=== PATIENT | female | born 1995 | race Caucasian/White ===

== ENCOUNTER → 2017-12-13 17:42 | Outpatient (CLI) | payer BC, SELFPAY | PROVIDERS: Visit Provider Obstetrics & Gynecology | DX: Z34.90 Encounter for supervision of normal pregnancy, unspecified, unspecified trimester (principal) | CPT/HCPCS: 87086 ==

== ENCOUNTER → 2017-12-27 08:51 | Outpatient (CLI) | payer BC, SELFPAY ==
[2017-12-27 09:51] LABS: Absolute Lymphocyte Count 1.78 X10^3/ul (0.83-4.51); Absolute Neutrophil Count 6.8 X10^3/uL (2.0-7.7); Basophil# 0.02 X10^3/uL; Basophil% 0.2 % (0-1); Eosinophil# 0.15 X10^3/uL; Eosinophils% 1.6 % (0-5); Hematocrit 38.4 % (37-47); Hemoglobin 13.3 g/dl (12.0-15.0); Lymphocyte # 1.78 X10^3/ul (4.0); Lymphocyte % 19.2 % (19-41); Mean Corp Hgb Conc 34.6 g/gl (32-36); Mean Corpuscular Volume 86.7 fL (81-99); Monocyte# 0.53 X10^3/uL; Monocyte% 5.7 % (0-10); Neutrophil # 6.77 X10^3/uL (2.7-7.7); Neutrophil % 73.1 % (47-70); Platelet Count 251 K/mm3 (150-450); RBC Distribution Width CV 12.2 % (11.6-14.6); RBC Distribution Width SD 38.1 fl (35.1-43.9); Red Blood Count 4.43 M/mm3 (4.2-5.4); White Blood Count 9.3 K/mm3 (4.4-11.0)
[2017-12-27 09:53] LABS: POSITIVE COUNT NO; POSITIVE DIFFERENTIAL NO; POSITIVE MORPHOLOGY NO
[2017-12-28 09:22] LABS: HIV - WCH Non-Reactive (Nonreactive); Rubella IgG 26.3 IU/mL
[2017-12-28 10:04] LABS: HEPATITIS B SURFACE AG Negative (Negative)
[2017-12-30 02:34] LABS: Rapid Plasmin Reagin (RPR) NONREACTIVE (NONREACTIVE)
== END ==
PROVIDERS: Visit Provider Obstetrics & Gynecology
DX: Z34.90 Encounter for supervision of normal pregnancy, unspecified, unspecified trimester (principal)
CPT/HCPCS: 36415; 85025; 86592; 86703; 86762; 86850; 86900; 87340

== ENCOUNTER → 2018-01-09 09:30 | Outpatient (CLI) | payer BC, SELFPAY | DX: Z36.82 Encounter for antenatal screening for nuchal translucency (principal) | CPT/HCPCS: 36415 ==

== ENCOUNTER → 2018-03-03 07:54 | Outpatient (CLI) | payer MEDICAID, SELFPAY ==
--- NOTE | 2018-03-03 07:54 | DT_ITS ---
This patient was seen during an EMR downtime February 27, 2018 - March 06, 2018. This patient may have a combination of paper and electronic documentation or all paper documentation. All documentation is viewable within the e-chart portion of [employer] ([place] for each patient visit.
--- NOTE | 2018-03-03 07:57 | US_ITS ---
STUDY: SECOND AND THIRD TRIMESTER OBSTETRICAL ULTRASOUND REASON FOR EXAM: Female, 22 years old. Routine survey. LMP: 10/16/2017 TECHNIQUE: Transabdominal PRIOR ULTRASOUND: None. FINDINGS: There is a single intrauterine fetus. The fetus is in a cephalic presentation. There is demonstrated cardiac activity with a heart rate of 140 bpm. There is a normal amniotic fluid volume. The largest amniotic fluid pocket measures 5.6 x 6.8 cm. The placenta is posterior in location and is not low lying. There are Grade 0 placental changes. The cervix measures 3.6 cm in length. The bilateral adnexal regions are normal. BIOMETRY: BPD: 4.7 cm: 20 weeks, 1 days HC: 17.2 cm: 19 weeks, 6 days AC: 14.6 cm: 20 weeks, 0 days FL: 3.2 cm: 20 weeks, 1 days age by current US: 20 weeks, 1 days. ALVAREZ by current US: 07/20/2018. Estimated weight: 323 grams, +/- 47 grams, 59 %. Age by LMP: 19 weeks, 5 days. ALVAREZ by LMP: . ANATOMY: Gender: Indeterminant Cranium: Normal lateral ventricles. Normal choroid plexus. Normal cerebellum. Normal cisterna magna. Normal face, nose and lips. Chest: Normal 4-chamber heart. Abdomen/Pelvis: Normal diaphragm. Normal stomach. Normal abdominal wall. Normal cord insertion. Normal 3 vessel cord. Normal kidneys. Normal bladder. Spine: Normal cervical spine. Normal thoracic spine. Normal lumbar spine. Normal sacrum. Extremities: Normal bilateral upper extremities. Normal bilateral lower extremities. US/OB Anatomy Scan IMPRESSION: Single live intrauterine at 20 weeks, 1 day by ultrasound with ALVAREZ of 07/20/2018. Heart rate of 140 bpm. No suspicious sonographic findings Electronically Signed: Chaitanya Moreno MD at 8:25 EDT , Service support ,
== END ==
PROVIDERS: Visit Provider Obstetrics & Gynecology
DX: O09.91 Supervision of high risk pregnancy, unspecified, first trimester (principal); Z3A.00 Weeks of gestation of pregnancy not specified
CPT/HCPCS: 76805

== ENCOUNTER → 2018-03-24 17:04 | Outpatient (CLI) | payer MEDICAID, SELFPAY ==
--- OUTSIDE RECORDS SUMMARY | 2018-03-24 17:07 | XMS RPT_ITS ---
:1995 Author Organization OHIP Support Name Relationship Address Phone SCHFLER Unavailable [address] + [place] [address] STANISLAV RUIZ Unavailable [address] + [place] [address] SCHFLER Unavailable [address] + [place] [address] STANISLAV RUIZ Unavailable [address] + [place] [address] SCHFLER Unavailable [address] + [place] [address] STANISLAV RUIZ Unavailable [address] + [place] [address] SCHFLER Unavailable [address] + [place] [address] STANISLAV RUIZ Unavailable [address] + [place] [address] SCHFLER Unavailable [address] + [place] [address] STANISLAV RUIZ Unavailable [address] + [place] [address] SCHFLER Unavailable [address] + [place] [address] STANISLAV RUIZ Unavailable [address] + [place] [address] BALBIR RUIZ Unavailable [address] [facility] + [place] [address] STANISLAV RUIZ Unavailable Unavailable + SCHFLER Unavailable [address] + [place] [address] STANISLAV RUIZ Unavailable [address] + [place] [address] SCHFLER Unavailable [address] + [place] [address] STANISLAV RUIZ Unavailable [address] + [place] [address] SCHFLER Unavailable [address] + [place] [address] STANISLAV RUIZ Unavailable [address] + [place] [address] SCHFLER Unavailable [address] + [place] [address] STANISLAV RUIZ Unavailable [address] + [place] [address] SCHFLER Unavailable [address] + [place] [address] STANISLAV RUIZ Unavailable [address] + [place] [address] NOT GIVEN Unavailable Unavailable Unavailable STANISLAV RUIZ Unavailable [address] + [place], [place] [id number] STANISLAV RUIZ Unavailable [address] + [place] [address] U Unavailable Unavailable Unavailable NOT GIVEN Unavailable Unavailable Unavailable NOT GIVEN Unavailable Unavailable Unavailable STANISLAV RUIZ Unavailable [address] + [place], [place] [phone] NOT GIVEN Unavailable Unavailable Unavailable STANISLAV RUIZ Unavailable [address] + [place], [place] [phone] Care Team Providers Name Role Phone [facility] Admitting Unavailable [facility] Attending Unavailable [facility] Primary Care Unavailable JEFFREY GARVEY Consulting Unavailable PROVIDER, UNKNOWN Consulting Unavailable VALENTINA WINKLER DO Admitting Unavailable VALENTINA WINKLER DO Attending Unavailable VALENTINA WINKLER DO Primary Care Unavailable JEFFREY GARVEY Consulting Unavailable PROVIDER, UNKNOWN Consulting Unavailable VALENTINA WINKLER DO Admitting Unavailable VALENTINA WINKLER DO Attending Unavailable VALENTINA WINKLER DO Primary Care Unavailable JEFFREY GARVEY Consulting Unavailable PROVIDER, UNKNOWN Consulting Unavailable VALENTINA WINKLER DO Admitting Unavailable VALENTINA WINKLER DO Attending Unavailable VALENTINA WINKLER DO Primary Care Unavailable JEFFREY GARVEY Consulting Unavailable PROVIDER, UNKNOWN Consulting Unavailable MATHIEU ANDERSON Attending Unavailable CHAVEZ, PHYLLIS Rolon Referring Unavailable NO PRIMARY CARE, Primary Care Unavailable Marcanthony, Phyllis Attending Unavailable Primay Care Physicia, No Primary Care Unavailable Marcanthony, Phyllis Attending Unavailable Marcanthony, Phyllis Attending Unavailable Marcanthony, Phyllis Referring Unavailable Marcanthony, Phyllis Attending Unavailable Marcanthony, Phyllis Attending Unavailable Marcanthony, Phyllis Referring Unavailable Primay Care Physicia, No Primary Care Unavailable John, Leda Attending Unavailable Primay Care Physicia, No Referring Unavailable Marcanthony, Phyllis Attending Unavailable Primay Care Physicia, No Referring Unavailable Marcanthony, Phyllis Attending Unavailable Primay Care Physicia, No Referring Unavailable Primay Care Physicia, No Primary Care Unavailable Marcanthony, Phyllis Attending Unavailable Primay Care Physicia, No Referring Unavailable Primay Care Physicia, No Primary Care Unavailable Primay Care Physicia, No Primary Care Unavailable Marcanthony, Phyllis Attending Unavailable Primay Care Physicia, No Referring Unavailable Primay Care Physicia, No Primary Care Unavailable [place], Molly Attending Unavailable PROBLEMS PROBLEMS DATE TYPE CONDITION / CODE ATTENDING STATUS SOURCE 03/24/2018 Unknown O09.91 - Leda Lopez Active Rahul Supervision of [facility] high risk Hospital , Repository unspecified, first trimester / O09.91(ICD-10) 03/24/2018 Unknown O09.211 - JohnLeda chavarria Active Opal Supervision of [facility] with Hospital history of Repository pre-term labor, first trimester / O09.211(ICD-10) 03/24/2018 Unknown O09.299 - JohnLeda chavarria Active Rahul Supervision of [facility] with [facility] other poor Repository reproductive or obstetric history, unspecified trimester / O09.299(ICD-10) 03/24/2018 Unknown Z36.9 - Encounter [place]eda chavarria Active Opal for Community screening, Hospital unspecified / Repository Z36.9(ICD-10) 03/24/2018 Unknown R80.9 - [place]eda Active Rahul Proteinuria, Community unspecified / Hospital R80.9(ICD-10) Repository 03/24/2018 Unknown Z3A.22 - 22 weeks [place]stown[place]eda chavarria Active Opal gestation of Community / Hospital Z3A.22(ICD-10) Repository 03/09/2018 Unknown Z3A.18 - 18 weeks Chavez, Active Rahul gestation of [facility] / Hospital Z3A.18(ICD-10) Repository 12/14/2017 Unknown Z34.90 - Encounter Chavez, Active Opal for supervision of [facility] normal , Hospital unspecified, Repository unspecified trimester / Z34.90(ICD-10) 08/06/2017 Unknown SUPERVISION OF Chavez, Active Rahul HIGH RISK [facility] , UNS, Hospital FIRST TRIMESTER / Repository O09.91(ICD-10) 08/06/2017 Unknown WEEKS OF GESTATION Brycerimmaamrit, Active Opal OF NOT [facility] SPECIFIED / Hospital Z3A.00(ICD-10) Repository 07/22/2017 Principle Encounter for VALENTINA WINKLER Active Ata Garnett Diagnosis supervision of [facility] , first Repository trimester / Z3481(ICD-10) PROCEDURES PROCEDURES No Procedure Records FoundRESULTS RESULTS CASE SPECIALIST OFFICE VISIT Observed: 03/24/2018 Status: F Source: [place] REPORT 10:02 AM [facility] REPOSITORY [facility] [address] [place] [address] [phone] VISITDate of Service: 03/24/18MR#: [id number] Acct: [id number]: BALBIR RUIZ Rep #: [id number]: 1995 Provider: JOEL Levy/Sex: 22/F [facility]Status: SignedIntakeVital Signs03/24/18 Height 5 ft 3 in03/24/18 Weight: 177 lb 8 oz03/24/18 Body Mass Index (BMI) 31.406 Blood Pressure 131/72IntakeVisit Reasons: 22 weeksChief Complaint: est obInterpreter Required: NoIs patient in pain?: NoAllergiesNo Known Allergies Allergy ( Verified 03/24/18 09:47)Medicationsprenatal vitamin,calcium,uftlnrdz-rdsp-aencc acid tablet 1 tab PO QDAY 12/13/17 [HistoryConfirmed 03/24/18]hydroxyprogesterone (PF)( preserving) 250 mg/mL (1 mL) IM oil 250 mg IM QWEEK 02/07/18[History Confirmed 03/24/18]Last Menstral Period: 10/16/17Zika: Zika virus screening: NegativeBreastfeeding: NoPFSHPFSHSocial HistorySmoking Status: Former smokersecond hand exposure: Noalcohol intake: neversubstance use type: does not usewhat type of physical activity do you participate in: noneadditional social history: CodyPregancy HistoryGravida 3 Elective abortionsHx Para 1 Spontaneous abortions 1Past PregnanciesDel. DatName GA/WeeksOutcome Route Bth WeigInfant GLabor LgAnesthesDel LocaProviderFOBe ht en th ia tn04/28/16Adeline 34 live birNSVD 5lbs 9 oFemale none millersbth - pre unces iqhquejQWO60 weeks: Details: BALBIR RUIZ is a 22 year old who presents for routine OB visit.OB VisitEDD CalculatorEstimated Delivery Date 07/23/18Based on LMP (certain) Current WG 22w 5dFetal Number 1Expected Delivery Route/PlanSVDPrenatal Specific Issue/Plansflu vaccine declinedminichart given: yestdap vaccine: []rhogam: NALARC form signed: declineslabor support person: Codypain management: no epiduralcut cord/dad catch: cord onlybreastfeeding: yesPP control planned: []special requests: []Initial Weight: Not RecordedDate Weight BP Urine PrFHR FuHt Pres MoCTX DilationFetal StVisit NoProviderCommentsE ot v teGA G Effaclucose edVisit NotesVisit Date: 03/24/18Doing well. No VB, LOF. FEDERICO Allen on 03/24/18Visit Date: 02/24/18needs to have second set of sequential screen drawn. no vb lof cramping. anatomy scanordered Phyllis Glass MD on 02/24/18Visit Date: Doing well. Nausea improved. Denies CTX, LOF, VB FEDERICO Allen on Visit Date: 12/27/17no vb cramping doing well Phyllis Glass MD on ACOGFirst TrimesterFirst Trimester: Desire for , Alcohol, Tobacco Cessation, Illicit/RecreationalDrug/Substance Use, Intimate Partner Violence, Barriers to care, Unstable Housing,Communication Barriers, Environmental/Work Hazards, Anticipated Course of Care,Toxoplasmosis Precations, Use of Any medications, Sexual activity, Exercise, Dental Care,Sauna/Hot tub use, Seat Belt use, Childbirth classes/Hospital facilities, ,Travel, Indications for US and Screening for AneuploidyPrenatal DiagnosticsPrenatal DiagnosticsPrenatal LabsBlood Type A POSITIVE 12/27/17Antibody Screen NEGATIVE 12/27/17Hct 38.4 % (37-47) 12/27/17Hgb 13.3 g/dl (12.0-15.0) 12/27/17Obstetrics Ultrasound 03/03/18Rubella IgG Antibody 26.3 IU/mL 12/27/17RPR NONREACTIVE ( NONREACTIVE) 12/27/17Hep Bs Antigen Negative (Negative) 12/27/17Chlam trachomat DNA PCR Negative (Negative) 08/03/17N.gonorrhoeae DNA (PCR) Negative (Negative) 08/03/17Details: HIV:Urine Culture:Sequential Screen:NIPT Screen: ROSConstReports system reviewed and no additional complaints, except as docuGIDenies nausea, Denies vomiting, Denies abdominal painExamConstGeneral: cooperativeNutritional Appearance: well nourishedGIPalpation: soft, nontender, other (gravid)[id number] Urine Glucose Negative Last Edit by Nora Lamas on 03/24/18 09:50Office Urine Protein 1+ Last Edit by Nora Lamas on 03/24/18 09: 50Assessment AND PlanProblems1. Supervision of high risk in first trimester O09.91PRR EDD1 PC Burke Cody2. High risk due to history of labor in first trimester O09.858Z0K0 ALVAREZ 07/23/18 gender surprise PC Burke Melvin plan progesterone soexxstuyl36-42 weekMakena information/order faxed EM3. History of miscarriage, currently O09.2994. screening encounter Z36.9NT on 01/09/18 WNL5. 22 weeks gestation of Z3A.22PlanOrders placed: noneReviewed anatomy USWeekly progesterone injections at homeReviewed of labor precautions, movement/kick countsACOG trimester education reviewed and updatedSee problem list details for updated plan of careGestational age appropriate handout givenRTO: 4 weeksOrdersOrders:CodingLevel of Care CodeOff vis,est,level 3DiagnosesSupervision of high risk in first trimester O09.91Trimester: first trimesterHigh risk due to history of labor in first trimester O09.211Trimester: first trimesterHistory of miscarriage, currently O09.299Antenatal screening encounter Z36.922 weeks gestation of Z3A. 1002 <Electronically signed by Leda CABALLERO>Date Leda CORTEZCCosigner Signature: Date (if applicable)CC: DOWNTIME REPORT Observed: 03/16/2018 Status: F Source: [place] 12:18 PM [facility] [address] [place] [address]Cmjmnish ReportMR#: [id number] Acct: [id number]: BALBIR RUIZ Rep #: [id number]: 1995 22 From: Leandro LewisPCP: Care Physician, No Primary Status: REG JESUIThis patient was seen during an EMR downtime February 27, 2018 - March 06, 2018. This patient mayhave a combination of paper and electronic documentation or all paper documentation. Alldocumentation is viewable within the e-chart portion of [employer] for each patient visit. OB ANATOMY SCAN Observed: 03/03/2018 Status: F Source: RAHUL 7:57 AM [facility]ITAL[facility] [address] [place] [address]UW Anatomy ScanMR#: [id number] Acct: [id number]: BALBIR RUIZ Rep #: [id number]: 1995 F 22 From: Jim Moreno MDPCP: Care Physician, No Primary Status: REG CLIStudy: OB Anatomy Scan Date of Exam: 03/03/18Exam# [id number] Ordering Dr: Phyllis Glass MDSTUDY: SECOND AND THIRD TRIMESTER OBSTETRICAL ULTRASOUNDREASON FOR EXAM: Female, 22 years old. Routine survey.LMP: 10/16/2017TECHNIQUE: TransabdominalPRIOR ULTRASOUND: None. FINDINGS:There is a single intrauterine fetus. The fetus is in a cephalicpresentation. There is demonstrated cardiac activity with a heart rate of140 bpm. There is a normal amniotic fluid volume. The largest amnioticfluid pocket measures 5.6 x 6.8 cm. The placenta is posterior in locationand is not low lying. There are Grade 0 placental changes. The cervixmeasures 3.6 cm in length. The bilateral adnexal regions are normal.BIOMETRY:BPD: 4.7 cm: 20 weeks, 1 daysHC: 17.2 cm: 19 weeks, 6 daysAC: 14.6 cm: 20 weeks, 0 daysFL: 3.2 cm: 20 weeks, 1 daysFetal age by current US: 20 weeks, 1 days. ALVAREZ by current US: 07/20/2018.Estimated weight: 323 grams, +/- 47 grams, 59 %. Age by LMP: 19 weeks, 5 days. ALVAREZ by LMP: . ANATOMY:Gender: IndeterminantCranium: Normal lateral ventricles. Normal choroid plexus. Normalcerebellum. Normal cisterna magna. Normal face, nose and lips.Chest: Normal 4-chamber heart.Abdomen/Pelvis: Normal diaphragm. Normal stomach. Normal abdominal wall.Normal cord insertion. Normal 3 vessel cord. Normal kidneys. Normalbladder.Spine: Normal cervical spine. Normal thoracic spine. Normal lumbarspine. Normal sacrum.Extremities: Normal bilateral upper extremities. Normal bilateral lowerextremities. ORDER #: [id number] US/OB Anatomy ScanIMPRESSION:Single live intrauterine at 20 weeks, 1 day by ultrasound withEDD of 07/20/2018. Heart rate of 140 bpm. No suspicious sonographicfindingsElectronically Signed:Chaitanya Moreno MD2018/03/08 at 8:25 EDTT [phone], Service support , NP: No Primary Care Physician; Phyllis Glass MD Social Services Aide:Signed CASE SPECIALIST OFFICE VISIT Observed: 02/24/2018 Status: F Source: RAH[place] REPORT 11:14 AM [facility] [address] [place], [place] [phone] VISITDate of Service: 02/24/18MR#: [id number] Acct: [id number]: BALBIR RUIZ Rep #: [id number]: 1995 Provider: Phyllis Glass MDAge/Sex: 22/F [facility]: SignedIntakeVital Signs02/24/18 Height 5 ft 3 in02/24/18 Weight: 167 lb 8 oz02/24/18 Body Mass Index (BMI) 29.706 Blood Pressure 124/82IntakeVisit Reasons: OB - 18 WEEKSIs patient in pain?: NoAllergiesNo Known Allergies Allergy (Verified 02/14/18 12:18) Medicationsprenatal vitamin,calcium,vivtfxzt-ssun-xnhnb acid tablet 1 tab PO QDAY 12/13/17 [HistoryConfirmed 02/14/18]hydroxyprogesterone (PF)( preserving) 250 mg/mL (1 mL) IM oil 250 mg IM QWEEK 02/07/18[History Confirmed 02/14/18]Last Menstral Period: 10/16/17Zika: Zika virus screening: NegativePFSHPFSHSocial HistorySmoking Status: Former smokersecond hand exposure: Noalcohol intake: neversubstance use type: does not usewhat type of physical activity do you participate in: noneadditional social history: CodyPregancy HistoryGravida 3 Elective abortionsHx Para 1 Spontaneous abortions 1Past PregnanciesDel. DatName GA/WeeksOutcome Route [facility] Vaibhavt Taylor LgAnesthesDel LocaProviderFOBe ht en th ia tn04/28/16Adeline 34 live birNSVD 5lbs 9 oFemale none millersbth - pre unces urgtermHPIOB - 18 WEEKS:Details: BALBIR RUIZ is a 22 year old who presents for routine OB visit.OB VisitEDD CalculatorEstimated Delivery Date 07/23/18Based on LMP (certain) 10/16/17Current WG 18w 5dFetal Number 1Expected Delivery Route/PlanSVDPrenatal Specific Issue/ Plansflu vaccine declinedminichart given: yestdap vaccine: []rhogam: []LARC form signed: []labor support person: Codypain management: []cut cord/dad catch: cord onlybreastfeeding: yesPP control planned: []special requests: []Initial Weight: Not RecordedDate Weight BP Urine PrFHR FuHt Pres MoCTX DilationFetal StVisit NoProviderCommentsE ot v teGA G Effaclucose edVisit NotesVisit Date: 02/24/18needs to have second set of sequential screen drawn. no vb lof cramping. anatomy scanordered Phyllis Glass MD on 02/24/18Visit Date: 01/24/18Doing well. Nausea improved. Denies CTX, LOF, VB FEDERICO Allen on 01/24/18Visit Date: 12/27/17no vb cramping doing well Phyllis Glass MD on 01/04/18ACOGFirst TrimesterFirst Trimester: Desire for , Alcohol, Tobacco Cessation, Illicit/RecreationalDrug/Substance Use, Intimate Partner Violence, Barriers to care, Unstable Housing,Communication Barriers, Environmental/Work Hazards, Anticipated Course of Care,Toxoplasmosis Precations, Use of Any medications, Sexual activity, Exercise, Dental Care, Sauna/Hot tub use, Seat Belt use, Childbirth classes/Hospital facilities, , Travel, Indications for US and Screening for AneuploidyPrenatal DiagnosticsPrenatal DiagnosticsPrenatal LabsBlood Type A POSITIVE 12/27/17Antibody Screen NEGATIVE 12/27/17Hct 38.4 % (37-47) 12/27/17Hgb 13.3 g/dl (12.0-15.0) 12/27/17Rubella IgG Antibody 26.3 IU/mL 12/27/17RPR NONREACTIVE ( NONREACTIVE) 12/27/17Hep Bs Antigen Negative (Negative) 12/27/17Chlam trachomat DNA PCR Negative (Negative) 08/03/17N.gonorrhoeae DNA (PCR) Negative (Negative) 08/03/17Details: HIV:Urine Culture:Sequential Screen:NIPT Screen:ROSConstDenies fever(s)GIDenies abdominal pain, Reports as per HPIGUDenies vaginal discharge, Denies abnormal vaginal bleeding, Reports as per HPIExamConstGeneral: healthy appearing, comfortable, no acute distressGIInspection: normal to inspectionPalpation: soft , vgwzpnsfnJuzgdhtXGSOM6Fjyymn Urine Glucose Negative Last Edit by Silvina Harley on 02/24/18 11:10Office Urine Protein Negative Last Edit by Silvina Harley on 02/24/18 11:10Assessment AND PlanProblems1. Supervision of high risk in first trimester O09.91PRR EDD1 PC Burke Cody2. High risk due to history of labor in first trimester O09.539Q2O3 ALVAREZ 07/23/18 gender surprise PC Lashay Melvin plan progesterone efnbbfndzg15 -36 weekMakena information/order faxed 01/24/18 EM3. History of miscarriage, currently O09.2994. screening encounter Z36.9NT on 01/09/18 WNL5. 18 weeks gestation of Z3A.18PlanOrders placed: anatomy scanACOG trimester education reviewed and updated.see problem list details for updated plan management information.GA appropriate handout given.OrdersOrders:CodingLevel of Care CodeOB RoutineDiagnosesSupervision of high risk in first trimester O09.91Trimester: first trimesterHigh risk due to history of labor in first trimester O09.211Trimester: first trimesterHistory of miscarriage, currently O09.299Antenatal screening encounter Z36.918 weeks gestation of Z3A. 1114 <Electronically signed by Phyllis Glass MD>Date Phyllis Glass MDCosigner Signature: Date (if applicable)CC: OFFICE VISIT REPORT Observed: 02/22/2018 Status: F Source: RAHUL 2:41 PM [facility] CarsonR[place], [place] [address]IMUTRU VISITDate of Service: 02/14/18MR#: [id number] Acct: [id number]: BALBIR RUIZ Rep #: [id number]: 1995 Provider: Phyllis Glass MDAge/Sex: Location: [facility].CStatus: SignedIntakeVital Signs02/14/18 Height 5 ft 3 in02/14/18 Weight: 164 lb 2 oz02/14/18 Body Mass Index (BMI) 29.005 Blood Pressure 119/79IntakeVisit Reasons: INJECTIONInterpreter Required: NoAllergiesNo Known Allergies Allergy (Verified 02/14/18 12:18)Medicationsprenatal vitamin,calcium,zvaqnrog-plfb-fwmbq acid tablet 1 tab PO QDAY 12/13/17 [HistoryConfirmed 02/14/18]hydroxyprogesterone (PF)( preserving) 250 mg/mL (1 mL) IM oil 250 mg IM QWEEK 02/07/18[History Confirmed 02/14/18]Post menopausal: NoPatient : YesNursing NoteHeather presented for a [place] injection. Patient here with sister to be educated onadministering Chere[place] injection. Sister has given IM injections in the past. Patient's sistereducated on drawing up, prepping skin, administering injection in gluteal muscle. Patient'ssister was able to verbally recall nurses instructions. She was then able to successfullyadminister injection without any difficulty. She feels comfortable administering this to thepatient in the home setting. No questions at this time. Patient and patient's sister givenoffice contact if any questions should arise. [place] injection administer by sister in leftgluteal muscle. 1 ml was administer. Lot #[id number], expiration date 2019. Patient will nowbe getting these injections in the home setting.02/22/18 1441 <Electronically signed by Phyllis Glass MD>Date Phyllis Glass [facility] – TULSAosigner Signature: Date (if applicable)CC: OFFICE VISIT REPORT Observed: 02/15/2018 Status: F Source: RAHUL 4:50 AM [facility] [address]SYGXQE VISITDate of Service: 02/07/18MR#: [id number] Acct: [id number]: SARABALBIR Boyd Rep #: [id number]: 1995 Provider: Phyllis Glass MDAge/Sex: 22/F Location: [facility] SURPRISEtatus: SignedIntakeVital Signs02/07/18 Height 5 ft 3 in02/07/18 Weight: 165 lb 2 oz02/07/18 Body Mass Index (BMI) 29.205 Blood Pressure 120/64IntakeVisit Reasons: PROGESTERONE INJECTION -16 WEEKSInterpreter Required: NoAllergiesNo Known Allergies Allergy (Verified 02/14/18 12:18)Medicationsprenatal vitamin,calcium,sqvmezqq-uyhb-qauzx acid tablet 1 tab PO QDAY 12/13/17 [HistoryConfirmed 02/14/18]hydroxyprogesterone (PF)( preserving) 250 mg/mL (1 mL) IM oil 250 mg IM QWEEK 02/07/18[History Confirmed 02/14/18]Post menopausal: NoPatient : YesOffice ProceduresInjectionsProcedure performed by: Linda Narayanan number: [id number]: AMRetewi PharmaceuticalsExpire date: 03/25/20Dose of injection: 1 mLSite of injection: right gluteal IMMedication Given: YesAdditional Details: Patient tolerated [place] injection well.02/15/18 0450 <Electronically signed by Phyllis Glass MD> Date [facility] Signature: Date (if applicable)CC: CASE SPECIALIST OFFICE VISIT Observed: 01/24/2018 Status: F Source: [place] REPORT 12:16 PM [facility] RE[facility] [address] [place], [place] [phone] VISITDate of Service: 01/24/18MR#: [id number] Acct: [id number]: BALBIR RUIZ Rep #: [id number]: 1995 Provider: JOEL Levy/Sex: 22/F [facility]: SignedIntakeVital Signs01/24/18 Height 5 ft 3 in01/24/18 Weight: 162 lb 8 oz01/24/18 Body Mass Index (BMI) 28.805 Blood Pressure 128/74IntakeVisit Reasons: 14 weeksInterpreter Required: NoAccompanied by: husbandIs patient in pain?: NoAllergiesNo Known Allergies Allergy (Verified 10/13 08:49)Medicationsprenatal vitamin,calcium,uopshihl-ewje-hklew acid tablet 1 tab PO QDAY 12/13/17 [HistoryConfirmed 01/24/18]Last Menstral Period: 10/16/17Zika: Zika virus screening: NegativeBreastfeeding: NoPFSHPFSHSocial HistorySmoking Status: Former smokersecond hand exposure: Noalcohol intake: neversubstance use type : does not usewhat type of physical activity do you participate in: noneadditional social history: CodyPregancy HistoryGravida 3 Elective abortionsHx Para 1 Spontaneous abortions 1Past PregnanciesDel. DatName GA/WeeksOutcome Route [facility] WeigInfant GLabor LgAnesthesDel LocaProviderFOBe ht en ia tn04/28/16Adeline 34 live birNSVD 5lbs 9 oFemale none millersbth - pre unces kkdwglrPAF02 weeks:Details: BALBIR RUIZ is a 22 year old who presents for routine OB visit.OB VisitEDD CalculatorEstimated Delivery Date 07/23/18Based on LMP (certain) 10/16/17Current WG 14w 2dFetal Number 1Expected Delivery Route/PlanSVDPrenatal Specific Issue/Plansflu vaccine declinedminichart given: yestdap vaccine: []rhogam: []LARC form signed: []labor support person: Codypain management: []cut cord/dad catch: cord onlybreastfeeding: yesPP control planned: []special requests: []Initial Weight: Not RecordedDate Weight BP Urine PrFHR FuHt Pres MoCTX DilationFetal StVisit NoProviderCommentsE ot v teGA G Effaclucose edVisit NotesVisit Date: 01/24/18Doing well. Nausea improved. Denies CTX, LOF, VB FEDERICO Allen on 01/24/18Visit Date: 12/27/17no vb cramping doing well Phyllis Glass MD on 01/04/18ACOGFirst TrimesterFirst Trimester: Desire for , Alcohol, Tobacco Cessation, Illicit/RecreationalDrug/Substance Use, Intimate Partner Violence, Barriers to care, Unstable Housing,Communication Barriers, Environmental/Work Hazards, Anticipated Course of Care,Toxoplasmosis Precations, Use of Any medications, Sexual activity, Exercise, Dental Care, Sauna/Hot tub use, Seat Belt use, Childbirth classes/Hospital facilities, , Travel, Indications for US and Screening for AneuploidyPrenatal DiagnosticsPrenatal DiagnosticsPrenatal LabsBlood Type A POSITIVE 12/27/17Antibody Screen NEGATIVE 12/27/17Hct 38.4 % (37-47) 12/27/17Hgb 13.3 g/dl (12.0-15.0) 12/27/17Rubella IgG Antibody 26.3 IU/mL 12/27/17RPR NONREACTIVE ( NONREACTIVE) 12/27/17Hep Bs Antigen Negative (Negative) 12/27/17Chlam trachomat DNA PCR Negative (Negative) 08/03/17N.gonorrhoeae DNA (PCR) Negative (Negative) 08/03/17Details: HIV:Urine Culture:Sequential Screen:NIPT Screen: CegtnzeVEYAX0Swwhar Urine Glucose Negative Last Edit by Linda Naaryanan on 01/24/18 08: 55Office Urine Protein Negative Last Edit by Linda Narayanan on 01/24/18 08: 55Assessment AND PlanProblems1. High risk due to history of labor in first trimester O09.710X8M9 ALVAREZ 07/23/18 PC Lashay Melvin plan progesterone injections 16-36 weeks2. Supervision of high risk in first trimester O09.91PRR EDD1 PC Lashay Cody3. History of miscarriage, currently O09.2994. screening encounter Z36.9NT on WNL5. 14 weeks gestation of Z3A.14PlanOrders placed: anatomy US 19-20 weeksWill do 2nd SSQ on 02/06Reviewed of labor precautions, movement/kick countsACOG trimester education reviewed and updatedSee problem list details for updated plan of careGestational age appropriate handout givenRTO: 4 weeksOrdersOrders: CodingLevel of Care CodeOB RoutineDiagnosesHigh risk due to history of labor in first trimester O09.211Trimester: first trimesterSupervision of high risk in first trimester O09.Trimester: first trimesterHistory of miscarriage, currently O09.299Antenatal screening encounter Z36.914 weeks gestation of Z3A. 1216 <Electronically signed by Leda John BEARING INSPECTOR-C>Date Leda Lopez BEARING INSPECTOR-CCosigner Signature: Date (if applicable)CC: CASE SPECIALIST OFFICE VISIT Observed: 01/04/2018 Status: F Source: RAHUL REPORT 6:21 AM [facility] RE[facility] [address], [place] [phone] VISITDate of Service: 12/27/17MR#: [id number] Acct: [id number]: BALBIR RUIZ Rep #: [id number]: 1995 Provider: Phyllis Glass MDAge/Sex: 22/F [facility]: SignedIntakeVital Signs12/27/17 Height 5 ft 3 in12/27/17 Weight: 162 lb 8 oz12/27/17 Body Mass Index (BMI) 28.804 Blood Pressure 137/79IntakeVisit Reasons: (OB)Milk Vendor Required: NoAccompanied by: husbandIs patient in pain?: NoAllergiesNo Known Allergies Allergy (Verified 12/27/17 08:35)Medicationsprenatal vitamin,calcium,minerals-iron- folic acid tablet 1 tab PO QDAY 12/13/17 [HistoryConfirmed 12/27/17]Last Menstral Period: 10/16/17Zika: Zika virus screening: NegativePFSHPFSHSocial HistorySmoking Status: Former smokersecond hand exposure: Noalcohol intake: neversubstance use type : does not usewhat type of physical activity do you participate in: noneadditional social history: CodyPregancy HistoryGravida 3 Elective abortionsHx Para 1 Spontaneous abortions 1Past PregnanciesDel. DatName GA/WeeksOutcome Route [facility] LocaProviderFOBe ht en th ia tn04/28/16Adeline 34 live birNSVD 5lbs 9 oFemale none millersbth - pre unces urgtermHPIPrenatal (OB):Details: BALBIR RUIZ is a 22 year old who presents for routine OB visit.OB VisitEDD CalculatorEstimated Delivery Date 07/23/18Based on LMP (certain) 10/16/17Current WG 11w 3dFetal Number 1Expected Delivery Route/PlanSVDPrenatal Specific Issue/Plansflu vaccine declinedInitial Weight: Not RecordedDate Weight BP Urine PrFHR FuHt Pres MoCTX DilationFetal StVisit NoProviderCommentsE ot v teGA G Effaclucose edVisit NotesVisit Date: 12/27/17no vb cramping doing well Phyllis Glass MD on 01/04/18ACOGFirst TrimesterFirst Trimester: Desire for , Alcohol, Tobacco Cessation, Illicit/RecreationalDrug/Substance Use, Intimate Partner Violence, Barriers to care, Unstable Housing,Communication Barriers, Environmental/Work Hazards, Anticipated Course of Care,Toxoplasmosis Precations, Use of Any medications, Sexual activity, Exercise, Dental Care,Sauna/Hot tub use, Seat Belt use, Childbirth classes/Hospital facilities, ,Travel, Indications for US and Screening for AneuploidyPrenatal DiagnosticsPrenatal DiagnosticsPrenatal LabsBlood Type A POSITIVE 12/27/17Antibody Screen NEGATIVE 12/27/17Hct 38.4 % (37-47) 12/27/17Hgb 13.3 g/dl (12.0-15.0) 12/27/17Rubella IgG Antibody 26.3 IU/ mL 12/27/17RPR NONREACTIVE (NONREACTIVE) 12/27/17Hep Bs Antigen Negative (Negative) 12/27/17Chlam trachomat DNA PCR Cancelled N.gonorrhoeae DNA (PCR) Cancelled 12/13/17Details: HIV:Urine Culture:Sequential Screen: NIPT Screen:YhftdsdQXCIQ0Aopszy Urine Glucose Negative Last Edit by Linda Narayanan on 12/27/17 08:39Office Urine Protein Negative Last Edit by Linda Narayanan on 12/27/17 08:39Assessment AND PlanProblems1. High risk due to history of labor in first trimester O09.276V7G3 ALVAREZ 07/23/18 PC Burke Melvin plan progesterone injections 16-36 weeks2. History of miscarriage, currently O09.2993. Supervision of high risk in first trimester O09.91 EDD1 PC Burke CodyPlanOrders placed: noneACOG trimester education reviewed and updated.see problem list details for updated plan management information.GA appropriate handout given.OrdersOrders:CodingLevel of Care CodeOB RoutineDiagnosesHigh risk due to history of labor in first trimester O09.Trimester: first trimesterHistory of miscarriage, currently O09.299Supervision of high risk in first trimester O09.Trimester: first jkujkpdfe11/11/18 0621 <Electronically signed by Phyllis Glass MD>Date Phyllis Glass MDCosigner Signature: Date (if applicable)CC: CBC W/DIFF, AUTOMATED Collected: 12/27/2017 Status: F Source: RAHUL 8:58 AM [facility] RE[facility] TYPE CODE TESTS RESULT OUT OF RANGE REFERENCE UNITS LAB L100.1000 Normal 4.4-11.0 K/mm3 WBC 9.3 LAB L100.1200 Normal 4.2-5.4 M/mm3 RBC 4.43 LAB L100.1300 Normal 12.0-15.0 g/dl HGB 13.3 LAB L100.1400 Normal 37-47 % HCT 38.4 LAB L100.1500 Normal 81-99 fL MCV 86.7 LAB L100.1600 Normal 27.0-32.0 pg MCH 30.0 LAB L100.1700 Normal 32-36 g/gl MCHC 34.6 LAB L100.1810 Normal 11.6-14.6 % RDW 12.2 CV LAB L100.1820 Normal 35.1-43.9 fl RDW 38.1 SD LAB L100.1900 Normal 150-450 K/mm3 PLT 251 LAB L100.2000 Normal 6.2-12.0 fl MPV 11.0 LAB L100.2100 High 47-70 % NEUT% 73.1 LAB L100.2200 Normal 19-41 % LY% 19.2 LAB L100.2300 Normal 0-10 % MONO% 5.7 LAB L100.2400 Normal 0-5 % EO% 1.6 LAB L100.2500 Normal 0-1 % BASO% 0.2 LAB L100.2550 Normal 0.0-0.9 % IM 0.200 GRAN % Result Comment: IG% - Immature Granulocytes (promyelocytes, myelocytes andmetamyelocytes) > 1% indicates that a LEFT SHIFT is Present. LAB L100.2620 Normal 2.0-7.7 X10 3/uL Absolute Neut 6.8 LAB L100.2720 Normal 0.83-4.51 X10 3/ul Absolute Lymph 1.78 Performed By: #### L100.0100, B101.7450 ####[facility] [address] [facility]. [place], [place], [id number] TYPE AND SCREEN Collected: 12/27/2017 Status: F Source: [place] 8:58 AM [facility] REPOSITORY Order Comment: Reason for Type AND Screen/Red Cells: TYPE CODE TESTS RESULT OUT OF RANGE REFERENCE UNITS LAB B10.0800 Normal BLOOD A TYPE GEL POSITIVE LAB B100.4000 Normal Antibody NEGATIVE Screen Performed By: #### L100.0100, B101.7450 ####[facility] [address] [facility]. [place], [place], [id number] RUBELLA IGG Collected: 12/27/2017 Status: F Source: [place] 8:58 AM [facility] TYPE CODE TESTS RESULT OUT OF RANGE REFERENCE UNITS LAB L509.4000 Normal IU/mL Rubella 26.3 IgG Result Comment: Antibody results Interpretation of Immune Status < 5 IU/ml Presumed Non-immune 5 - < 10 IU/ml Equivocal > or = 10 IU/ml Presumed Immune Performed By: #### L509.4000, L3890.6005 ####[facility] [address] [place], [address] #### L3100.0390 ####[facility] (refer to report for specific site)refer to report for address and phone number HIV - [facility] Collected: 12/27/2017 Status: F Source: RAHUL 8:58 AM [facility] TYPE CODE TESTS RESULT OUT OF RANGE REFERENCE UNITS LAB L3890.6005 Normal Nonreactive HIV - WC Non-Reactive Performed By: #### L509.4000, L3890.6005 ####[facility] [address] [place], [address] #### L3100.0390 ####[facility] (refer to report for specific site)refer to report for address and phone number HEPATITIS B SURFACE Collected: 12/27/2017 Status: F Source: RAHUL AG 8:58 AM [facility] TYPE CODE TESTS RESULT OUT OF RANGE REFERENCE UNITS LAB L3100.0400 Normal Negative HB Negative SURF AG Result Comment: Performed at: [facility] [place]Co[place] [id number] Director: Costa Hawkins PhD, Phone: [phone] Performed By: #### L509.4000, L3890.6005 ####[facility] [address] [place], [address] #### L3100.0390 ####[facility] (refer to report for specific site)refer to report for address and phone number RAPID PLASMIN REAGIN Collected: 12/27/2017 Status: F Source: RAHUL (RPR) 8:58 AM [facility] TYPE CODE TESTS RESULT OUT OF REFERENCE UNITS RANGE LAB L700.5000 Normal NONREACTIVE RPR NONREACTIVE Performed By: #### L700.5000 ####[facility] [address] [place], [address] CASE SPECIALIST OFFICE VISIT Observed: 12/13/2017 Status: F Source: RAHUL REPORT 9:10 PM [facility] [address], [place] [phone] VISITDate of Service: 12/13/17MR#: [id number] Acct: [id number]: BALBIR RUIZ Rep #: [id number]: 1995 Provider: Phyllis Glass MDAge/Sex: 22/F [facility].BWCStatus: SignedIntakeVital Signs12/13/17 Height 5 ft 3 in12/13/17 Weight: 160 lb 4 oz12/13/17 Body Mass Index (BMI) 28.303/ Blood Pressure 121/66IntakeVisit Reasons: NEW OB LMP 10/16/17Interpreter Required: NoAccompanied by: Family / OtherIs patient in pain?: NoAllergiesNo Known Allergies Allergy (Verified 01/19/15 06:30)Medicationsprenatal vitamin,calcium,wipqbovr-hacu-oxedj acid tablet 1 tab PO QDAY 12/13/17 [HistoryConfirmed 12/13/17]Last Menstral Period: 10/16/17PFSHPFSHSocial HistorySmoking Status: Former smokersecond hand exposure: Noalcohol intake: neversubstance use type: does not usewhat type of physical activity do you participate in: noneadditional social history: CodyPregancy HistoryGravida 2 Elective abortionsHx Para 1 Spontaneous abortionsPast PregnanciesDel. DatName GA/WeeksOutcome Route [facility] LocaProviderFOBe ht en wv tn04/28/16Adeline 34 live birNSVD 5lbs 9 oFemale none millersbth - pre unces urgtermHPINEW OB LMP 10/16/17:Details: BALBIR RUIZ is a 22 year old who presents for New OB visit.OB VisitEDD CalculatorEstimated Delivery Date 07/23/18Based on LMP (certain) 10/16/17Current WG 8w 2dFetal Number 1Expected Delivery Route/PlanSVDPrenatal Specific Issue/Plansflu vaccine declinedMenstrual HistoryLast Menstral Period: 10/16/17Reported LMP: definiteNormal amount/duration: YesOn hormonal BC at conception: NoAntepartum RecordGenetic Screening: Congenital Heart Defect: Other, Neural Tube Defect: Other, HemoglobinopathyOr Carrier: Other, Cystic Fibrosis: Other, Chromosome Abnormality: Other, [place]: Other,Hemophilia: Other, Intellectual Disability/Autism: Other, Recurrent Loss/Stillbirth:Other, Other Structural Defect: Other , Other Genetic Disease: Other, Maternal MetabolicDisorder: OtherInfection History: Live with someone with TB or Exposed to TB: No, Patient or Partner hashistory of Genital Herpes: No, Rash or Viral illness since last mentrual period: No, PriorGBS-Infected child: No, History of STD: No, HIV Infection: No, History of Hepatitis: No, Recenttravel outside of [place]: No, Concern for Hep exposure: No, Varicella immune: YesMedical HistoryMedical History: Negative: Diabetes, Hypertension, Heart disease, Auto-immune disorder, Kidneydisease/UTI, Neurologic/epilepsy, Psychiatric, Depression/ depression,Hepatitis/ liver disease, Varicosities/phlebitis, Thyroid dysfunction, Trauma/domestic violence,History of blood transfusions, D (Rh) Sensitized, Pulmonary (e.g.,TB,Asthma), Seasonalallergies, Drug/latex allergies/reactions, Breast, Lion Tamer surgery, Operations/hospitalizations,Anesthetic complications, History of abnormal pap, Uterine anomaly/laury, Infertility,Anti-retroviral treatment, Relevant family history, OtherACOGFirst TrimesterFirst Trimester: Desire for , Alcohol , Tobacco Cessation, Illicit/RecreationalDrug/Substance Use, Intimate Partner Violence, Barriers to care, Unstable Housing,Communication Barriers, Environmental/Work Hazards, Anticipated Course of Care,Nurtrition and weight gain, Toxoplasmosis Precations, Use of Any medications, Sexual activity,Exercise, Dental Care, Sauna/Hot tub use, Seat Belt use, Childbirth classes/Hospitalfacilities, , Travel, Indications for US and Screening for AneuploidyROSConstDenies fever(s), Reports system reviewed and no additional complaints, except as docu, ReportsfatigueEyesReports system reviewed and no additional complaints, except as docuENTReports system reviewed and no additional complaints, except as docuCardDenies chest pain, Denies shortness of breathRespReports system reviewed and no additional complaints, except as docu, Denies shortness ofbreath, Denies coughGIReports nausea, Denies abdominal painGUReports system reviewed and no additional complaints, except as docuMuscReports system reviewed and no additional complaints, except as docuSkin/BreastReports system reviewed and no additional complaints, except as docuNeuroYes system reviewed and no additional complaints, except as docuPsychReports system reviewed and no additional complaints, except as docuEndoReports fatigue , Reports system reviewed and no additional complaints, except as docuExamConstGeneral: healthy appearing, comfortable, no acute distressOrientation: alertHENMTHead: normal to inspection, atraumatic, normocephalicEars: external ears normal, hearing grossly normal bilaterallyNose: nares normal, external nose normalMouth: oral mucosae normalTeeth and gingiva: dentition normalEyesGeneral: appearance normal, both eyes and all related structuresNeckNeck: no lymphadenopathy, supple, normal visual inspectionThyroid: thyroid normalChestChest palpation AND inspection: normal inspection of the chestBreast inspection: normal inspection of the breasts, normal inspection of the axillaeBreast palpation: normal palpation of the breasts, normal palpation of the axillaeRespEffort AND Inspection: normal respiratory effortGIInspection: normal to inspectionPalpation: soft, no hepatosplenomegalyGUGeneral: bladder normal to palpationExternal Female Exam: normal external appearance, normal appearance of the urethraUrethra: normal appearance of the urethraSpeculum Exam - Vagina: normal appearance of the vagina, normal vaginal dischargeSpeculum Exam - Cervix: normal appearance of the cervixBimanual Exam- Vagina AND Uterus: bladder normal to palpation, normal bimanual exam, uterusnon- tender, otherBimanual Exam- Adnexa, other: adnexae non-tenderSkinGeneral: no rashes or lesions notedNeuroMotor: muscle tone normal throughout, no movement abnormalities notedExtremGeneral: normal to inspection, full ROMAssessment AND PlanProblems1. High risk due to history of labor in first trimester O09.000C7U0 ALVAREZ 07/23/18 PC Lashay Melvin plan progesterone injections 16-36 weeksPlanPatient oriented to practice and discussed care expectations and screenings. ACOGpregnancy book offered to patient. labs and 19-20 week anatomy ultrasound ordered.Genetic screening offered to patient and patient chose: consideirng nt.fu in 2 weeks.OrdersOrders:MedicationsDiscontinued:hydrocodone-acetaminophen 5-325 mg Discontinue1 tab PO Q4H PRN PRN Pain Edgar Curtis Reason: Pt no longer takingnaproxen Discontinued Reason: Pt no longer ta500 mg PO BID Edgar BurtSupplemental InfoACOG book given and patient encouraged to read about nutrition, exercise, weightgain, and food avoidance in .CodingLevel of Care CodeOB RoutineDiagnosesHigh risk due to history of labor in first trimester O09.211Trimester: first xmbuegwvm22/20/182109 <Electronically signed by Phyllis Glass MD&gt ;Date Phyllis Glass [facility] – TULSAosigner Signature: Date (if applicable)CC: Observed: 12/13/2017 Status: F Source: RAHUL CULTURE, URINE 5:43 PM [facility] RE[facility]ORY Urine CultureCulture exhibits no growth. Performed By: #### M100.0650 ####[facility] [address] [place], [address] CT/NG [facility] BY PCR Collected: 08/03/2017 Status: F Source: RAHUL 10:10 PM [facility] RE[facility] TYPE CODE TESTS RESULT OUT OF RANGE REFERENCE UNITS LAB L8200.2100 Normal Negative Negative Chlam Trac PCR LAB L8200.2200 Normal Negative NG Negative by PCR Performed By: #### L8200.2000 ####[facility] [address] [facility] [facility] [place], [address] Observed: 08/03/2017 Status: F Source: RAHUL CULTURE, URINE 10:10 PM [facility] RE[facility] Urine CultureBelow infection level. ORGANISM 1: Mixed Gram Positive OrganismsColony Count 1000-10,000MIX CULTURE Mixed contaminants. Submit a new specimen if indicated. Performed By: #### M100.0650 ####[facility] [address] [place], [address] ALLERGIES ALLERGIES DATE TYPE / CODE NAME / CODE REACTION SEVERITY SOURCE 03/24/2018 Drug No Known Unknown [place] Allergy/362457546(S Allergies/F[address] [facility] [place] [place]) [address](RXNORM) Hospital Repository 01/19/2015 Drug No Known [place] Allergy/299426861(S Allergies/F[address]) [address](RXNORM) Hospital Repository Miscellaneous No Known Drug Moderate Ata [place] Allergy/854147834(S Allergies ([facility]) Modifier) Hospital (Qualifier Repository Value) ENCOUNTERS ENCOUNTERS ADMIT/DISCHARGE ACCOUNT ADMITTING ENCOUNTER LOCATION SOURCE NUMBER CLASS 03/24/2018/03/24/20 [id number] Ambulatory BMSBuilding:B [place] [facility] Repository 03/03/2018 [id number] Ambulatory [facility] Hospital ing:OPUS Repository 02/24/2018/02/25/20 [id number] Ambulatory BMSBuilding:B [place] [address] [facility] Repository 02/14/2018/02/15/20 [id number] Ambulatory BMSBuilding:B Rahul [address] [facility] Repository 02/07/2018/02/08/20 [id number] Ambulatory BMSBuilding:B Opal [facility] Repository 01/24/2018/01/25/20 [id number] Ambulatory BMSBuilding:B Rahul [address] [facility] Repository 01/09/2018/01/10/20 [id number] Ambulatory Building:[facility] Repository 12/27/2017 [id number] Ambulatory [facility] Hospital ing:LAB Repository 12/27/2017 [id number] Ambulatory BMSBuilding:B [place] [facility] Repository 12/27/2017/12/28/19 [id number] Ambulatory BMSBuilding:B [place] [address] [facility] Repository 12/13/2017 [id number] Ambulatory [facility] ing:LABSPEC Repository 12/13/2017/12/14/19 [id number] Ambulatory BMSBuilding:B [place] [address] [facility] Repository 08/17/2017 [id number] VALENTINA WINKLER Ambulatory [facility] Repository 08/03/2017 [id number] Ambulatory [facility] ing:LABSPEC Repository 07/22/2017 [id number] PETERSON VALENTINA Ambulatory [facility] Repository 07/22/2017 [id number] PETERSON VALENTINA Inpatient [facility] Repository 06/20/2017/06/20/20 [id number] ATA, [address] Repository PAYERS PAYERS ENCOUNTER GUARANTOR PAYER SUBSCRIBER SOURCE 03/24/2018 BALBIR C Primary BALBIR C [place] [id number] Insurance:FUAD DOWNS: [facility] [id number] Number: [place]ository [place] [address]Tmp: [id number] Date:6306-55-14[address] () [address], [place] [address]CC: 03/24/2018 Secondary NOT GIVENUNK [place] Insurance:SELF PAY [facility] Number: Effective Repository Date:2018-03-24 03/03/2018 BALBIR C Primary BALBIR C [place] [id number] Insurance:FUAD DOWNS: [facility] [id number] [facility] Center Number: Repository [place] [address]Pfa: [id number] Date:9163-16-13W[address] ) [address], [place] [address]CT: 03/03/2018 Secondary NOT GIVENUNK [place] Insurance:SELF PAY [facility] Number: Effective Repository Date:2018-02-24 02/24/2018 BALBIR C Primary BALBIR C [place] [id number] Insurance:Chloé TAY: [facility] Number: [id number], [id number] [place]ository [place] [address]Mys: ve Date:9827-09-90YV [address] DON[address] () [address]FM: 02/24/2018 Secondary BALBIR C Rahul Insurance:MEDICAIDPoli SCOTTDOB: Community cy Number: [id number] [id number] Repository Date:2018-01-24 02/24/2018 Tertiary NOT GIVENUNK [place] Insurance:SELF PAY [facility] Number: Effective Repository Date:2018-02-24 02/14/2018 BALBIR C Primary BALBIR C [place] [id number] Insurance:MEDICAIDPoli SCOTTDOB: [facility] cy Number: [id number] Hospital - [place], [id number] [place]ository [place] [address]Fkp: Date:2018-02-07 () 02/14/2018 Secondary NOT GIVENUNK [place] Insurance:SELF PAY [facility] Number: Effective Repository Date:2018-02-14 02/07/2018 BALBIR C Primary BALBIR C [place] [id number] Insurance:ANTHEMPolicy SCOTTDOB: [facility] Number: [id number] Hospital - [place], [id number] [place]ository [place] [address]Sok: ve Date:5717-63-37JS [address] () [address]XF: 02/07/2018 Secondary NOT GIVENUNK Rah[place] Insurance:SELF PAY [facility] Number: Effective Repository Date:2018-02-07 01/24/2018 BALBIR C Primary BALBIR C [place] [id number] Insurance:ANTHEMPolicy SCOTTDOB: [facility] Number: [id number] Hospital - [place], [id number] [place]ository [place] [address]Tps: ve Date:9743-89-95[address] () [address]LE: 01/24/2018 Secondary NOT GIVENUNK [place] Insurance:SELF PAY [facility] Number: Effective Repository Date:2018-01-24 01/09/2018 BALBIR Primary BALBIR [facility] SCOTTDOB: Insurance:ANTHEMPolicy SCOTTDOB: Hospital Number: [id number] [facility] [id number] [facility], ve Date: [place], [place] [address]D[place]: [place] [address] () 12/27/2017 BALBIR C Primary BALBIR C Rahul [id number] Insurance:ANTHEMPolicy SCOTTDOB: [facility] Number: [id number] Hospital - [place], [id number] [place]ository [place] [address]Mlv: ve Date:4148-75-15[address]F [address]FXDHEXT, [place] () [address]IU: 12/27/2017 Secondary NOT GIVENUNK [place] Insurance:SELF PAY [facility] Number: Effective Repository Date:2017-12-27 12/27/2017 BALBIR Primary BALBIR [place] [id number] Insurance:ANTHEMPolicy SCOTTDOB: [facility] Number: [id number] Hospital - [place], [id number] Repository [place] [address]Zxs: ve Date:1512-23-99[address]AISOWJAD[address]NA [address]AZ[address] () [address]XQ: 12/27/2017 Secondary NOT GIVENUNK [place] Insurance:SELF PAY [facility] Number: Effective Repository Date:2017-12-27 12/27/2017 BALBIR Primary BALBIR Opal [id number] Insurance:ANTHEMPolicy SCOTTDOB: [facility] Number: [id number] [id number] [place]ository [place] [address]Xqg: ve Date:9843-22-42TK [address], [place] () [address]SF: 12/27/2017 Secondary NOT GIVENUNK Rahul Insurance:SELF PAY [facility] Number: Effective Repository Date:2017-12-27 12/13/2017 BALBIR Primary BALBIR Opal [id number] CR Insurance:ANTHEMPolicbasia RUIZDOB: [address] Number: [id number] Hospital [address]Gow: (330 [id number] Repository [phone] () ve Date:3477-74-15VF [address] [place] [address]CZ: 12/13/2017 Secondary NOT GIVENUNK Opal Insurance:SELF PAY [facility] Number: Effective Repository Date:2017-12-13 12/13/2017 BALBIR Primary BALBIR Opal [id number] CR Insurance:ANTHEMPolicy SARADOB: [address] Number: [id number] Hospital [address]Wek: (883) [id number] Repository [phone] () ve Date:8740-63-55IQ [address] [place] [address] 244[address]RL: 12/13/2017 Secondary NOT GIVENUNK Opal Insurance:SELF PAY [facility] Number: Effective Repository Date:2017-12-13 08/17/2017 BALBIR Primary BALBIR Ata Garnett SARADOB: Insurance:TIFFANY RUIZDOB: [facility] [id number] Repository [address] [place] [address] Number: 257[facility] [id number]: ([phone] [id number] [place] [phone] () Date:Plan Name: 08/03/2017 BALBIR Primary Insurance:SELF BALBIR SULEIMAN [id number] CR PAY [address] Number: Effective Hospital [address]Svd: ([phone]) Date: Repository [phone] (HP) 07/22/2017 BALBIR Primary BALBIR C Ata Garnett SARADOB: Insurance:ANTHCECY RUIZDOB: [facility] [id number] Repository [address] [place] [address] Number: 257[place], [address]Ccy: (330) [id number] T[place] [id number] [phone] (HP) Date:Plan Name: 07/22/2017 BALBIR Primary BALBIR Ata Garnett MAGGIB: Insurance:TIFFANY RUIZB: [facility] [id number] [employer] [id number] [facility] [address] INPAT[address] Repository [address] [place] [address] [facility]: 257[facility], [address]Ids: (330) [id number] [place] [phone] (HP) Date:Plan Name:B2
[2018-03-24 17:55] LABS: Protein, Urine (Random) 27.4 mg/dL (<11.9); Protein:Creat Ratio 134 mg/g CRE (0-200)
== END ==
PROVIDERS: Visit Provider Nurse Practitioner Women's Health
DX: R80.9 Proteinuria, unspecified (principal)
CPT/HCPCS: 82570; 84156

== ENCOUNTER → 2018-04-27 11:20 | Outpatient (CLI) | payer MEDICAID, SELFPAY ==
[2018-04-27 12:23] LABS: Absolute Neutrophil Count 11.4 X10^3/uL (2.0-7.7); Basophil# 0.03 X10^3/uL; Basophil% 0.2 % (0-1); Eosinophil# 0.65 X10^3/uL; Eosinophils% 4.5 % (0-5); Hematocrit 35.6 % (37-47); Lymphocyte % 11.7 % (19-41); Mean Corp Hgb Conc 33.7 g/gl (32-36); Mean Corpuscular Hgb 30.4 pg (27.0-32.0); Mean Corpuscular Volume 90.1 fL (81-99); Mean Platelet Vol. 10.7 fl (6.2-12.0); Monocyte# 0.74 X10^3/uL; Monocyte% 5.1 % (0-10); Neutrophil # 11.38 X10^3/uL (2.7-7.7); Platelet Count 235 K/mm3 (150-450); RBC Distribution Width CV 12.9 % (11.6-14.6); Red Blood Count 3.95 M/mm3 (4.2-5.4); White Blood Count 14.6 K/mm3 (4.4-11.0)
[2018-04-27 12:24] LABS: Glucose Challenge Gest 1H 50g 110 mg/dL (70-140)
[2018-04-27 12:29] LABS: POSITIVE COUNT NO; POSITIVE DIFFERENTIAL NO; POSITIVE MORPHOLOGY NO
--- OUTSIDE RECORDS SUMMARY | 2018-04-27 14:43 | XMS RPT_ITS | Clinical Summary ---
:1995 Author Organization [facility], [facility] Address [address] [place], [place] [address] Phone Care Team Providers Name Role Phone Phyllis Glass MD Unavailable Conditions or Problems Problem Problem Onset Status Entry Provider Comment Standard Annotate Name Code Date Date Description Supervision O09.91 Active Phyllis Marie Supervision yobany high risk (ICD-10-CM 10/03 10/03 Quan of high risk 03/16/18PC , ) , Adelinehusb first unspecified, and santa trimester first trimester Subchorioni 067904230 Active Phyllis Marie Disorder of c hematoma, (SNOMED 10/03 10/03 Quan placenta antepartum, CT) unspecified trimester 54350423 Active Phyllis Marie with (SNOMED 10/03 10/[address]) MD marie viability History of 732888129 Active Phyllis Marie History of recommend (SNOMED 10/03 10/03 Quan premature [address]) labor hydroxyprog esterone injections and cervical length checks in Supervision 91575363 Inactive Phyllis Marie High risk yobany PC high risk (SNOMED 10/03 10/03 Marcanthamrit Adelinehusb , CT) and santa first trimester Medications Medication Instructions Start Date Stop Generic Name NDC Provider Date 68188523271 Phyllis Marie VITAMIN 27-0.8 VIT-FE Quan KHAN MG TABS FUMARATE-FA Medications Administered No information available. Allergies, Adverse Reactions, Alerts Observed no known allergies at Results Date Name Value Unit Range Flag Description Office Visit: OB Initial REMI No Fall risk assessment PAP SMEAR Normal General categories [Interpretation] of Cervical or vaginal smear or scraping by Cyto stain ORALTOBACUSE Never Tobacco smoking status NHIS SMOK STATUS Never smoker Tobacco use [facility] Lab Report: CT/NG [facility] BY PCR GONO PCR Negative Negative Neisseria gonorrhoeae DNA [ Presence] in Unspecified specimen by Probe and target amplification method CHLAMYD PCR Negative Negative Chlamydia trachomatis DNA [ Presence] in Urine by Probe and target amplification method Microbiology: Culture, Urine AlisonZ-GE-unk . GE use only - for LinkLogic import when terms are not otherwise specified Office Visit: OB Routine MEDS REVIEW Done Documentation of current medications ( procedure) GLUCOSE, URN N glucose, urine, semiquantitative PROTEIN, URN N Albumin [Presence] in Urine Plan of Care Type Date Detail Appointment 11:20 AM Phyllis Glass MD, [address], [address] Floor, [place], [address], Appointment 08:10 AM Phyllis Glass MD, [address], [address] Floor, [place], [address], Pending order *CBC with Differential Pending order *TS Type and Screen Pending order *Rubella Screen Pending order *HIV antibody Pending order *HEBSAG - Hep B Surface Antigen 6510 Pending order *RPR Pending order *GC/Chlamydia Pending order *CUUID - Urine ASIYA Culture - Identificatn Procedures Code Procedure Name Date Entry Date CPT-95226 US uterus,limited CPT-OBROU Routine OB Visit (Global) 0184-1 *CBC with Differential 0037-3 *TS Type and Screen 8013-5 *Rubella Screen 0197-1 *HIV antibody 0433-1 *HEBSAG - Hep B Surface Antigen 6510 44219-8 *RPR 0752-1 *GC/Chlamydia 0032-2 *CUUID - Urine ASIYA Culture - Identificatn Vital Signs Date Name Value Unit Description BMI (Body Mass Index) 27.63 kg/m2 Body Mass Index [Ratio] BP Diastolic 75 mm[Hg] blood pressure, diastolic - 8462-4 BP Systolic 120 mm[Hg] blood pressure, systolic - 8480-6 Weight Measured 156.0 [lb_av] weight E&M - 3141-9 Height 63 [in_us] height E&M - 8302-2 Height 160.02 cm height in centimeters E&M Weight Measured 71.58 kg weight in kilograms E&M
--- OUTSIDE RECORDS SUMMARY | 2018-04-27 14:43 | XMS RPT_ITS | Clinical Summary ---
:1995 Author Organization [facility], [facility] Address [address] [place], [place] [address] Phone Care Team Providers Name Role Phone Phyllis Glass MD Unavailable Conditions or Problems Problem Problem Onset Status Entry Provider Comment Standard Annotate Name Code Date Date Description Supervision 76662291 Active Phyllis Marie High risk yobany high risk (SNOMED 10/03 10/03 Marcanthony 03/16/18PC , CT) MD Man first and santa trimester Subchorioni 797937677 Active Phyllis Marie Disorder of c hematoma, (SNOMED 10/03 10/03 Marcanthamrit placenta antepartum, CT) unspecified trimester 27877383 Active Phyllis Marie with (SNOMED 10/03 10/[address]) MD marie viability History of 893197023 Active Phyllis Marie History of recommend (SNOMED 10/03 10/03 Quan premature [address]) labor hydroxyprog esterone injections and cervical length checks in Supervision 03984772 Inactive Phyllis Marie High risk yobany PC high risk (SNOMED 10/03 10/03 Marcanthony Adelinehusb , CT) and santa first trimester Medications Medication Instructions Start Date Stop Generic Name NDC Provider Date [id number] Phyllis Marie VITAMIN 27-0.8 VIT-FE Quan KHAN MG TABS FUMARATE-FA Medications Administered No information available. Allergies, Adverse Reactions, Alerts Observed no known allergies at Results Date Name Value Unit Range Flag Description Office Visit: OB Initial REMI Meng Fall risk assessment PAP SMEAR Normal General categories [Interpretation] of Cervical or vaginal smear or scraping by Cyto stain ORALTOBACUSE Never Tobacco smoking status NHIS SMOK STATUS Never smoker Tobacco use [facility] Lab Report: CT/NG [facility] BY PCR GONO PCR Negative Negative Neisseria gonorrhoeae DNA [ Presence] in Unspecified specimen by Probe and target amplification method CHLAMYD PCR Negative Negative Chlamydia trachomatis DNA [ Presence] in Urine by Probe and target amplification method Microbiology: Culture, Urine ZZ-GE-unk . GE use only - for LinkLogic import when terms are not otherwise specified Office Visit: OB Routine MEDS REVIEW Done Documentation of current medications ( procedure) GLUCOSE, URN N glucose, urine, semiquantitative PROTEIN, URN N Albumin [Presence] in Urine Plan of Care Type Date Detail Appointment 11:20 AM Phyllis Glass MD, [address] [facility], Third Floor, [place], [address], Appointment 08:10 AM Phyllis Glass MD, [address], [address] Floor, [place], [address], Pending order *CBC with Differential Pending order *TS Type and Screen Pending order *Rubella Screen Pending order *HIV antibody Pending order *HEBSAG - Hep B Surface Antigen 6510 Pending order *RPR Pending order *GC/Chlamydia Pending order *CUUID - Urine ASIYA Culture - Identificatn Procedures Code Procedure Name Date Entry Date CPT-25660 US uterus,limited CPT-OBROU Routine OB Visit (Global) 0184-1 *CBC with Differential 0037-3 *TS Type and Screen 8013-5 *Rubella Screen 0197-1 *HIV antibody 0433-1 *HEBSAG - Hep B Surface Antigen 6510 27210-7 *RPR 0752-1 *GC/Chlamydia 0032-2 *CUUID - Urine [...]
--- OUTSIDE RECORDS SUMMARY | 2018-04-27 14:43 | XMS RPT_ITS | Clinical Summary ---
:1995 Author Organization [facility], [facility] Address [address] [place], [place] [address] Phone Care Team Providers Name Role Phone Phyllis Glass MD Unavailable Conditions or Problems Problem Problem Onset Status Entry Provider Comment Standard Annotate Name Code Date Date Description Incomplete 884998318 Active Phyllis Marie Incomplete (SNOMED 10/19 10/[address]) Supervision 25136077 Active Phyllis Marie High risk yobany high risk (SNOMED 10/03 10/03 Marcanthony 03/16/18PC , CT) MD Man first and santa trimester Subchorioni 558520207 Active Phyllis Marie Disorder of c hematoma, (SNOMED 10/03 10/03 Quan placenta antepartum, CT) unspecified trimester 32991227 Active Phyllis Marie with (SNOMED 10/03 10/[address]) MD marie viability History of 332900586 Active Phyllis Marie History of recommend (SNOMED 10/03 10/03 Quan premature [address]) labor hydroxyprog esterone injections and cervical length checks in Supervision 03928233 Inactive Phyllis Marie High risk yobany PC high risk (SNOMED 10/03 10/03 Marcanthony Adelinehusb , CT) first trimester Medications Medication Instructions Start Stop Generic Name NDC Provider Date Date PERCOCET 5-325 1-2 tablet every / OXYCODONE-ACET 70425461611 Phyllis Marie MG TABS 4 hours as 24 AMINOPHEN Quan KHAN needed CYTOTEC 200 4 tablets orally / MISOPROSTOL 82319162791 Phyllis Marie MCG TABS 24 Quan KHAN [id number] Phyllis Marie VITAMIN 27-0.8 08 VIT-FE Quan KHAN MG TABS FUMARATE-FA Medications Administered No information available. Allergies, Adverse Reactions, Alerts Observed no known allergies at Results Date Name Value Unit Range Flag Description Office Visit: OB Initial FALLNEERAJ No Fall risk assessment PAP SMEAR Normal General categories [Interpretation] of Cervical or vaginal smear or scraping by Cyto stain ORALTOBACUSE Never Tobacco smoking status NHIS SMOK STATUS Never smoker Tobacco use [facility] Lab Report: CT/NG [facility] BY PCR [...] not otherwise specified Office Visit: OB Routine GLUCOSE, URN N glucose, urine, semiquantitative PROTEIN, URN N Albumin [Presence] in Urine MEDS REVIEW Done Documentation of current medications ( procedure) Plan of Care Type Date Detail Appointment 02:00 PM Phyllis Glass MD, [address], [address] Floor, [place], [address], Appointment 09:30 AM Phyllis Glass MD, [address], [address] Floor, [place], [address], Appointment 08:10 AM Phyllis Glass MD, [address], [address] Floor, [place], [address], Pending order *CBC with Differential Pending order *TS Type and Screen Pending order *Rubella Screen Pending order *HIV antibody Pending order *HEBSAG - Hep B Surface Antigen 6510 Pending order *RPR Pending order *GC/Chlamydia Pending order *CUUID - Urine ASIYA Culture - Identificatn Procedures Code Procedure Name Date Entry Date CPT-57650 US uterus,limited CPT-50114 US uterus,limited CPT-OBROU Routine OB Visit (Global) 0184-1 *CBC with Differential 0037-3 *TS Type and Screen 8013-5 *Rubella Screen 0197-1 *HIV antibody 0433-1 *HEBSAG - Hep B Surface Antigen 6510 08929-8 *RPR 0752-1 *GC/Chlamydia 0032-2 *CUUID - Urine ASIYA Culture - Identificatn Vital Signs Date Name Value Unit Description BMI (Body Mass Index) 27.38 kg/m2 Body Mass Index [Ratio] BP Diastolic 82 mm[Hg] blood pressure, diastolic - 8462-4 BP Systolic 125 mm[Hg] blood pressure, systolic - 8480-6 Weight Measured 154.6 [lb_av] weight E&M - 3141-9 Height 63 [in_us] height E&M - 8302-2 Height 160.02 cm height in centimeters E&M Weight Measured 71.58 kg weight in kilograms E&M
--- OUTSIDE RECORDS SUMMARY | 2018-04-27 14:43 | XMS RPT_ITS | Clinical Summary ---
:[address] [facility], [facility] Address [address] [place], [place] [address] Phone Care Team Providers Name Role Phone Phyllis Glass MD Unavailable Conditions or Problems Problem Problem Onset Status Entry Provider Comment Standard Annotate Name Code Date Date Description Incomplete 697310464 Active Phyllis Marie Incomplete (SNOMED 10/19 10/[address]) Supervision 52157309 Active Phyllis Marie High risk yobany high risk (SNOMED 10/03 10/03 Marcanthony 03/16/18PC , CT) MD Man first and santa trimester Subchorioni 020991427 Active Phyllis Marie Disorder of c hematoma, (SNOMED 10/03 10/03 Quan placenta antepartum, CT) unspecified trimester 73403604 Active Phyllis Marie with (SNOMED 10/03 10/[address]) MD marie viability History of 583084927 Active Phyllis Marie History of recommend (SNOMED 10/03 10/03 Quan premature [address]) labor hydroxyprog esterone injections and cervical length checks in Supervision 58748927 Inactive Phyllis Marie High risk yobany PC high risk (SNOMED 10/03 10/03 Marcanthony Adelinehusb , CT) first trimester Medications Medication Instructions Start Stop Generic Name NDC Provider Date Date XULAN 150-35 apply one / NORELGESTROMIN 07648346818 Phyllis Marie MCG/24HR PTWK transdermally 27 -ETH ESTRADIOL Quan KHAN weekly PERCOCET 5-325 1-2 tablet every / OXYCODONE-ACET 68709494894 Phyllis E MG TABS 4 hours as 24 AMINOPHEN Quan KHAN needed CYTOTEC 200 4 tablets orally / MISOPROSTOL 28107650853 Phyllis Ольга MCG TABS 24 Quan KHAN 64315104348 Phyllis Ольга VITAMIN 27-0.8 08 VIT-FE Quan KHAN MG TABS FUMARATE-FA Medications Administered No information available. Allergies, Adverse Reactions, Alerts Observed No Known Drug Allergies at Results Date Name Value Unit Range Flag Description Office Visit: OB Initial FALLRSKASSES No Fall risk assessment PAP SMEAR Normal General categories [Interpretation] of Cervical or vaginal smear or scraping by Cyto stain Lab Report: CT/NG [facility] BY PCR GONO PCR Negative Negative Neisseria gonorrhoeae DNA [ Presence] in Unspecified specimen by Probe and target amplification method CHLAMYD PCR Negative Negative Chlamydia trachomatis DNA [ Presence] in Urine by Probe and target amplification method Microbiology: Culture, Urine ZAlison-GE-unk . GE use only - for LinkLogic import when terms are not otherwise specified Office Visit: OB Routine GLUCOSE, URN N glucose, urine, semiquantitative PROTEIN, URN N Albumin [Presence] in Urine Office Visit: Follow up ORALTOBACUSE Never Tobacco smoking status NHIS SMOK STATUS Never smoker Tobacco use [facility] MEDS REVIEW Done Documentation of current medications (procedure) Plan of Care Type Date Detail Pending order *CBC with Differential Pending order *TS Type and Screen Pending order *Rubella Screen Pending order *HIV antibody Pending order *HEBSAG - Hep B Surface Antigen 6510 Pending order *RPR Pending order *GC/Chlamydia Pending order *CUUID - Urine ASIYA Culture - Identificatn Procedures Code Procedure Name Date Entry Date CPT-08685 US uterus,limited CPT-21879 US uterus,limited CPT-31544 US uterus,limited CPT-OBROU Routine OB Visit (Global) 0184-1 *CBC with Differential 0037-3 *TS Type and Screen 8013-5 *Rubella Screen 0197-1 *HIV antibody 0433-1 *HEBSAG - Hep B Surface Antigen 6510 65634-3 *RPR 0752-1 *GC/Chlamydia 0032-2 *CUUID - Urine ASIYA Culture - Identificatn Vital Signs Date Name Value Unit Description BMI (Body Mass Index) 27.28 kg/m2 Body Mass Index [Ratio] BP Diastolic 81 mm[Hg] blood pressure, diastolic - 8462-4 BP Systolic 119 mm[Hg] blood pressure, systolic - 8480-6 Height 63 [in_us] height E&M - 8302-2 Height 160.02 cm height in centimeters E&M Weight Measured 154 [lb_av] weight E&M - 3141-9 Weight Measured 69.85 kg weight in kilograms E&M
--- OUTSIDE RECORDS SUMMARY | 2018-04-27 14:43 | XMS RPT_ITS | Clinical Summary ---
:1995 Author Organization [facility], [facility] Address [address] [place] [address] Phone Care Team Providers Name Role Phone Phyllis Glass MD Unavailable Conditions or Problems Problem Name Problem Onset Status Entry Provider Comment Standard Annotate Code Date Date Description Subchorionic 566147416 Active Phyllis Rolon Disorder of hematoma, (SNOMED 10/03 10/03 Marcjuan luis placenta antepartum, CT) unspecified trimester 92796006 Active Phyllis Rolon with (SNOMED 10/03 10/[address]) viability History of 449045888 Active Phyllis Rolon History of recommend 17 (SNOMED 10/03 10/03 Quan premature hydroxyproge labor CT) labor sterone injections and cervical length checks in Supervision 37647636 Active Phyllis Rolon High risk yobany PC high risk (SNOMED 10/03 10/03 Marcanthony Adelinehusba , CT) MD bailey santa first trimester Medications Medication Instructions Start Date Stop Generic Name NDC Provider Date 91027707858 Phyllis Rolon VITAMIN 27-0.8 VIT-FE Quan KHAN MG TABS FUMARATE-FA Medications Administered No information available. Allergies, Adverse Reactions, Alerts Observed no known allergies at Results Date Name Value Unit Range Flag Description Office Visit: OB Initial MEDS REVIEW Done Documentation of current medications (procedure) FALLRSADITI No Fall risk assessment PAP SMEAR Normal General categories [Interpretation] of Cervical or vaginal smear or scraping by Cyto stain ORALTOBACUSE Never Tobacco smoking status NHIS SMOK STATUS Never smoker Tobacco use [facility] Lab Report: CT/NG [facility] BY PCR GONO PCR Negative Negative Neisseria gonorrhoeae DNA [ Presence] in Unspecified specimen by Probe and target amplification method CHLAMYD PCR Negative Negative Chlamydia trachomatis DNA [ Presence] in Urine by Probe and target amplification method Microbiology: Culture, Urine ZZ-GE-unk . GE use only - for LinkLogic import when terms are not otherwise specified Plan of Care Type Date Detail Appointment 11:20 AM Phyllis Glass MD, [address], [address] Floor, [place], [address], Pending order *CBC with Differential Pending order *TS Type and Screen Pending order *Rubella Screen Pending order *HIV antibody Pending order *HEBSAG - Hep B Surface Antigen 6510 Pending order *RPR Pending order *GC/Chlamydia Pending order *CUUID - Urine ASIYA Culture - Identificatn Procedures Code Procedure Name Date Entry Date CPT-OBROU Routine OB Visit (Global) 0184-1 *CBC with Differential 0037-3 *TS Type and Screen 8013-5 *Rubella Screen 0197-1 *HIV antibody 0433-1 *HEBSAG - Hep B Surface Antigen 6510 14468-3 *RPR 0752-1 *GC/Chlamydia 0032-2 *CUUID - Urine ASIYA Culture - Identificatn Vital Signs Date Name Value Unit Description BMI (Body Mass Index) 27.95 kg/m2 Body Mass Index [Ratio] BP Diastolic 70 mm[Hg] blood pressure, diastolic - 8462-4 BP Systolic 127 mm[Hg] blood pressure, systolic - 8480-6 Height 63 [in_us] height E&M - 8302-2 Height 160.02 cm height in centimeters E&M Weight Measured 157.8 [lb_av] weight E&M - 3141-9 Weight Measured 71.58 kg weight in kilograms E&M
--- OUTSIDE RECORDS SUMMARY | 2018-04-27 14:43 | XMS RPT_ITS | Clinical Summary ---
:1995 Author Organization [facility], [facility] Address [address] [place] [address] Phone Care Team Providers Name Role Phone Phyllis Glass MD Unavailable Conditions or Problems Problem Name Problem Onset Status Entry Provider Comment Standard Annotate Code Date Date Description Subchorionic 146503983 Active Phyllis Rolon Disorder of hematoma, (SNOMED 10/03 10/03 Marcjuan luis placenta antepartum, CT) unspecified trimester 88234220 Active Phyllis Rolon with (SNOMED 10/03 10/[address]) viability History of 862599993 Active Phyllis Rolon History of recommend 17 (SNOMED 10/03 10/03 Quan premature hydroxyproge labor CT) labor sterone injections and cervical length checks in Supervision 25026087 Active Phyllis Rolon High risk yobany PC high risk (SNOMED 10/03 10/03 Marcanthony Adelinehusba , CT) MD bailey santa first trimester Medications Medication Instructions Start Date Stop Generic Name NDC Provider Date 23091287411 Phyllis Rolon VITAMIN 27-0.8 VIT-FE Quan KHAN [...] Urine by Probe and target amplification method Plan of Care Type Date Detail Appointment 11:20 AM Phyllis Glass MD, [address] [facility], [place], [address], Pending order *CBC with Differential Pending order [...] *HEBSAG - Hep B Surface Antigen 6510 11562-8 *RPR 0752-1 *GC/Chlamydia 0032-2 *CUUID - Urine [...]
--- OUTSIDE RECORDS SUMMARY | 2018-04-27 14:43 | XMS RPT_ITS | Clinical Summary ---
:1995 Author Organization [facility], [facility] Address [address] [place] [address] Phone Care Team Providers Name Role Phone Phyllis Glass MD Unavailable Conditions or Problems Problem Name Problem Onset Status Entry Provider Comment Standard Annotate Code Date Date Description Subchorionic 778453367 Active Phyllis Rolon Disorder of hematoma, (SNOMED 10/03 10/03 Marcjuan luis placenta antepartum, CT) unspecified trimester 63203590 Active Phyllis Rolon with (SNOMED 10/03 10/[address]) viability History of 917194213 Active Phyllis Rolon History of recommend 17 (SNOMED 10/03 10/03 Quan premature hydroxyproge labor CT) labor sterone injections and cervical length checks in Supervision 07850309 Active Phyllis Rolon High risk yobany PC high risk (SNOMED 10/03 10/03 Marcanthony Adelinehusba , CT) MD bailey santa first trimester Medications Medication Instructions Start Date Stop Generic Name NDC Provider Date [id number] Phyllis Rolon VITAMIN 27-0.8 VIT-FE Quan KHAN [...] SMOK STATUS Never smoker Tobacco use [facility] Plan of Care Type Date Detail Appointment 03:10 PM Phyllis Glass MD, [address], [address] Floor, [place], [address], Appointment 11:20 AM Phyllis Glass MD, [address], [address] Floor, [place], [address], Pending order *CBC with Differential Pending order *TS Type and Screen Pending order *Rubella Screen Pending order *HIV antibody Pending order *HEBSAG - Hep B Surface Antigen 6510 Pending order *RPR Pending order *GC/Chlamydia Pending order *CUUID - Urine ASIYA Culture - Identificatn Procedures Code Procedure Name Date Entry Date CPT-OBROU Routine OB Visit (Global) Vital Signs Date Name Value Unit Description [...]
--- OUTSIDE RECORDS SUMMARY | 2018-04-27 14:43 | XMS RPT_ITS | Clinical Summary ---
:1995 Author Organization [facility], [facility] Address [address] [place], [place] [address] Phone Care Team Providers Name Role Phone Phyllis Glass MD Unavailable Conditions or Problems Problem Name Problem Onset Status Entry Provider Comment Standard Annotate Code Date Date Description Subchorionic 757127665 Active Phyllis Rolon Disorder of hematoma, (SNOMED 10/03 10/03 Marcjuan luis placenta antepartum, CT) unspecified trimester 59474482 Active Phyllis Rolon with (SNOMED 10/03 10/[address]) viability History of 217495095 Active Phyllis Rolon History of recommend 17 (SNOMED 10/03 10/03 Quan premature hydroxyproge labor CT) labor sterone injections and cervical length checks in Supervision O09.91 Active Phyllis Rolon Supervision yobany PC high risk (ICD-10-CM 10/03 10/03 Quan of high risk Adelinehusba , ) , nd santa first unspecified, trimester first trimester Medications Medication Instructions Start Date Stop Generic Name NDC Provider Date [id number] Phyllis Rolon VITAMIN 27-0.8 VIT-FE Quan KHAN MG TABS FUMARATE-FA Medications Administered No information available. Allergies, Adverse Reactions, Alerts Observed no known allergies at Results Date Name Value Unit Range Flag Description Office Visit: OB Initial MEDS REVIEW Done Documentation of current medications (procedure) FALLRSKARAJEEV No Fall risk assessment PAP SMEAR Normal General categories [Interpretation] of Cervical or vaginal smear or scraping by Cyto stain ORALTOBACUSE Never Tobacco smoking status NHIS SMOK STATUS Never smoker Tobacco use [facility] Plan of Care Type Date Detail Appointment 03:10 PM Phyllis Glass MD, [address], [address] Floor, [place], [address], Appointment 11:20 AM Phyllis Glass MD, [address], [address], [place], [address], Pending order *CBC with Differential Pending order [...]
--- OUTSIDE RECORDS SUMMARY | 2018-04-27 14:43 | XMS RPT_ITS | Clinical Summary ---
:1995 Author Organization [facility], [facility] Address [address] [place], [place] [address] Phone Care Team Providers Name Role Phone Phyllis Glass MD Unavailable Conditions or Problems Problem Problem Onset Status Entry Provider Comment Standard Annotate Name Code Date Date Description Incomplete 528790367 Active Phyllis Marie Incomplete (SNOMED 10/19 10/[address]) Supervision 98535447 Active Phyllis Marie High risk yobany high risk (SNOMED 10/03 10/03 Marcanthony 03/16/18PC , CT) MD Man first and santa trimester Subchorioni 241403890 Active Phyllis Marie Disorder of c hematoma, (SNOMED 10/03 10/03 Quan placenta antepartum, CT) unspecified trimester 82452864 Active Phyllis Marie with (SNOMED 10/03 10/[address]) MD marie viability History of 630935273 Active Phyllis Marie History of recommend (SNOMED 10/03 10/03 Quan premature [address]) labor hydroxyprog esterone injections and cervical length checks in Supervision 05609057 Inactive Phyllis Marie High risk yobany PC high risk (SNOMED 10/03 10/03 Marcanthony Adelinehusb , CT) first trimester Medications Medication Instructions Start Stop Generic Name NDC Provider Date Date XULAN 150-35 apply one / NORELGESTROMIN [id number] Phyllis Marie MCG/24HR PTWK transdermally 27 -ETH ESTRADIOL Quan KHAN weekly PERCOCET 5-325 1-2 tablet every / OXYCODONE-ACET [id number] Phyllis Ольга MG TABS 4 hours as 24 AMINOPHEN Quan KHAN needed CYTOTEC 200 4 tablets orally / MISOPROSTOL 22553456206 Phyllis Marie MCG TABS 24 Quan KHAN [id number] Phylils Marie VITAMIN 27-0.8 08 VIT-FE Quan KHAN [...] smoker Tobacco use [facility] MEDS REVIEW Done Documentation of current medications (procedure) Plan of Care Type Date Detail Appointment 09:30 AM Phyllis Glass MD, [address], [place], [address], Pending order *CBC with Differential Pending order *TS Type and Screen Pending order *Rubella Screen Pending order *HIV antibody Pending order *HEBSAG - Hep B Surface Antigen 6510 Pending order *RPR Pending order *GC/Chlamydia Pending order *CUUID - Urine ASIYA Culture - Identificatn Procedures Code Procedure Name Date Entry Date CPT-27199 US uterus,limited CPT-14834 US uterus,limited CPT-01691 US uterus,limited CPT-OBROU Routine OB Visit (Global) 0184-1 *CBC with Differential 0037-3 *TS Type and Screen 8013-5 *Rubella Screen 0197-1 *HIV antibody 0433-1 *HEBSAG - Hep B Surface Antigen 6510 35527-0 *RPR 0752-1 *GC/Chlamydia 0032-2 *CUUID - Urine [...]
--- OUTSIDE RECORDS SUMMARY | 2018-04-27 14:43 | XMS RPT_ITS | Clinical Summary ---
:1995 Author Organization [facility], [facility] Address [address] [place], [place] [address] Phone Care Team Providers Name Role Phone Phyllis Glass MD Unavailable Conditions or Problems Problem Problem Onset Status Entry Provider Comment Standard Annotate Name Code Date Date Description Supervision O09.91 Active Phyllis Marie Supervision yobany high risk (ICD-10-CM 10/03 10/03 Quan of high risk 03/16/18PC , ) , Adelinehusb first unspecified, and santa trimester first trimester Subchorioni 846115591 Active Phyllis Marie Disorder of c hematoma, (SNOMED 10/03 10/03 Quan placenta antepartum, CT) unspecified trimester 26493961 Active Phyllis Marie with (SNOMED 10/03 10/[address]) MD marie viability History of 075444797 Active Phyllis Marie History of recommend (SNOMED 10/03 10/03 Quan premature [address]) labor hydroxyprog esterone injections and cervical length checks in Supervision 42136799 Inactive Phyllis Marie High risk yobany PC high risk (SNOMED 10/03 10/03 Marcanthamrit Adelinehusb , CT) and santa first trimester Medications Medication Instructions Start Date Stop Generic Name NDC Provider Date [id number] Phyllis Marie VITAMIN 27-0.8 VIT-FE Quan KHAN [...] NHIS SMOK STATUS Never smoker Tobacco use [facility] Lab Report: CT/NG [facility] BY [...] MD, [address], [place], [address], Appointment 08:10 AM Phyllis Glass MD, [address], [place], [address], Pending order *CBC with Differential Pending order *TS Type and Screen Pending order *Rubella Screen Pending order *HIV antibody Pending order *HEBSAG - Hep B Surface Antigen 6510 Pending order *RPR Pending order *GC/Chlamydia Pending order *CUUID - Urine ASIYA Culture - Identificatn Procedures Code Procedure Name Date Entry Date CPT-74823 US uterus,limited CPT-OBROU Routine OB Visit (Global) 0184-1 *CBC with Differential 0037-3 *TS Type and Screen 8013-5 *Rubella Screen 0197-1 *HIV antibody 0433-1 *HEBSAG - Hep B Surface Antigen 6510 85798-7 *RPR 0752-1 *GC/Chlamydia 0032-2 *CUUID - Urine [...]
--- OUTSIDE RECORDS SUMMARY | 2018-04-27 14:44 | XMS RPT_ITS ---
:1995 Author Organization OHIP Support Name Relationship Address Phone STANISLAV RUIZ Unavailable [address] + [place] [address] UE Unavailable Unavailable Unavailable SCHFLER Unavailable [address] + [place] [address] STANISLAV RUIZ Unavailable [address] + [place] [address] SCHFLER Unavailable [address] + [place] [address] STANISLAV RUIZ Unavailable [address] + [place] [address] SCHFLER Unavailable [address] + [place] [address] STANISLAV RUIZ Unavailable [address] + [place] [address] SCHFLER Unavailable [address] + [place] [address] STANISLAV RUIZ Unavailable [address] + [place] [address] SCHFLER Unavailable [address] + [place] [address] STANISLAV RUIZ Unavailable [address] + [place] [address] SCHFLER Unavailable [address] + [place] [address] STANISLAV RUIZ Unavailable [address] + [place] [address] SCHFLER Unavailable [address] + [place] [address] STANISLAV RUIZ Unavailable [address] + [place] [address] SCHFLER Unavailable [address] + [place] [address] STANISLAV RUIZ Unavailable [address] + [place] [address] SCHFLER Unavailable [address] + [place] [address] STANISLAV RUIZ Unavailable [address] + [place] [address] BALBIR RUIZ Unavailable [address] + [place] [address] STANISLAV RUIZ Unavailable Unavailable + SCHFLER Unavailable [address] + [place] [address] STANISLAV RUIZ Unavailable [address] + [place] [address] SCHFLER Unavailable [address] + [place] [address] STANISLAV RUIZ Unavailable [address] + [place] [address] SCHFLER Unavailable [address] + [place] [address] STANISLAV RUIZ Unavailable [address] + [place] [address] SCHFLER Unavailable [address] + [place] [address] STANISLAV RUIZ Unavailable [address] + [place] [address] SCHFLER Unavailable [address] + [place] [address] STANISLAV RUIZ Unavailable [address] + [place] [address] NOT GIVEN Unavailable Unavailable Unavailable STANISLAV RUIZ Unavailable [address] + [place], [place] [id number] STANISLAV RUIZ Unavailable [address] + [place] [address] U Unavailable Unavailable Unavailable NOT GIVEN Unavailable Unavailable Unavailable NOT GIVEN Unavailable Unavailable Unavailable STANISLAV RUIZ Unavailable [address] + [place], [place] [id number] NOT GIVEN Unavailable Unavailable Unavailable STANISLAV RUIZ Unavailable [address] + [place], [place] [id number] Care Team Providers Name Role Phone JEFFREY GARVEY Consulting Unavailable [facility] Primary Care Unavailable [facility] Attending Unavailable [facility] Admitting Unavailable PROVIDER, UNKNOWN Consulting Unavailable PETERSON, VALENTINA DO Admitting Unavailable PETERSON, VALENTINA DO Attending Unavailable PETERSON, VALENTINA DO Primary Care Unavailable GURU, JEFFREY Nichols Consulting Unavailable PROVIDER, UNKNOWN Consulting Unavailable PETERSON, VALENTINA DO Admitting Unavailable PETERSON, VALENTINA DO Attending Unavailable PETESRON, VALENTINA DO Primary Care Unavailable GARVEY, JEFFREY J Consulting Unavailable PROVIDER, UNKNOWN Consulting Unavailable PETERSON, VALENTINA DO Admitting Unavailable PETERSON, VALENTINA DO Attending Unavailable PETERSON, VALENTINA DO Primary Care Unavailable GURU, JEFFREY J Consulting Unavailable PROVIDER, UNKNOWN Consulting Unavailable MATHIEU ANDERSON Attending Unavailable PHYLLIS BYRNE Referring Unavailable NO PRIMARY CARE, Primary Care Unavailable MarcanthonyPhyllis Attending Unavailable Primay Care Physicia, No Primary Care Unavailable MarcanthonyPhyllis Attending Unavailable Marcanthony, Phyllis Attending Unavailable Marcanthony, Phyllis Referring Unavailable Marcanthony, Phyllis Attending Unavailable Marcanthony, Phyllis Attending Unavailable MarcanthonyPhyllis Referring Unavailable Primay Care Physicia, No Primary Care Unavailable [place]own[place]Kingy Attending Unavailable Primay Care Physicia, No Referring Unavailable MarcanthonyPhyllis Attending Unavailable Primay Care Physicia, No Referring Unavailable MarcanthonyPhyllis Attending Unavailable Primay Care Physicia, No Referring Unavailable Primay Care Physicia, No Primary Care Unavailable MarcanthonyPhyllis Attending Unavailable Primay Care Physicia, No Referring Unavailable Primay Care Physicia, No Primary Care Unavailable MarcanthonyPhyllis Attending Unavailable Primay Care Physicia, No Primary Care Unavailable [place], Leda Attending Unavailable Primay Care Physicia, No Referring Unavailable Primay Care Physicia, No Primary Care Unavailable John, Leda Attending Unavailable Primay Care Physicia, No Primary Care Unavailable [place], Leda Referring Unavailable JohnLeda Attending Unavailable Primay Care Physicia, No Referring Unavailable Primay Care Physicia, No Primary Care Unavailable Marcanthony, Phyllis Attending Unavailable Primay Care Physicia, No Referring Unavailable Primay Care Physicia, No Primary Care Unavailable Marcanthony, Phyllis Attending Unavailable Marcanthony, Phyllis Referring Unavailable Primay Care Physicia, No Primary Care Unavailable PROBLEMS PROBLEMS DATE TYPE CONDITION / CODE ATTENDING STATUS SOURCE 04/18/2018 Unknown O09.299 - Quan, Active Rahul [facility] with [facility] other poor Repository reproductive or obstetric history, unspecified trimester / O09.299(ICD-10) 04/18/2018 Unknown Z36.9 - Encounter Quan, Active [facility] for [facility] screening, Hospital unspecified / Repository Z36.9(ICD-10) 04/18/2018 Unknown O09.92 - Quan, Active Rahul [facility] high risk Hospital , Repository unspecified, second trimester / O09.92(ICD-10) 04/18/2018 Unknown O09.212 - Quan, Active [place] [facility] with Hospital history of Repository pre-term labor, second trimester / O09.212(ICD-10) 04/18/2018 Unknown Z3A.26 - 26 weeks Quan Active Rahul gestation of [facility] / Hospital Z3A.26(ICD-10) Repository 04/13/2018 Unknown O09.91 - JohnLeda chavarria Active Rahul Supervision of [facility] high risk Hospital , Repository unspecified, first trimester / O09.91(ICD-10) 04/13/2018 Unknown O09.211 - [place]alLeda Active Rahul Supervision of [facility] with Hospital history of Repository pre-term labor, first trimester / O09.211(ICD-10) 04/13/2018 Unknown Z3A.25 - 25 weeks [place], Leda Active Rahul gestation of [facility] / Hospital Z3A.25(ICD-10) Repository 04/13/2018 Unknown L03.317 - John, Leda Active [place] Cellulitis of [facility] buttock / Hospital L03.317(ICD-10) Repository 03/27/2018 Unknown R80.9 - John, Leda Active Rahul Proteinuria, Community unspecified / Hospital R80.9(ICD-10) Repository 03/24/2018 Unknown Z3A.22 - 22 weeks John, Leda Active [place] gestation of [facility] / Hospital Z3A.22(ICD-10) Repository 03/09/2018 Unknown Z3A.18 - 18 weeks Quan, Active Rahul [facility] of [facility] / Hospital Z3A.18(ICD-10) Repository 12/14/2017 Unknown Z34.90 - Encounter Quan Active Rahul for [facility] normal , Hospital unspecified, Repository unspecified trimester / Z34.90(ICD-10) 08/06/2017 Unknown SUPERVISION OF Quan Active [place] [facility]ISK [facility] , [facility], Hospital FIRST TRIMESTER / Repository O09.91(ICD-10) 08/06/2017 Unknown WEEKS OF GESTATION Quan, Active Rahul OF NOT [facility] SPECIFIED / Hospital Z3A.00(ICD-10) Repository 07/22/2017 Principle Encounter for VALENTINA WINKLER Active Ata Garnett Diagnosis supervision of [facility] , first Repository trimester / Z3481(ICD-10) PROCEDURES PROCEDURES No Procedure Records FoundRESULTS RESULTS 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 [place] [address] [phone] VISITDate of Service: 04/18/18MR#: [id number] Acct: [id number]: BALBIR RUIZ Rep #: [id number]: 1995 Provider: Phyllis Byrne MDAge/Sex: 23/F [facility] [place]Status: SignedIntakeVital Signs04/18/18 Height 5 ft 3 in04/18/18 Weight: 188 lb 4 oz04/18/18 Body Mass Index (BMI) 33.307 Blood Pressure 120/66IntakeVisit Reasons: 26 weeksInterpreter Required: NoAccompanied by: husbandIs patient in pain?: NoAllergiesNo Known Allergies Allergy (Verified 04/18/18 11:06)Medicationsprenatal vitamin,calcium,minerals-iron- folic acid tablet 1 tab PO QDAY 12/13/17 [HistoryConfirmed 04/18/18]hydroxyprogesterone (PF)( preserving) 250 mg/mL (1 mL) IM oil 250 mg IM QWEEK 02/07/18[ History Confirmed 07/24/18]Last Menstral Period: 10/16/17Zika: Zika virus screening: NegativeBreastfeeding: NoPFSHPFSHSocial HistorySmoking Status: Former smokersecond hand exposure: Noalcohol intake: neversubstance use type: does not usewhat type of physical activity do you participate in: noneadditional social history: CodyPregancy HistoryGravida 3 Elective abortionsHx Para 1 Spontaneous abortions 1Past PregnanciesDel. DatName GA/WeeksOutcome Route Bth WeigInfant GLabor LgAnesthesDel LocaProviderFOBe ht en ia tn04/28/16Adeline 34 live birNSVD 5lbs 9 oFemale none millersbth - pre unces ysxwdarKCA67 weeks: Details: BALBIR RUIZ is a 23 year old who presents for routine OB visit.OB VisitEDD CalculatorEstimated Delivery Date 07/23/18Based on LMP (certain) Current WG 26w 2dFetal Number 1Expected Delivery Route/PlanSVDPrenatal Specific Issue/Plansflu vaccine declinedminichart given: yestdap vaccine: []rhogam: NALARC form signed: declineslabor support person: Codypain management: no epiduralcut cord/dad catch: cord onlybreastfeeding: yesPP control planned: []special requests: []Initial Weight: Not RecordedDate Weight BP Urine PrFHR FuHt Pres MoCTX DilationFetal StVisit NoProviderCommentsE ot v teGA G Effaclucose edVisit NotesVisit Date: 04/18/18no vb lof good fm n oregular ctx tdap today cbc gct Phyllis Byrne MD on 04/18/18Visit Date: 04/13/18Work in for painful swollen lump upper left buttocks after progesterone injection 2 nightsago. States less tender and red today. This was not her first injection.FEDERICO Allen on 04/13/18Visit Date: Doing well. No VB, LOF. FEDERICO Allen on 03/24/18Visit Date: 02/24/18needs to have second set of sequential screen drawn. no vb lof cramping. anatomy scanordered Phyllis Byrne MD on 02/24/18Visit Date: 01/24/18Doing well. Nausea improved. Denies CTX, LOF, VB FEDERICO Allen on 01/24/18Visit Date: 12/27/17no vb cramping doing well Phyllis Byrne MD on 01/04/18ACOGFirst TrimesterFirst Trimester: Desire for [...] acute distressGIInspection: normal to inspectionPalpation: soft , domdcithrKvnkiloNRLCL7Xhzwlt Urine Glucose Negative Last Edit by Linda Narayanan on 04/18/18 11:13Office Urine Protein Negative Last Edit by Linda Narayanan on 04/18/18 11:13Assessment AND PlanProblems1. screening encounter Z36.9NT on 01/09/18 WNL2. History of miscarriage, currently O09.2993. Supervision of high risk in second trimester O09.92PRR EDD1 PC Lashay Cody4. High risk due to history of labor in second trimester O09.616M4J3 ALVAREZ 07/23/18 gender surprise PC Lashay Mevlin plan progesterone axjpyqdpbk04-29 weekMakena information/order faxed 01/24/18 EM5. 26 weeks gestation of Z3A.26Pregancy HistoryGravida 3 Elective abortionsHx Para 1 Spontaneous abortions 1Hx # Term Pregnancies Ectopic pregnanciesHx # Pregnancies Multiple births# of living childrenPast PregnanciesDel. Date Name GA/Weeks Outcome Route Bth Weight Infant Gen Labor Lgth Anesthesia DelLocatn Provider FOB22Qkhiavs21xpdl - wfbkyyjAFQK9gln 9 ouncesFemale nonemillersburgPlanOrders placed: see belowACOG trimester education reviewed and updated.see problem list details for updated plan management information.GA appropriate handout given.OrdersOrders:CodingLevel of Care CodeOff vis,est,level 3DiagnosesAntenatal screening encounter Z36.9History of miscarriage, currently O09.299Supervision of high risk in second trimester O09.92Trimester: second trimesterHigh risk due to history of labor in second trimester O09.212Trimester: second yrfgmsbov42 weeks gestation of Z3A.26Weeks of gestation: 26 weeks04/18/18 1115 <Electronically signed by Phyllis Byrne MD>Date Phyllis Byrne MDCosigner Signature: Date (if applicable)CC: 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 Observed: 04/13/2018 Status: F Source: RAHUL REPORT 2:32 PM [facility] [address] [place] [phone] VISITDate of Service: 04/13/18MR#: [id number] Acct: [id number]: BALBIR RUIZ Rep #: [id number]: 1995 Provider: JOEL Levy/Sex: 23/F [facility] [place].BWCStatus: SignedIntakeVital Signs04/13/18 Height 5 ft 3 in04/13/18 Weight: 186 lb 4 oz04/13/18 Body Mass Index (BMI) 33.007 Blood Pressure 131/79IntakeVisit Reasons: Knot where progesterone injectionInterpreter Required: NoAllergiesNo Known Allergies Allergy (Verified 04/13/18 14:00)Medicationsprenatal vitamin,calcium,iaqmgdkq-wduw-cbbxn acid tablet 1 tab PO QDAY 12/13/17 [HistoryConfirmed 04/13/18]hydroxyprogesterone (PF)( preserving) 250 mg/mL (1 mL) IM oil 250 mg IM QWEEK 02/07/18[History Confirmed 04/13/18]Last Menstral Period: 10/16/17PFSHPFSHSocial HistorySmoking Status: Former smokersecond hand exposure: Noalcohol intake: neversubstance use type: does not usewhat type of physical activity do you participate in: noneadditional social history: CodyPregancy HistoryGravida 3 Elective abortionsHx Para 1 Spontaneous abortions 1Past PregnanciesDel. DatName GA/WeeksOutcome Route [facility] WeigInfant GLaswedish medical center [facility] LgAnesthesD LocaProviderFOBe en ri tn04/28/16Adeline 34 live birNSVD 5lbs 9 oFemale none millersbth - pre unces urgtermHPIKnot where progesterone injection:Details: BALBIR RUIZ is a 23 year old who presents for routine OB visit.OB VisitEDD CalculatorEstimated Delivery Date 07/23/18Based on LMP (certain) 10/16/17Current WG 25w 4dFetal Number 1Expected Delivery Route/PlanSVDPrenatal Specific Issue/ Plansflu vaccine declinedminichart given: yestdap vaccine: []rhogam: NALARC form signed: declineslabor support person: Codypain management: no epiduralcut cord/dad catch: cord onlybreastfeeding: yesPP control planned: []special requests: [] Initial Weight: Not RecordedDate Weight BP Urine PrFHR FuHt Pres MoCTX DilationFetal StVisit NoProviderCommentsE ot v teGA G Effaclucose edVisit NotesVisit Date: 04/13/18Work in for painful swollen lump upper left buttocks after progesterone injection 2 nightsago. States less tender and red today. This was not her first injection.FEDERICO Allen on 04/13/18Visit Date: 03/24/18Doing well. No VB, LOF. FEDERICO Allen on 03/24/18Visit Date: 02/24/18needs to have second set of sequential screen drawn. no vb lof cramping. anatomy scanordered Phyllis Byrne MD on 02/24/18Visit Date: Doing well. Nausea improved. Denies CTX, LOF, VB FEDERICO Allen on Visit Date: 12/27/17no vb cramping doing well Phyllis Byrne MD on ACOGFirst TrimesterFirst Trimester: Desire for [...] (PCR) Negative (Negative) 08/03/17Details: HIV:Urine Culture:Sequential Screen:NIPT Screen:ExamGUOther: Upper outer left buttocks slight erythema, warm to touch, 3cm in size. Soft, nodefinitive mass. May be just below large muscle mass. Slightly tender, again states improvedfrom yesterday.LddsmgnJNLUR9Iyldvm Urine Glucose Negative Last Edit by Linda Narayanan on 04/13/18 14:05Office Urine Protein Negative Last Edit by Linda Narayanan on 04/13/18 14:05Assessment AND PlanProblems1. High risk due to history of labor in first trimester O.872U0C5 ALVAREZ 07/23/18 gender surprise PC Lashay Melvin plan progesterone yxwyzeyvzw10-53 weekMakena information/order faxed 01/24/18 EM2. Supervision of high risk in first trimester O.PRR EDD1 PC Lashay Cody3. 25 weeks gestation of Z3A.254. Cellulitis of buttock L03.317PlanMinimal cellulitis and improving.Warm compressesCall if worsens, fever occursAvoid this site for future injectionsInstruct on IM injection in upper thigh/muscle and avoid tattoo area/ inkRTO 04/20 routine OB and next progesterone injectionOrdersOrders:CodingLevel of Care CodeOff vis,est,level 3DiagnosesHigh risk due to history of labor in first trimester OTrimester: first trimesterSupervision of high risk in first trimester OTrimester: first gdridqjfc93 weeks gestation of Z3A.25Cellulitis of buttock L03.317Site of cellulitis: wuffrrq43/19 /18 1432 <Electronically signed by Leda CABALLERO>Date Leda CORTEZCCosigner Signature: Date (if applicable)CC: PROTEIN+CREATININE Collected: Status: F Source: RAHUL FERNNADEZ,URINE 03/24/2018 5:06 PM [facility] TYPE CODE TESTS RESULT OUT OF RANGE REFERENCE UNITS LAB L501.1200 Normal NO RANGE EST. mg/dL UR 204.00 CREAT LAB L501.1930 High <11.9 mg/dL 27.4 PROTEIN,UR.R AN. LAB L501.1940 Normal 0-200 mg/g CRE 134 PROT:CRE RATIO Performed By: #### L501.0900 ####[facility] [address] 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, [place] [phone] VISITDate of Service: 03/24/18MR#: [id number] Acct: [id number]: BALBIR RUIZ Rep #: [id number]: 1995 Provider: JOEL Levy/Sex: [facility]atus: SignedIntakeVital Signs03/24/18 Height 5 ft 3 in03/24/18 Weight: 177 lb 8 oz03/24/18 Body Mass Index (BMI) 31.406 Blood Pressure 131/72IntakeVisit Reasons: 22 weeksChief Complaint: est obInterpreter Required: NoIs patient in pain?: NoAllergiesNo Known Allergies Allergy ( Verified 03/24/18 09:47)Medicationsprenatal vitamin,calcium,puftqklp-eyqi-orpva acid tablet 1 tab PO QDAY 12/13/17 [...] 9 oFemale none millersbth - pre unces udzgkczSCK82 weeks: Details: BALBIR RUIZ is a 22 [...] no vb lof cramping. anatomy scanordered Phyllis Byrne MD on 02/24/18Visit Date: Doing well. Nausea improved. Denies CTX, LOF, VB FEDERICO Allen on Visit Date: 12/27/17no vb cramping doing well Phyllis Byrne MD on ACOGFirst TrimesterFirst Trimester: Desire for [...] cooperativeNutritional Appearance: well nourishedGIPalpation: soft, nontender, other (gravid)ZorbibaLXHBD3Yvckbi Urine Glucose Negative Last Edit by Nora Lamas on 03/24/18 09:50Office Urine Protein 1+ Last Edit by Nora Lamas on 03/24/18 09: 50Assessment AND PlanProblems1. Supervision of high risk in first trimester O09.91PRR EDD1 PC Lashay Cody2. High risk due to history of labor in first trimester O09.140P3D7 ALVAREZ 07/23/18 gender surprise PC Farson Melvin plan progesterone tnnwmotowt48-18 weekMakena information/order faxed EM3. History of miscarriage, [...] of Z3A. 1002 <Electronically signed by Leda CORTEZC>Date Leda Lopez NP-CCosigner Signature: Date (if applicable)CC: DOWNTIME REPORT Observed: 03/16/2018 Status: F Source: RAHUL 12:18 PM [facility] [id number] [place], [place] [address]Klywffpj ReportMR#: [id number] Acct: [id number]: BALBIR RUIZ Rep #: [id number]: 1995 22 From: Leandro LewisPCP: Care Physician, No Primary Status: REG Yen patient was seen during an EMR downtime February 27, 2018 - March 06, 2018. This patient mayhave a combination of paper and electronic documentation or all paper documentation. Alldocumentation is viewable within the e-chart portion of NoteVault for each patient visit. OB ANATOMY SCAN Observed: 03/03/2018 Status: F Source: RAHUL 7:57 AM [facility]ITALIm[facility] [id number] [place] [address]QD Anatomy ScanMR#: [id number] Acct: [id number]: BALBIR RUIZ Rep #: [id number]: 1995 F 22 From: Jim Moreno MDPCP: Care Physician, No Primary Status: REG CLIStudy: OB Anatomy Scan Date of Exam: 03/03/18Exam# [id number] Ordering Dr: Phyllis Byrne MDSTUDY: SECOND AND THIRD TRIMESTER OBSTETRICAL ULTRASOUNDREASON [...] upper extremities. Normal bilateral lowerextremities. ORDER #: [id number] US/OB Anatomy ScanIMPRESSION:Single live intrauterine at 20 weeks, 1 day by ultrasound withEDD of 07/20/2018. Heart rate of 140 bpm. 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 [place] [address] [phone] VISITDate of Service: 02/24/18MR#: [id number] Acct: [id number]: BALBIR RUIZ Rep #: [id number]: 1995 Provider: Phyllis Byrne MDAge/Sex: [facility] [place]WCStatus: SignedIntakeVital Signs02/24/18 Height 5 ft 3 in02/24/18 Weight: 167 lb 8 oz02/24/18 Body Mass Index (BMI) 29.706 Blood Pressure 124/82IntakeVisit Reasons: OB - 18 WEEKSIs patient in pain?: NoAllergiesNo Known Allergies Allergy (Verified 02/14/18 12:18) Medicationsprenatal vitamin,calcium,kawqcbdz-aypm-vobck acid tablet 1 tab PO QDAY 12/13/17 [...] no vb lof cramping. anatomy scanordered Phyllis Byrne MD on 02/24/18Visit Date: 01/24/18Doing well. Nausea improved. Denies CTX, LOF, VB FEDERICO Allen on 01/24/18Visit Date: 12/27/17no vb cramping doing well Phyllis Byrne MD on 01/04/18ACOGFirst TrimesterFirst Trimester: Desire for [...] acute distressGIInspection: normal to inspectionPalpation: soft , nuwdtmpelEupbfvoSWCPU5Amcyud Urine Glucose Negative Last Edit by Silvina Harley on 02/24/18 11:10Office Urine Protein Negative Last Edit by Silvina Harley on 02/24/18 11:10Assessment AND PlanProblems1. Supervision of high risk in first trimester O09.91PRR EDD1 PC Lashay Cody2. High risk due to history of labor in first trimester O09.644U6J2 ALVAREZ 07/23/18 gender surprise PC Lashay Melvin plan progesterone pounbmjmgf98 -36 weekMakena information/order faxed 01/24/18 EM3. History of miscarriage, currently O09.2994. screening encounter Z36.9NT on 01/09/18 WNL5. 18 weeks gestation of Z3A.18PlanOrders placed: anatomy scanACOG trimester education reviewed and updated.see problem list details for updated plan management information.GA appropriate handout given.OrdersOrders:CodingLevel of Care CodeOB RoutineDiagnosesSupervision of high risk in first trimester O09.Trimester: first trimesterHigh risk due to history of labor in first trimester O09.211Trimester: first trimesterHistory of miscarriage, currently O09.299Antenatal screening encounter Z36.918 weeks gestation of Z3A. 1114 <Electronically signed by Phyllis Byrne MD>Date Phyllis Byrne [facility] – WAURIKAosigner Signature: Date (if applicable)CC: OFFICE VISIT REPORT Observed: 02/22/2018 Status: F Source: RAHUL 2:41 PM [facility] [address]TDWSYI VISITDate of Service: 02/14/18MR#: [id number] Acct: [id number]: BALBIR RUIZ Rep #: [id number]: 1995 Provider: Phyllis Byrne MDAge/Sex: [facility]tatus: SignedIntakeVital Signs02/14/18 Height 5 ft 3 in02/14/18 Weight: 164 lb 2 oz02/14/18 Body Mass Index (BMI) 29.005 Blood Pressure 119/79IntakeVisit Reasons: INJECTIONInterpreter Required: NoAllergiesNo Known Allergies Allergy (Verified 02/14/18 12:18)Medicationsprenatal vitamin,calcium,wcvpcspa-gzoh-mvcaw acid tablet 1 tab PO QDAY 12/13/17 [HistoryConfirmed 02/14/18]hydroxyprogesterone (PF)( preserving) 250 mg/mL (1 mL) IM oil 250 mg IM QWEEK 02/07/18[History Confirmed 02/14/18]Post menopausal: NoPatient : YesNursing NoteHeather presented for a Cherelle injection. Patient here with sister to be educated onadministering Alston injection. Sister has given IM injections in [...] givenoffice contact if any questions should arise. Cherelle injection administer by sister in leftgluteal muscle. 1 ml was administer. Lot #[id number], expiration date 2019. Patient will nowbe getting these injections in the home setting.02/22/18 1441 <Electronically signed by Phyllis Byrne MD>Date Phyllis Byrne MDCosigner Signature: Date (if applicable)CC: OFFICE VISIT REPORT Observed: 02/15/2018 Status: F Source: RAHUL 4:50 AM [facility] [address]MYHEYQ VISITDate of Service: 02/07/18MR#: [id number] Acct: [id number]: BALBIR RUIZ Rep #: [id number]: 1995 Provider: Phyllis Byrne MDAge/Sex: 22/F [facility] [place].BWCStatus: SignedIntakeVital Signs02/07/18 Height 5 ft 3 in02/07/18 Weight: 165 lb 2 oz02/07/18 Body Mass Index (BMI) 29.205 Blood Pressure 120/64IntakeVisit Reasons: PROGESTERONE INJECTION -16 WEEKSInterpreter Required: NoAllergiesNo Known Allergies Allergy (Verified 02/14/18 12:18)Medicationsprenatal vitamin,calcium,uduoeioj-wxri-cqqtf acid tablet 1 tab PO QDAY 12/13/17 [HistoryConfirmed 02/14/18]hydroxyprogesterone (PF)( preserving) 250 mg/mL (1 mL) IM oil 250 mg IM QWEEK 02/07/18[History Confirmed 02/14/18]Post menopausal: NoPatient : YesOffice ProceduresInjectionsProcedure performed by: Linda Narayanan number: [id number]: AMAG PharmaceuticalsExpire date: 03/25/20Dose of injection: 1 mLSite of injection: right gluteal IMMedication Given: YesAdditional Details: Patient tolerated Alston injection well.02/15/18 0450 <Electronically signed by Phyllis Byrne MD> Date Phyllis Byrne [facility] Signature: Date (if applicable)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, [place] [phone] VISITDate of Service: 01/24/18MR#: [id number] Acct: [id number]: BALBIR RUIZ Rep #: [id number]: 1995 Provider: JOEL Levy/Sex: 22/F [facility] [place]Status: SignedIntakeVital Signs01/24/18 Height 5 ft 3 in01/24/18 Weight: 162 lb 8 oz01/24/18 Body Mass Index (BMI) 28.805 Blood Pressure 128/74IntakeVisit Reasons: 14 weeksInterpreter Required: NoAccompanied by: husbandIs patient in pain?: NoAllergiesNo Known Allergies Allergy (Verified 10/13 08:49)Medicationsprenatal vitamin,calcium,dxqpxgih-xkvr-ioytx acid tablet 1 tab PO QDAY 12/13/17 [HistoryConfirmed 01/24/18]Last Menstral Period: 10/16/17Zika: Zika virus screening: NegativeBreastfeeding: NoPFSHPFSHSocial HistorySmoking Status: Former smokersecond hand exposure: Noalcohol intake: neversubstance use type : does not usewhat type of physical activity do you participate in: noneadditional social history: CodyPregancy HistoryGravida 3 Elective abortionsHx Para 1 Spontaneous abortions 1Past PregnanciesDel. DatName GA/WeeksOutcome Route [facility] WeigInfant GLabor LgAnesthesDel LocaProviderFOBe ht en th ia tn04/28/16Adeline 34 live birNSVD 5lbs 9 oFemale none millersbth - pre unces vforhycYZE86 weeks:Details: BALBIR RUIZ is a 22 year [...] Date: 12/27/17no vb cramping doing well Phyllis Byrne MD on 01/04/18ACOGFirst TrimesterFirst Trimester: Desire for [...] Negative (Negative) 08/03/17Details: HIV:Urine Culture:Sequential Screen:NIPT Screen: IpyckhuGCTUN5Styjjt Urine Glucose Negative Last Edit by Linda Narayanan on 01/24/18 08: 55Office Urine Protein Negative Last Edit by Linda Narayanan on 01/24/18 08: 55Assessment AND PlanProblems1. High risk due to history of labor in first trimester O09.955A6J5 ALVAREZ 07/23/18 PC Lashay Melvin plan progesterone injections 16-36 weeks2. Supervision of high risk in first trimester O09.91PRR EDD1 PC Farson Cody3. History of miscarriage, currently O09.2994. screening [...] of labor in first trimester O09.Trimester: first trimesterSupervision of high risk in first trimester O09.Trimester: first trimesterHistory of miscarriage, currently O09.299Antenatal screening encounter Z36.914 weeks gestation of Z3A. 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, [place] [phone] VISITDate of Service: 12/27/17MR#: [id number] Acct: [id number]: BALBIR RUIZ Rep #: [id number]: 1995 Provider: Phyllis Byrne MDAge/Sex: 22/F [facility]Status: SignedIntakeVital Signs12/27/17 Height 5 ft 3 in12/27/17 Weight: 162 lb 8 oz12/27/17 Body Mass Index (BMI) 28.804 Blood Pressure 137/79IntakeVisit Reasons: (OB)Rewind Operator Required: NoAccompanied by: husbandIs patient in pain?: [...] Spontaneous abortions 1Past PregnanciesDel. DatName GA/WeeksOutcome Route [facility] WeigIndignity health [facility] - [facility] GLaswedish medical center cherry [facility] LgAnestheLinton Hospital and Medical [facility] LocaProviderFOBe ht en ia tn04/28/16Adeline 34 live [...] Date: 12/27/17no vb cramping doing well Phyllis Byrne MD on 01/04/18ACOGFirst TrimesterFirst Trimester: Desire for [...] (PCR) Cancelled 12/13/17Details: HIV:Urine Culture:Sequential Screen: NIPT Screen:IpkwuccPORGU6Xodfho Urine Glucose Negative Last Edit by Linda Narayanan on 12/27/17 08:39Office Urine Protein Negative Last Edit by Linda Narayanan on 12/27/17 08:39Assessment AND PlanProblems1. High risk due to history of labor in first trimester O09.273J9Q7 ALVAREZ 07/23/18 PC Lashay Melvin plan progesterone injections 16-36 weeks2. History of miscarriage, currently O09.2993. Supervision of high risk in first trimester O09.91 EDD1 PC Farson CodyPlanOrders placed: noneACOG trimester education reviewed and updated.see problem list details for updated plan management information.GA appropriate handout given.OrdersOrders:CodingLevel of Care CodeOB RoutineDiagnosesHigh risk due to history of labor in first trimester O09.211Trimester: first trimesterHistory of miscarriage, currently O09.299Supervision of high risk in first trimester O09.Trimester: first ddfarbqqd59/11/18 0621 <Electronically signed by Phyllis Byrne MD>Date Phyllis Byrne MDCosigner Signature: Date (if applicable)CC: CBC W/DIFF, AUTOMATED Collected: 12/27/2017 Status: F Source: RAHUL 8:58 AM [facility] TYPE CODE TESTS RESULT OUT OF [...] Lymph 1.78 Performed By: #### L100.0100, B101.7450 ####[facility] [address] [place], [place], [phone] TYPE AND SCREEN Collected: 12/27/2017 Status: F Source: [place] 8:58 AM [facility] Order Comment: Reason for Type AND Screen/Red Cells: TYPE CODE TESTS RESULT OUT OF RANGE REFERENCE UNITS LAB B10.0800 Normal BLOOD A TYPE GEL POSITIVE LAB B100.4000 Normal Antibody NEGATIVE Screen Performed By: #### L100.0100, B101.7450 ####[facility] [address] [place], [place], [phone] RUBELLA IGG Collected: 12/27/2017 Status: F Source: [place] 8:58 AM [facility] TYPE CODE TESTS RESULT OUT OF RANGE REFERENCE UNITS LAB L509.4000 Normal IU/mL Rubella 26.3 IgG Result Comment: Antibody results Interpretation of Immune Status < 5 IU/ml Presumed Non-immune 5 - < 10 IU/ml Equivocal > or = 10 IU/ml Presumed Immune Performed By: #### L509.4000, L3890.6005 ####[facility] [address] [place], [address] #### L3100.0390 ####[facility] (refer to report for specific site)refer to report for address and phone number HIV - [facility] Collected: 12/27/2017 Status: F Source: [place] 8:58 AM [facility] TYPE CODE TESTS RESULT OUT OF RANGE REFERENCE UNITS LAB L3890.6005 Normal Nonreactive HIV - [facility] Non-Reactive Performed By: #### L509.4000, L3890.6005 ####[facility] [address] [place], [address] #### L3100.0390 ####[facility] (refer to report for specific site)refer to report for address and phone number HEPATITIS B SURFACE Collected: 12/27/2017 Status: F Source: RAHUL AG 8:58 AM [facility] TYPE CODE TESTS RESULT OUT OF RANGE REFERENCE UNITS LAB L3100.0400 Normal Negative HB Negative SURF AG Result Comment: Performed at: [address] [id number] Director: Costa Hawkins PhD, Phone: [phone] Performed By: #### L509.4000, L3890.6005 ####[facility] [address] [place], [address] #### L3100.0390 ####[facility] (refer to report for specific site)refer to report for address and phone number RAPID PLASMIN REAGIN Collected: 12/27/2017 Status: F Source: RAHUL (RPR) 8:58 AM [facility] TYPE CODE TESTS RESULT OUT OF REFERENCE UNITS RANGE LAB L700.5000 Normal NONREACTIVE RPR NONREACTIVE Performed By: #### L700.5000 ####[facility] [address] 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 [place] [address] [phone] VISITDate of Service: 12/13/17MR#: [id number] Acct: [id number]: BALBIR RUIZ Rep #: [id number]: 1995 Provider: Phyllis Byrne MDAge/Sex: 22/F [facility]: [facility] [place].BWCStatus: SignedIntakeVital Signs12/13/17 Height 5 ft 3 in12/13/17 Weight: 160 lb 4 oz12/13/17 Body Mass Index (BMI) 28.303/ Blood Pressure 121/66IntakeVisit Reasons: NEW OB LMP 10/16/17Interpreter Required: NoAccompanied by: Family / OtherIs patient in pain?: NoAllergiesNo Known Allergies Allergy (Verified 01/19/15 06:30)Medicationsprenatal vitamin,calcium,kfreulpj-vvox-sidav acid tablet 1 tab PO QDAY 12/13/17 [HistoryConfirmed 12/13/17]Last Menstral Period: 10/16/17PFSHPFSHSocial HistorySmoking Status: Former smokersecond hand exposure: Noalcohol intake: neversubstance use type: does not usewhat type of physical activity do you participate in: noneadditional social history: CodyPregancy HistoryGravida 2 Elective abortionsHx Para 1 Spontaneous abortionsPast PregnanciesDel. DatName GA/WeeksOutcome Route [facility] CenterAnestheLinton Hospital and [facility] Center LocaProviderFOBe ht en ia tn04/28/16Adeline 34 live birNSVD 5lbs 9 oFemale none [facility] - pre unces urgtermHPINEW OB LMP 10/16/17:Details: [...] Sensitized, Pulmonary (e.g.,TB,Asthma), Seasonalallergies, Drug/latex allergies/reactions, Breast, Stenographer Print Shop surgery, Operations/hospitalizations,Anesthetic complications, History of abnormal pap, [...] to history of labor in first trimester O09.813M9P5 ALVAREZ 07/23/18 PC Farson Melvin plan progesterone injections 16-36 weeksPlanPatient oriented [...] of labor in first trimester O09.211Trimester: first owwoorgyu54/20/182109 <Electronically signed by Phyllis Byrne MD&gt ;Date Phyllis Byrne [facility] – WAURIKAosigner Signature: Date (if applicable)CC: Observed: 12/13/2017 Status: F Source: RAHUL CULTURE, URINE 5:43 PM [facility] Urine CultureCulture exhibits no growth. Performed By: #### M100.0650 ####[facility] [address] [place], [address] CT/NG [facility] BY PCR Collected: 08/03/2017 Status: F Source: RAHUL 10:10 PM [facility] TYPE CODE TESTS RESULT OUT OF RANGE REFERENCE UNITS LAB L8200.2100 Normal Negative Negative Chlam Trac PCR LAB L8200.2200 Normal Negative NG Negative by PCR Performed By: #### L8200.2000 ####[facility] [address] [place], [address] Observed: 08/03/2017 Status: F Source: RAHUL CULTURE, URINE 10:10 PM [facility] Urine CultureBelow infection level. ORGANISM 1: Mixed Gram Positive OrganismsColony Count 1000-10,000MIX CULTURE Mixed contaminants. Submit a new specimen if indicated. Performed By: #### M100.0650 ####[facility] [address] [place], [address] ALLERGIES ALLERGIES DATE TYPE / CODE NAME / CODE REACTION SEVERITY SOURCE 04/18/2018 Drug No Known Unknown [place] Allergy/388513140(S Allergies/F[address] [facility] [facility]) [address](RXNORM) Hospital Repository 01/19/2015 Drug No Known [place] Allergy/951305866(S Allergies/F[address]) 32605(RXNORM) Hospital Repository Miscellaneous No Known Drug Moderate Ata [place] Allergy/330657715(S Allergies (Severity [facility]) Modifier) Hospital (Qualifier Repository Value) ENCOUNTERS ENCOUNTERS ADMIT/DISCHARGE ACCOUNT ADMITTING ENCOUNTER LOCATION SOURCE NUMBER CLASS 04/27/2018 [id number] Ambulatory [facility] ing:LAB Repository 04/18/2018/04/18/20 [id number] Ambulatory BMSBuilding:B [place] [facility] Repository 04/13/2018/04/13/20 [id number] Ambulatory BMSBuilding:B [place] 18 [facility] Repository 03/24/2018 [id number] Ambulatory [facility] ing:LABSPEC Repository 03/24/2018/03/24/20 [id number] Ambulatory BMSBuilding:B [place] 18 [facility] Repository 03/03/2018 [id number] Ambulatory [facility] ing:OPUS Repository 02/24/2018/02/25/20 [id number] Ambulatory BMSBuilding:B [place] 18 [facility] Repository 02/14/2018/02/15/20 [id number] Ambulatory BMSBuilding:B [place] 18 [place] Repository 02/07/2018/02/08/20 [id number] Ambulatory BMSBuilding:B [place] 18 [place] Repository 01/24/2018/01/25/20 [id number] Ambulatory BMSBuilding:B [place] 18 [facility] Repository 01/09/2018/01/10/20 [id number] Ambulatory Building:[address] Repository 12/27/2017 [id number] Ambulatory [facility] ing:LAB Repository 12/27/2017 [id number] Ambulatory BMSBuilding:B [place] Repository 12/27/2017/12/28/19 [id number] Ambulatory BMSBuilding:B [place] 18 [facility] Repository 12/13/2017 [id number] Ambulatory [facility] ing:LABSPEC Repository 12/13/2017/12/14/19 [id number] Ambulatory BMSBuilding:B [place] 18 [place] Repository 08/17/[id number] [facility] Ambulatory [facility] Repository 08/03/2017 [id number] [facility] ing:LABSPEC Repository 07/22/2017 [id number] [facility] Repository 07/22/[id number] [facility] Inpatient [facility] Repository 06/20/2017/06/20/20 [id number] ATA, Ambulatory [address] Repository PAYERS PAYERS ENCOUNTER GUARANTOR PAYER SUBSCRIBER SOURCE 04/27/2018 BALBIR C Primary BALBIR C [place] [id number] Insurance:FUAD DOWNS: [facility] [id number] Number: Repository [place] [address]Dqp: [id number] Date:4842-33-63SB BOX () [address] [place] [address]IU: 04/27/2018 Secondary NOT GIVENUNK [place] Insurance:SELF PAY [facility] Number: Effective Repository Date:2018-04-27 04/18/2018 BALBIR C Primary BALBIR C [place] [id number] Insurance:FUAD DOWNS: [facility] [id number] Health [facility] Number: Repository [place] [address]Jdj: [id number] Date:9764-22-54AB BOX (HP) [address] [address]HE: 04/18/2018 Secondary NOT GIVENUNK [place] Insurance:SELF PAY [facility] Number: Effective Repository Date:2018-04-18 04/13/2018 BALBIR C Primary BALBIR C [place] [id number] Insurance:FUAD TAYB: [facility] [id number] Health [facility] Number: Repository [place] [address]Axc: [id number] Date:8537-03-85RT BOX (HP) [address] MUSA [address]XD: 04/13/2018 Secondary NOT GIVENUNK Rahul Insurance:SELF PAY [facility] Number: Effective Repository Date:2018-04-13 03/24/2018 BALBIR C Primary BALBIR C [place] [id number] Insurance:FUAD TAYB: [facility] [id number] Health [facility] Number: [place]ository [place] [address]Mmb: [id number] Date:4133-05-07SX BOX () [address] [address]AN: 03/24/2018 Secondary NOT GIVENUNK Rahul Insurance:SELF PAY [facility] Number: Effective Repository Date:2018-03-24 03/24/2018 BALBIR C Primary BALBIR C [place] [id number] Insurance:FUAD TAYNolvia: [facility] [id number] Health [facility] Number: Repository [place] [address]Wsm: [id number] Date:9795-29-92SJ BOX () [address] [address]IA: 03/24/2018 Secondary NOT GIVENUNK Rah[place] Insurance:SELF PAY [facility] Number: Effective Repository Date:2018-03-24 03/03/2018 BALBIR C Primary BALBIR C [place] [id number] Insurance:FUAD TAYB: [facility] [id number] Health [facility] Number: Repository [place] [address]Yal: [id number] Date:1530-02-88CT BOX () 6200[facility] [address]DD: 03/03/2018 Secondary NOT GIVENUNK Rahul Insurance:SELF PAY [facility] Number: Effective Repository Date:2018-02-24 02/24/2018 BALBIR C Primary BALBIR C [place] [id number] Insurance:ANTHEMPolicy SCOTTDOB: [facility] Number: [id number] [facility], [id number] [place]ository [place] [address]Vjl: ve Date:4365-37-60PE [address]OX [address]AL[address] () [address]SX: 02/24/2018 Secondary BALBIR C [place] Insurance:MEDICAIDPoli SCOTTDOB: [facility] cy Number: [id number] Hospital [id number] Repository Date:2018-01-24 02/24/2018 Tertiary NOT GIVENUNK [place] Insurance:SELF PAY [facility] Number: Effective Repository Date:2018-02-24 02/14/2018 BALBRI C Primary BALBIR C [place] [id number] Insurance:MEDICAIDPoli SCOTTDOB: [facility] Number: [id number] Forest [facility], [id number] Repository [place] [address]Mte: Date:2018-02-07 () 02/14/2018 Secondary NOT GIVENUNK [place] Insurance:SELF PAY [facility] Number: Effective Repository Date:2018-02-14 02/07/2018 BALBIR C Primary BALBIR C [place] [id number] Insurance:ANTHEMPolicy SCOTTDOB: [facility] Number: [id number] Forest [facility], [id number] [place]ository [place] [address]Guz: ve Date:9509-23-19YB BOX [address] DONALDSON () [address]UQ: 02/07/2018 Secondary NOT GIVENUNK [place] Insurance:SELF PAY [facility] Number: Effective Repository Date:2018-02-07 01/24/2018 BALBIR C Primary BALBIR C [place] [id number] Insurance:ANTHEMPolicy SCOTTDOB: Community [place] Number: [id number] Forest [facility], [id number] [place]ository [place] [address]Sfr: ve Date:4646-04-31DS BOX [address] DONALDSON () [address]VY: 01/24/2018 Secondary NOT GIVENUNK [place] Insurance:SELF PAY [facility] Number: Effective Repository Date:2018-01-24 01/09/2018 BALBIR Primary BALBIR [facility] SCOTTDOB: Insurance:ANTHEMPolicy SCOTTDOB: [facility] Number: [id number] [place] [address] [id number] [facility], ve Date: [place], [place] [address]Okf: [place] [address] () 12/27/2017 BALBIR C Primary BALBIR C [place] [id number] Insurance:ANTHEMPolicy SCOTTDOB: [facility] Number: [id number] Forest [facility], [id number] [place]ository [place] [address]Gzv: ve Date:2247-34-38ZF [address]GMFORTJDONNA SALAZAR () [address]CS: 12/27/2017 Secondary NOT GIVENUNK [place] Insurance:SELF PAY [facility] Number: Effective Repository Date:2017-12-27 12/27/2017 BALBIR Primary BALBIR [place] [id number] Insurance:ANTHEMPolicy SCOTTDOB: [facility] Number: [id number] Forest [facility], [id number] [place]ository [place] [address]Bwn: ve Date:3924-32-29EG [address]VCPYSBW, [place] () [address]SS: 12/27/2017 Secondary NOT GIVENUNK [place] Insurance:SELF PAY [facility] Number: Effective Repository Date:2017-12-27 12/27/2017 BALBIR Primary BALBIR Rah[place] [id number] Insurance:ANTHEMPolicy SCOTTDOB: Community [place] Number: [id number] Forest [facility], [id number] [place]ository [place] [address]Xde: ve Date:2978-52-08QG [address] [place] [address] () [address]VG: 12/27/2017 Secondary NOT GIVENUNK [place] Insurance:SELF PAY [facility] Number: Effective Repository Date:2017-12-27 12/13/2017 BALBIR Primary BALBIR [place] [id number] [address] Insurance:ANTHEMPolicy SARADOB: [address] Number: [id number] Hospital [address]Oap: (625) [id number] Repository [phone] () ve Date:1727-11-72XW [address] [place] [address]GY: 12/13/2017 Secondary NOT GIVENUNK [place] Insurance:SELF PAY [facility] Number: Effective Repository Date:2017-12-13 12/13/2017 BALBIR Primary BALBIR [place] [id number] [address] Insurance:ANTHEMPolicy SCOTTDOB: [address] Number: [id number] Hospital [address]Pmz: (670) [id number] Repository [phone] () ve Date:6054-53-15GO [address] [place] [address]KE: 12/13/2017 Secondary NOT GIVENUNK Rahul Insurance:SELF PAY [facility] Number: Effective Repository Date:2017-12-13 08/17/2017 BALBIR Primary BALBIR Ata Garnett SARADOB: Insurance:ANTHEM MAY RUIZDOB: [facility] [id number] [employer] [id number] [facility] [address] Repository [address] [place] [address] Number: 257[facility] [address]Ege: (330) [id number] [place] [address] [phone] (HP) Date:Plan Name:B2 08/03/2017 BALBIR Primary Insurance:SELF BALBIR [id number] Number: [facility] [address]Res: (330) Date: Repository [phone] (HP) 07/22/2017 BALBIR Primary BALBIR C Ata Garnett MAGGIB: Insurance:TIFFANY TAYB: [facility] NIMITZ [employer] [id number] Repository [address] [place] [address] Number: 257[facility]ENTERARELISA[facility], [address]Gog: (330) [id number] [place] [phone] (HP) Date:Plan Name: 07/22/2017 BALBIR Primary BALBIR Ata Garnett MAGGIB: Insurance:[facility]CE[facility] TAYB: [facility] [id number] Repository [address] [place] [address] Number: 257[facility]EL[facility], [address]Nda: (330) [id number] [place] [phone] [phone] (HP) Date:Plan Name:B2
== END ==
PROVIDERS: Nurse Practitioner Women's Health; Visit Provider Obstetrics & Gynecology
DX: Z34.90 Encounter for supervision of normal pregnancy, unspecified, unspecified trimester (principal)
CPT/HCPCS: 36415; 82950; 85025

== ENCOUNTER → 2018-06-26 13:31 | Outpatient (CLI) | payer MEDICAID, SELFPAY ==
--- OUTSIDE RECORDS SUMMARY | 2018-06-26 14:39 | XMS RPT_ITS ---
:1995 Author Organization OHIP Support Name Relationship Address Phone SCHFLER Unavailable [address] + [place] [address] STANISLAV RUIZ Unavailable [address] + [place] [address] SCHFLER Unavailable [address] + [place] [address] STANISLAV RUIZ Unavailable [address] + [place] [address] SCHFLER Unavailable [address] + [place] [address] STANISLAV RUIZ Unavailable [address] + [place] [address] SCHFLER Unavailable [address] + [place] [address] STANISLAV RUIZ Unavailable [address] + [place] [address] SCHFLER Unavailable [address] + [place] [address] STANISLAV RUIZ Unavailable [address] + [place] [address] STANISLAV RUIZ Unavailable [address] + [place] [address] UE Unavailable Unavailable Unavailable SCHFLER Unavailable [address] + [place] [address] STANISLAV RUIZ Unavailable [address] + [place] [address] SCHFLER Unavailable [address] + [place] [address] STANISLAV RUIZ Unavailable [address] + [place] [address] SCHFLER Unavailable [address] + [place] [address] STANISLAV RUIZ Unavailable [address] + [place] [address] SCHFLER Unavailable [address] + [place] [address] STANISLAV RUIZ Unavailable [address] + [place] [address] SCHFLER Unavailable [address] + [place] [address] STANISLAV RUIZ Unavailable [address] + [place] [address] SCHFLER Unavailable [address] + [place] [address] STANISLAV RUIZ Unavailable [address] + [place] [address] SCHFLER Unavailable [address] + [place] [address] STANISLAV RUIZ Unavailable [address] + [place] [address] SCHFLER Unavailable [address] + [place] [address] STANISLAV RUIZ Unavailable [address] + [place] [address] SCHFLER Unavailable [address] + [place] [address] STANISLAV RUIZ Unavailable [address] + [place] [address] BALBIR RUIZ Unavailable [address] + [place] [address] STANISLAV RUIZ Unavailable Unavailable + SCHFLER Unavailable [address] + [place] [address] STANISLAV RUIZ Unavailable [address] + [place] [address] SCHFLER Unavailable [address] + [place] [address] STANISLAV RUIZ Unavailable [address] + [place] [address] SCHFLER Unavailable [address] + [place] [address] STANISLAV RUIZ Unavailable [address] + [place] [address] SCHFLER Unavailable [address] + [place] [address] SARA STANISLAV Unavailable [address] + [place] [address] SCHFLER Unavailable [address] + [place] [address] STANISLAV RUIZ Unavailable [address] + [place] [address] NOT GIVEN Unavailable Unavailable Unavailable STANISLAV RUIZ Unavailable [address] + [place], [place] [id number] STANISLAV RUIZ Unavailable [address] + [place] [address] U Unavailable Unavailable Unavailable NOT GIVEN Unavailable Unavailable Unavailable NOT GIVEN Unavailable Unavailable Unavailable STANISLAV RUIZ Unavailable [address] + [place], [place] [id number] Care Team Providers Name Role Phone JUSTIN MATHIEU Attending Unavailable PHYLLIS BYRNE Referring Unavailable NO PRIMARY CAREMD Primary Care Unavailable PETERSON, VALENTINA DO Admitting Unavailable PETERSON, VALENTINA DO Attending Unavailable PETERSON, VALENTINA DO Primary Care Unavailable GARVEY, JEFFREY J Consulting Unavailable PROVIDER, UNKNOWN Consulting Unavailable PETERSON, VALENTINA DO Admitting Unavailable PETERSON, VALENTINA DO Attending Unavailable PETERSON, VALENTINA DO Primary Care Unavailable GARVEY, JEFFREY J Consulting Unavailable PROVIDER, UNKNOWN Consulting Unavailable PETERSON, VALENTINA DO Admitting Unavailable PETERSON, VALENTINA DO Attending Unavailable PETERSON, VALENTINA DO Primary Care Unavailable GARVEY, JEFFREY J Consulting Unavailable PROVIDER, UNKNOWN Consulting Unavailable Phyllis Byrne Attending Unavailable Primay Care Physicia, No Primary Care Unavailable Phyllis Byrne Attending Unavailable Phyllis Byrne Attending Unavailable Phyllis Byrne Referring Unavailable Phyllis Byrne Attending Unavailable Phyllis Byrne Attending Unavailable Phyllis Byrne Referring Unavailable Primay Care Physicia, No Primary Care Unavailable Leda Lopez Attending Unavailable Primay Care Physicia, No Referring Unavailable Phyllis Byrne Attending Unavailable Primay Care Physicia, No Referring Unavailable Phyllis Byrne Attending Unavailable Primay Care Physicia, No Referring Unavailable Primay Care Physicia, No Primary Care Unavailable Marcanthony, Phyllis Attending Unavailable Primay Care Physicia, No Referring Unavailable Primay Care Physicia, No Primary Care Unavailable Marcanthony, Phyllis Attending Unavailable Primay Care Physicia, No Primary Care Unavailable [place], Leda Attending Unavailable Primay Care Physicia, No Referring Unavailable Primay Care Physicia, No Primary Care Unavailable [place], Leda Attending Unavailable Primay Care Physicia, No Primary Care Unavailable [place], Leda Referring Unavailable John, Leda Attending Unavailable Primay Care [...] Primay Care Physicia, No Primary Care Unavailable [place], Leda Attending Unavailable Primay Care Physicia, No Referring Unavailable Primay Care Physicia, No Primary Care Unavailable John, Leda Attending Unavailable Primay Care Physicia, No Referring Unavailable John, Leda Attending Unavailable Primay Care Physicia, No Primary Care Unavailable PROBLEMS PROBLEMS DATE TYPE CONDITION / CODE ATTENDING STATUS SOURCE 06/26/2018 Unknown O09.93 - Leda Lopez Active [facility] Supervision of high Community risk , Hospital unspecified, third Repository trimester / O09.93(ICD-10) 06/13/2018 Unknown O09.299 - Leda Lopez Active [facility] Supervision of Community with Hospital other poor Repository reproductive or obstetric history, unspecified trimester / O09.299(ICD-10) 06/13/2018 Unknown Z36.9 - Encounter Leda Lopez Active [facility] for Community screening, Hospital unspecified / Repository Z36.9(ICD-10) 06/13/2018 Unknown Z87.51 - Personal Leda Lopez Active [facility] history of pre-term Community labor / Hospital Z87.51(ICD-10) Repository 06/13/2018 Unknown Z3A.32 - 32 weeks John, Leda Active [facility] gestation of Community / Hospital Z3A.32(ICD-10) Repository 06/13/2018 Unknown O09.213 - [place], Leda Active [facility] Supervision of Community with Hospital history of pre-term Repository labor, third trimester / O09.213(ICD-10) 06/13/2018 Unknown Z30.9 - Encounter [place], Leda Active [facility] for contraceptive Community management, Hospital unspecified / Repository Z30.9(ICD-10) 05/16/2018 Unknown O09.92 - John, Leda Active [facility] Supervision of high Community risk , Hospital unspecified, second Repository trimester / O09.92(ICD-10) 05/16/2018 Unknown O09.212 - John, Leda Active [facility] Supervision of Community with Hospital history of pre-term Repository labor, second trimester / O09.212(ICD-10) 05/16/2018 Unknown Z3A.30 - 30 weeks John, Leda Active [facility] gestation of Community / Hospital Z3A.30(ICD-10) Repository 04/18/2018 Unknown Z3A.26 - 26 weeks Quan, Active [facility] gestation of [facility] / Hospital Z3A.26(ICD-10) Repository 04/13/2018 Unknown O09.91 - John, Leda Active [facility] Supervision of high Community risk , Hospital unspecified, first Repository trimester / O09.91(ICD-10) 04/13/2018 Unknown O09.211 - [place], Leda Active [facility] Supervision of Community with Hospital history of pre-term Repository labor, first trimester / O09.211(ICD-10) 04/13/2018 Unknown Z3A.25 - 25 weeks John, Leda Active [facility] gestation of Community / Hospital Z3A.25(ICD-10) Repository 04/13/2018 Unknown L03.317 - [place], Leda Active [facility] Cellulitis of Community buttock / Hospital L03.317(ICD-10) Repository 03/27/2018 Unknown R80.9 - John, Leda Active [facility] Proteinuria, Community unspecified / Hospital R80.9(ICD-10) Repository 03/24/2018 Unknown Z3A.22 - 22 weeks [place], Elda Active [facility] Hospital Z3A.22(ICD-10) Repository 03/09/2018 Unknown Z3A.18 - 18 weeks Quan, Active [facility] gestation of [facility] / Hospital Z3A.18(ICD-10) Repository 12/14/2017 Unknown Z34.90 - Encounter Quan, Active [facility] for supervision of [facility] normal , Hospital unspecified, Repository unspecified trimester / Z34.90(ICD-10) 08/06/2017 Unknown SUPERVISION OF [facility] Quan, Active [facility] RISK , [facility] UNSP, FIRST Hospital TRIMESTER / Repository O09.91(ICD-10) 08/06/2017 Unknown WEEKS OF GESTATION Quan, Active [facility] OF NOT [facility] SPECIFIED / Hospital Z3A.00(ICD-10) Repository 07/22/2017 Principle Encounter for VALENTINA WINKLER Active [facility] Pomy[facility] Diagnosis supervision of [facility] , first Repository trimester / Z3481(ICD-10) PROCEDURES PROCEDURES No Procedure Records FoundRESULTS RESULTS 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, [place] [phone] VISITDate of Service: 06/26/18MR#: [id number] Acct: [id number]: BALBIR RUIZ Rep #: [id number]: 1995 Provider: JOEL Levy/Sex: 23/F [place] [facility] [place]Status[place] SignedIntakeVital Signs06/26/18 Height 5 ft 3 in06/26/18 Weight: 209 lb 8 oz06/26/18 Body Mass Index (BMI) 37.010 Blood Pressure 122/80 HIntakeVisit Reasons: 36 weeksChief Complaint: est obInterpreter Required: NoIs patient in pain?: NoAllergiesNo Known Allergies Allergy (Verified 06/26/18 08:53)Medicationsprenatal vitamin,calcium,meffhfco-jomt-xnbwx acid tablet 1 tab PO QDAY 12/13/17 [HistoryConfirmed 06/13/18]hydroxyprogesterone (PF)( preserving) 250 mg/mL (1 mL) IM oil 250 mg IM QWEEK 02/07/18[History Confirmed 06/13/18]Last Menstral Period: 10/16/17Zika: Zika virus screening: NegativeBreastfeeding: NoPFSHPFSHSocial HistorySmoking Status: Former smokersecond hand exposure: Noalcohol intake: neversubstance use type: does not usewhat type of physical activity do you participate in: noneadditional social history: CodyPregancy HistoryGravida 3 Elective abortionsHx Para 1 Spontaneous abortions 1Past PregnanciesDel. DatName GA/WeeksOutcome Route [facility] WeigInfant GLabor LgAnesthesDel LocaProviderFOBe ht en ia tn04/28/16Adeline 34 live birNSVD 5lbs 9 oFemale none millersbth - pre unces xayspumNAI20 weeks:Details: BALBIR RUIZ is a 23 year old who presents for routine OB visit.OB VisitEDD CalculatorEstimated Delivery Date 07/23/18Based on LMP (certain) 10/16/17Current WG 36w 1dFetal Number 1Expected Delivery Route/PlanSVDPrenatal Specific Issue/Plansflu vaccine declinedminichart given: yestdap vaccine: givenrhogam: NALARC form signed: declineslabor support person: Codypain management: no epiduralcut cord/dad catch: cord onlybreastfeeding: yesPP control planned: Mirena 6 weeks ppspecial requests: []Initial Weight: 162 lbDate Weight BP Urine PrFHR FuHt Pres MoCTX DilationFetal StVisit NoProviderCommentsE ot v teGA G Effaclucose edVisit NotesVisit Date: 06/26/18No VB, LOF. Rare CTX.FEDERICO Allen on 06/26/18Visit Date: 06/13/18Doing well. Some rare CTX. No VB, LOF.FEDERICO Allen on 06/13/18Visit Date: 05/30/18no vb lof good fm no regular ctxSharnol Byrne MD on 05/30/18Visit Date: 05/16/18doing well. Good FM. No VB, LOFMollFEDERICO Wilkinson on 05/16/18Visit Date: 04/18/18no vb lof good fm n oregular ctx tdap today cbc gctSharnol Byrne MD on 04/18/18Visit Date: 04/13/18Work in for painful swollen lump upper left buttocks after progesterone injection 2 nightsago. States less tender and red today. This was not her first injection.FEDERICO Allen on 04/13/18Visit Date: 03/24/18Doing well. No VB, LOF.FEDERICO Allen on 03/24/18Visit Date: 02/24/18needs to have second set of sequential screen drawn. no vb lof cramping. anatomy scanorderOralia Byrne MD on 02/24/18Visit Date: 01/24/18Doing well. Nausea improved. Denies CTX, LOF, VBMoFEDERICO Pool on 01/24/18Visit Date: 12/27/17no vb cramping doing Alexandra Byrne MD on 01/04/18ACOGFirst TrimesterFirst Trimester: Desire [...] 03/03/18Rubella IgG Antibody 26.3 IU/mL 12/27/17RPR NONREACTIVE (NONREACTIVE) 12/27/17Hep Bs Antigen Negative (Negative) 12/27/17Details: HIV:Urine Culture:Sequential Screen:NIPT Screen:ROSCClicktreeeports system reviewed and no additional complaints, except as docuGIDenies nausea, Denies vomiting, Denies abdominal painExamConstGeneral: cooperativeNutritional Appearance: well nourishedGIPalpation: soft, nontender, other (gravid)NbzdvztOHNJT4Rtkdvx Urine Glucose Negative Last Edit by Nora Lamas on 06/26/18 08:54Office Urine Protein Negative Last Edit by Nora Lamas on 06/26/18 08:54Assessment AND PlanProblems1. High risk due to history of labor in third trimester O09.608B8C7 [facility] 07/23/18 gender surprise PC [place] plan progesterone liggzsjmkf61-94 weekMakena information/order faxed 01/24/18 EM2. Supervision of high risk in third trimester O09.93PRR EDD1 PC Lashay Cody3. History of miscarriage, currently O09.2994. screening encounter Z36.9NT on 01/09/18 WNL5. 36 weeks gestation of Z3A.36Pregancy HistoryGravida 3 Elective abortionsHx Para 1 Spontaneous abortions 1Hx # Term Pregnancies Ectopic pregnanciesHx # Pregnancies Multiple births# of living childrenPast PregnanciesDel. Date Name GA/Weeks Outcome Route Bth Weight Gen Labor Lgth Anesthesia DelLocatn Provider FOB04/28/1632Sxekdlv90jyhb - xqsppcuCIDW8eko 9 ouncesFemale nonemillprovidence seward [facility] and [facility]6. Encounter for management of intrauterine contraceptive device (IUD), unspecified IUDmanagement type Z30.431PlanOrders placed: noneStop progesterone injectionsReviewed of labor precautions, movement/kick countsACOG trimester education reviewed and updatedSee problem list details for updated plan of careGestational age appropriate handout givenRTO: 1 weekOrdersOrders:CodingLevel of Care CodeOff vis,est,level 3DiagnosesHigh risk due to history of labor in third trimester O09.Trimester: third trimesterSupervision of high risk in third trimester O09.93Trimester: third trimesterHistory of miscarriage, currently O09.299Antenatal screening encounter Z36.936 weeks gestation of Z3A.36Weeks of gestation: 36 weeksEncounter for management of intrauterine contraceptive device (IUD), unspecified IUD managementtype Z30.431Contraceptive encounter type: IUD managementIUD management: ruylfshccpi35/01/18913 <Electronically signed by Leda CABALLERO>Date Leda CORTEZCCosigner Signature: Date (if applicable)CC: [facility]AMP[facility] MAK[facility] OFFICE VISIT Observed: 06/13/2018 Status: F Source: [place] REPORT 9:00 AM [facility] [address] [place] [address] [phone] VISITDate of Service: 06/13/18MR#: [id number] Acct: [id number]: BALBIR RUIZ Rep #: [id number]: 1995 Provider: JOEL Toledoge/Sex: 23/F [facility]UMtatus: SignedIntakeVital Signs06/13/18 Height 5 ft 3 in06/13/18 Weight: 206 lb 6 oz06/13/18 Body Mass Index (BMI) 36.509 Blood Pressure 130/79IntakeVisit Reasons: 32 weeksInterpreter Required: NoAccompanied by: husbandIs patient in pain?: Yes Pain scale (1-10): 4AllergiesNo Known Allergies Allergy (Verified 06/13/18 08:31)Medicationsprenatal vitamin,calcium,rgizdrzt-ufnq-qsrll acid tablet 1 tab PO QDAY 12/13/17 [HistoryConfirmed 06/13/18]hydroxyprogesterone (PF)( preserving) 250 mg/mL (1 mL) IM oil 250 mg IM QWEEK 02/07/18[History Confirmed 06/13/18]Last Menstral Period: 10/16/17Zika: Zika virus screening: NegativeBreastfeeding: [...] 9 oFemale none millersbth - pre unces rufrtqlSGM10 weeks:Details: BALBIR RUIZ is a 23 year old who presents for routine OB visit.OB VisitEDD CalculatorEstimated Delivery Date 07/23/18Based on LMP (certain) 10/16/17Current WG 34w 2dFetal Number 1Expected Delivery Route/PlanSVDPrenatal Specific Issue/Plansflu vaccine declinedminichart given: yestdap vaccine: givenrhogam: NALARC form signed: declineslabor support person: Codypain management: no epiduralcut cord/dad catch: cord onlybreastfeeding: yesPP control planned: Mirena 6 weeks ppspecial requests: []Initial Weight: 162 lbDate Weight BP Urine PrFHR FuHt Pres MoCTX DilationFetal StVisit NoProviderCommentsE ot v teGA G Effaclucose edVisit NotesVisit Date: 06/13/18Doing well. Some rare CTX. No VB, LOF. FEDERICO Allen on 06/13/18Visit Date: 05/30/18no vb lof good fm no regular ctx Phyllis Byrne MD on 05/30/18Visit Date: 05/16/18doing well. Good FM. No VB, LOF FEDERICO Allen on 05/16/18Visit Date: 04/18/18no vb lof good fm n [...] 03/03/18Rubella IgG Antibody 26.3 IU/mL 12/27/17RPR NONREACTIVE (NONREACTIVE) 12/27/17Hep Bs Antigen Negative (Negative) 12/27/17Chlam trachomat DNA PCR Cancelled 12/13/17N.gonorrhoeae DNA (PCR) Cancelled 12/13/17Details: HIV:Urine Culture:Sequential Screen:NIPT Screen:ROSConstReports system reviewed and no additional complaints, except as docuGIDenies nausea, Denies vomiting, Denies abdominal painExamConstGeneral: cooperativeNutritional Appearance: well nourishedGIPalpation: soft, nontender, other (gravid)Office MedsMakenaPerforming Provider: Leda Lopez NP-CAdministered by: Linda Narayanan on 06/13/18 08:45Dose Route Admin Location Lot Number Expiration Date NDC Vantxhygblgg897 mg IM right gluteus 132204Z-3 02/23/21 19636-746-75 AMAG RWGUTVITFNHenukocRCKCT6Uublsp Urine Glucose Negative Last Edit by Linda Narayanan on 06/13/18 08:45Office Urine Protein Negative Last Edit by Linda Narayanan on 06/13/18 08:45Assessment AND PlanProblems1. High risk due to history of labor in third trimester O09.038B7D8 [facility] 07/23/18 gender surprise PC [place] plan progesterone zuedxpmcxk57-67 weekMakena information/order faxed 01/24/18 EM2. History of miscarriage, currently O09.2993. screening encounter Z36.9NT on 01/09/18 WNL4. 32 weeks gestation of Z3A.32Pregancy HistoryGravida 3 Elective abortionsHx Para 1 Spontaneous abortions 1Hx # Term Pregnancies Ectopic pregnanciesHx # Pregnancies Multiple births# of living childrenPast PregnanciesDel. Date Name GA/Weeks Outcome Route Bth Weight Infant Gen Labor Lgth Anesthesia DelLocatn Provider FOB04/28/1610Ykfcjjv97ioyo - csptromPOHI5uka 9 ouncesFemalwright-[facility]5. Encounter for contraceptive management, unspecified type Z30.9PlanOrders placed: nonecontinue progesterone injections until 36 weeksPlans mirena IUD 6 wk ppReviewed of labor precautions, movement/kick countsACOG trimester education reviewed and updatedSee problem list details for updated plan of careGestational age appropriate handout givenRTO: 2 weeksOrdersOrders:MedicationsDiscontinued:Cherelle (hydroxyprogest(PF)(preg presv)) Ucbqaj240 mg IM ONCE NS Z87.51 Linda Narayanantinued Reason: Office Medication has been Documented as givenCodingLevel of Care CodeOff vis,est,level 3DiagnosesHigh risk due to history of labor in third trimester O09.213Trimester: third trimesterHistory of miscarriage, currently O09.299Antenatal screening encounter Z36.932 weeks gestation of Z3A.32Weeks of gestation: 32 weeksEncounter for contraceptive management, unspecified type Z30.9Contraceptive encounter type: zzvakezlaqd31/18/18 0900 <Electronically signed by Leda CORTEZC>Date Leda Lopez NP-CCosigner Signature: Date (if applicable)CC: [facility] OFFICE VISIT Observed: 05/30/2018 Status: F Source: [place] REPORT 10:06 AM [facility] REPOSITORY [place] [facility] [address], [place] [phone] VISITDate of Service: 05/30/18MR#: [id number] Acct: [id number]: BALBIR RUIZ Rep #: [id number]: 1995 Provider: Phyllis Byrne MDAge/Sex: 23/ [place] [facility] [place]Status: SignedIntakeVital Signs05/30/18 Height 5 ft 3 in05/30/18 Weight: 203 lb 4 oz05/30/18 Body Mass Index (BMI) 36.009 Blood Pressure 120/75IntakeVisit Reasons: 32 weeksChief Complaint: est obInterpreter Required: NoIs patient in pain?: NoAllergiesNo Known Allergies Allergy (Verified 05/30/18 09:33)Medicationsprenatal vitamin,calcium,jxnumynl-opsh-kihor acid tablet 1 tab PO QDAY 12/13/17 [HistoryConfirmed 05/30/18]hydroxyprogesterone (PF)( preserving) 250 mg/mL (1 mL) IM oil 250 mg IM QWEEK 02/07/18[History Confirmed 05/30/18]Last Menstral Period: 10/16/17Zika: Zika virus screening: NegativeBreastfeeding: [...] 9 oFemale none millersbth - pre unces xiohsegIZU66 weeks:Details: BALBIR RUIZ is a 23 year old who presents for routine OB visit.OB VisitEDD CalculatorEstimated Delivery Date 07/23/18Based on LMP (certain) 10/16/17Current WG 32w 2dFetal Number 1Expected Delivery Route/PlanSVDPrenatal Specific Issue/Plansflu vaccine declinedminichart given: yestdap vaccine: givenrhogam: NALARC form signed: declineslabor support person: Codypain management: no epiduralcut cord/dad catch: cord onlybreastfeeding: yesPP control planned: Mirena 6 weeks ppspecial requests: []Initial Weight: 162 lbDate Weight BP Urine PrFHR FuHt Pres MoCTX DilationFetal StVisit NoProviderCommentsE ot v teGA G Effaclucose edVisit NotesVisit Date: 05/30/18no vb lof good fm no regular ctx Phyllis Byrne MD on 05/30/18Visit Date: 05/16/18doing well. Good FM. No VB, LOF FEDERICO Allen on 05/16/18Visit Date: 04/18/18no vb lof good fm n [...] 03/03/18Rubella IgG Antibody 26.3 IU/mL 12/27/17RPR NONREACTIVE (NONREACTIVE) 12/27/17Hep Bs Antigen Negative (Negative) 12/27/17Chlam trachomat DNA PCR Cancelled 12/13/17N.gonorrhoeae DNA (PCR) Cancelled 12/13/17Details: HIV:Urine Culture:Sequential Screen:NIPT Screen:ROSConstDenies fever(s)GIDenies abdominal pain, Reports as per HPIGUDenies vaginal discharge, Denies abnormal vaginal bleeding, Reports as per HPIExamConstGeneral: healthy appearing, comfortable, no acute distressGIInspection: normal to inspectionPalpation: soft, aloatyxddJoxwnrvTKVMI0Wnjpyc Urine Glucose Negative Last Edit by Nora Lamas on 05/30/18 09:38Office Urine Protein Negative Last Edit by Nora Lamas on 05/30/18 09:38Assessment AND PlanProblems1. 32 weeks gestation of Z3A.32Pregancy HistoryGravida 3 Elective abortionsHx Para 1 Spontaneous abortions 1Hx # Term Pregnancies Ectopic pregnanciesHx # Pregnancies Multiple births# of living childrenPast PregnanciesDel. Date Name GA/Weeks Outcome Route Bth Weight Infant Gen Labor Lgth Anesthesia DelLocatn Provider FOB04/28/1686Skhmkoc77ayoa - tjnfolqHMIT6fqx 9 ouncesFemale [facility]2. screening encounter Z36.9NT on 01/09/18 WNL3. Supervision of high risk in third trimester O09.93PRR EDD1 PC [place]4. High risk due to history of labor in third trimester O09.450O7W8 ALVAREZ 07/23/18 gender surprise PC [place] plan progesterone hcdysyuuxb28-92 weekMakena information/order faxed 01/24/18 EM5. History of miscarriage, currently O09.299Planfetal movement and labor precautions reviewed.ACOG trimester education reviewed and updated.see problem list details for updated plan management information and see below for ordersplaced at this visit.GA appropriate handout given.OrdersOrders:CodingLevel of Care CodeOB MhneqocKgddjteom63 weeks gestation of Z3A.32Weeks of gestation: 32 weeksAntenatal screening encounter Z36.9Supervision of high risk in third trimester O09.93Trimester: third trimesterHigh risk due to history of labor in third trimester O09.213Trimester: third trimesterHistory of miscarriage, currently O09.8405705/30/18 1006 <Electronically signed by Phyllis Byrne MD>Date Phyllis Byrne MDCosigner Signature: Date (if applicable)CC: CHAMPAGNE MAKER OFFICE VISIT Observed: 05/16/2018 Status: F Source: [place] REPORT 8:53 AM [facility] [address], [place] [phone] VISITDate of Service: 05/16/18MR#: [id number] Acct: [id number]: BALBIR RUIZ Rep #: [id number]: 1995 Provider: JOEL Levy/Sex: 23/F [place] [facility] [place]: SignedIntakeVital Signs05/16/18 Height 5 ft 3 in05/16/18 Weight: 197 lb 8 oz05/16/18 Body Mass Index (BMI) 34.908 Blood Pressure 118/69IntakeVisit Reasons: 30 weeksChief Complaint: est obInterpreter Required: NoIs patient in pain?: NoAllergiesNo Known Allergies Allergy (Verified 05/16/18 08:37)Medicationsprenatal vitamin,calcium,wnaompno-aqlw-uomwr acid tablet 1 tab PO QDAY 12/13/17 [HistoryConfirmed 04/18/18]hydroxyprogesterone (PF)( preserving) 250 mg/mL (1 mL) IM oil 250 mg IM QWEEK 02/07/18[History Confirmed 04/18/18]Last Menstral Period: 10/16/17Zika: Zika virus screening: NegativeBreastfeeding: NoPFSHPFSHSocial HistorySmoking Status: Former smokersecond hand exposure: Noalcohol intake: neversubstance use type: does not usewhat type of physical activity do you participate in: noneadditional social history: CodyPregancy HistoryGravida 3 Elective abortionsHx Para 1 Spontaneous abortions 1Past PregnanciesDel. DatName GA/WeeksOutcome Route [facility] WeigInfant GLajordyn LgAnesthesDel LocaProviderFOBe ht en ia tn04/28/16Adeline 34 live birNSVD 5lbs 9 oFemale none millersbth - pre unces pmpsqtwJSE53 weeks:Details: BALBIR RUIZ is a 23 year old who presents for routine OB visit.OB VisitEDD CalculatorEstimated Delivery Date 07/23/18Based on LMP (certain) 10/16/17Current WG 30w 2dFetal Number 1Expected Delivery Route/PlanSVDPrenatal Specific Issue/Plansflu vaccine declinedminichart given: yestdap vaccine: givenrhogam: NALARC form signed: declineslabor support person: Codypain management: no epiduralcut cord/dad catch: cord onlybreastfeeding: yesPP control planned: []special requests: []Initial Weight: Not RecordedDate Weight BP Urine PrFHR FuHt Pres MoCTX DilationFetal StVisit NoProviderCommentsE ot v teGA G Effaclucose edVisit NotesVisit Date: 05/16/18do well. Good FM. No VB, LOF FEDERICO Allen on 05/16/18Visit Date: 04/18/18no vb lof good fm n [...] 03/03/18Rubella IgG Antibody 26.3 IU/mL 12/27/17RPR NONREACTIVE (NONREACTIVE) 12/27/17Hep Bs Antigen Negative (Negative) 12/27/17Chlam trachomat DNA PCR Negative (Negative) 08/03/17N.gonorrhoeae DNA (PCR) Negative (Negative) 08/03/17Details: HIV:Urine Culture:Sequential Screen:NIPT Screen:ROSConstReports system reviewed and no additional complaints, except as docuGIDenies nausea, Denies vomiting, Denies abdominal painExamConstGeneral: cooperativeNutritional Appearance: well nourishedGIPalpation: soft, nontender, other (gravid)FnzgptbFVGII1Ujqbnl Urine Glucose Negative Last Edit by Nora Lamas on 05/16/18 08:44Office Urine Protein Negative Last Edit by Nora Lamas on 05/16/18 08:44Assessment AND PlanProblems1. Supervision of high risk in second trimester O09.92PRR EDD1 PC [place]2. High risk due to history of labor in second trimester O09.131S2R9 ALVAREZ 07/23/18 gender surprise PC Lashay Melvin plan progesterone hlvwwoqaai12-66 weekMakena information/order faxed 01/24/18 EM3. History of miscarriage, currently O09.2994. screening encounter Z36.9NT on 01/09/18 WNL5. 30 weeks gestation of Z3A.30Pregancy HistoryGravida 3 Elective abortionsHx Para 1 Spontaneous abortions 1Hx # Term Pregnancies Ectopic pregnanciesHx # Pregnancies Multiple births# of living childrenPast PregnanciesDel. Date Name GA/Weeks Outcome Route Bth Weight Infant Gen Labor Lgth Anesthesia DelLocatn Provider FOB04/28/1601Guaorep45pwry - ybojbueHVVS4rgn 9 ouncesFemale nonemillersburgPlanOrders placed: progesterone injection continues weeklyReviewed of labor precautions, movement/kick countsACOG trimester education reviewed and updatedSee problem list details for updated plan of careGestational age appropriate handout givenRTO: 2 weeksOrdersOrders:CodingLevel of Care CodeOff vis,est,level 3DiagnosesSupervision of high risk in second trimester O09.92Trimester: second trimesterHigh risk due to history of labor in second trimester O09.212Trimester: second trimesterHistory of miscarriage, currently O09.299Antenatal screening encounter Z36.930 weeks gestation of Z3A.30Weeks of gestation: 30 weeks05/16/18 0853 <Electronically signed by Leda CORTEZC>Date Leda CORTEZCCosigner Signature: Date (if applicable)CC: GLUCOSE CHALLENGE GEST Collected: 04/27/2018 Status: F Source: RAHUL 1H 50G 11:34 AM [facility] REPOSITORY TYPE CODE TESTS RESULT OUT OF RANGE REFERENCE UNITS LAB L501.0250 Normal 70-140 mg/dL GLU 110 GEST 50g 1H Performed By: #### L501.0250 #### [facility] [address] [place], [address] CBC W/DIFF, AUTOMATED Collected: 04/27/2018 Status: F Source: RAHUL 11:34 AM [facility] REPOSITORY TYPE CODE TESTS RESULT OUT OF RANGE REFERENCE UNITS LAB L100.1000 High 4.4-11.0 K/mm3 WBC 14.6 LAB L100.1200 Low 4.2-5.4 M/mm3 RBC 3.95 LAB L100.1300 Normal 12.0-15.0 g/dl HGB 12.0 LAB L100.1400 Low 37-47 % HCT 35.6 LAB L100.1500 Normal 81-99 fL MCV 90.1 LAB L100.1600 Normal 27.0-32.0 pg MCH 30.4 LAB L100.1700 Normal 32-36 g/gl MCHC 33.7 LAB L100.1810 Normal 11.6-14.6 % RDW 12.9 CV LAB L100.1820 Normal 35.1-43.9 fl RDW 42.0 SD LAB L100.1900 Normal 150-450 K/mm3 PLT 235 LAB L100.2000 Normal 6.2-12.0 fl MPV 10.7 LAB L100.2100 High 47-70 % NEUT% 78.0 LAB L100.2200 Low 19-41 % LY% 11.7 LAB L100.2300 Normal 0-10 % MONO% 5.1 LAB L100.2400 Normal 0-5 % EO% 4.5 LAB L100.2500 Normal 0-1 % BASO% 0.2 LAB L100.2550 Normal 0.0-0.9 % IM 0.500 GRAN % Result Comment: IG% - Immature Granulocytes (promyelocytes, myelocytes and metamyelocytes) > 1% indicates that a LEFT SHIFT is Present. LAB L100.2620 High 2.0-7.7 X10 3/uL Absolute Neut 11.4 LAB L100.2720 Normal 0.83-4.51 X10 3/ul Absolute Lymph 1.70 Performed By: #### L100.0100 #### [facility] [address] [place], [address] [employer] OFFICE VISIT Observed: 04/18/2018 Status: F Source: GRUNDY REPORT 11:15 AM [facility] REPOSITORY [facility] [place] [address] [phone] VISITDate of Service: 04/18/18MR#: [id number] Acct: [id number]: BALBIR RUIZ Rep #: [id number]: 1995 Provider: Phyllis Byrne MDAge/Sex: 23/F [place] [facility] [place]Status: SignedIntakeVital Signs04/18/18 Height 5 ft 3 in04/18/18 Weight: 188 lb 4 oz04/18/18 Body Mass Index (BMI) 33.307 Blood Pressure 120/66IntakeVisit Reasons: 26 weeksInterpreter Required: NoAccompanied by: husbandIs patient in pain?: NoAllergiesNo Known Allergies Allergy (Verified 04/18/18 11:06)Medicationsprenatal vitamin,calcium,cyogbqww-icxr-kwlnp acid tablet 1 tab PO QDAY 12/13/17 [HistoryConfirmed 04/18/18]hydroxyprogesterone (PF)( preserving) 250 mg/mL (1 mL) IM oil 250 mg IM QWEEK 02/07/18[History Confirmed 04/18/18]Last Menstral Period: 10/16/17Zika: Zika virus screening: NegativeBreastfeeding: NoPFSHPFSHSocial HistorySmoking Status: Former smokersecond hand exposure: Noalcohol intake: neversubstance use type: does not usewhat type of physical activity do you participate in: noneadditional social history: CodyPregancy HistoryGravida 3 Elective abortionsHx Para 1 Spontaneous abortions 1Past PregnanciesDel. DatName GA/WeeksOutcome Route [facility] LocaProviderFOBe ht en pr tn04/28/16Adeline 34 live birNSVD 5lbs 9 oFemale none millersbth - pre unces sptuvhbRXR73 weeks:Details: BALBIR RUIZ is a 23 year old who presents for routine OB visit.OB VisitEDD CalculatorEstimated Delivery Date 07/23/18Based on LMP (certain) 10/16/17Current WG 26w 2dFetal Number 1Expected Delivery Route/PlanSVDPrenatal [...] red today. This was not her first injection.DANA AllenC on 04/13/18Visit Date: 03/24/18Doing well. No VB, [...] 03/03/18Rubella IgG Antibody 26.3 IU/mL 12/27/17RPR NONREACTIVE (NONREACTIVE) 12/27/17Hep Bs Antigen Negative (Negative) 12/27/17Chlam trachomat DNA PCR Negative (Negative) 08/03/17N.gonorrhoeae DNA (PCR) Negative (Negative) 08/03/17Details: HIV:Urine Culture:Sequential Screen:NIPT Screen:ROSConstDenies fever(s)GIDenies abdominal pain, Reports as per HPIGUDenies vaginal discharge, Denies abnormal vaginal bleeding, Reports as per HPIExamConstGeneral: healthy appearing, comfortable, no acute distressGIInspection: normal to inspectionPalpation: soft, gfajfrjrkScbovdjWEFQE2Xcxmop Urine Glucose Negative Last Edit by Linda Narayanan on 04/18/18 11:13Office Urine Protein Negative Last Edit by Linda Narayanan on 04/18/18 11:13Assessment AND PlanProblems1. screening encounter Z36.9NT on 01/09/18 WNL2. History of miscarriage, currently O09.2993. Supervision of high risk in second trimester O09.92PRR EDD1 PC [place]4. High risk due to history of labor in second trimester O09.658Q4N7 ALVAREZ 07/23/18 gender surprise PC [place] plan progesterone tsxysihxwn70-72 weekMakena information/order faxed 01/24/18 EM5. 26 weeks gestation of Z3A.26Pregancy HistoryGravida 3 Elective abortionsHx Para 1 Spontaneous abortions 1Hx # Term Pregnancies Ectopic pregnanciesHx # Pregnancies Multiple births# of living childrenPast PregnanciesDel. Date Name GA/Weeks Outcome Route Bth Weight Gen Labor Lgth Anesthesia DelLocatn Provider FOB04/28/1668Quzcpdg66lbiw - sdqlvayNJZF8jls 9 ouncesFemale nonemillersburgPlanOrders placed: see belowACOG trimester education reviewed and updated.see problem list details for updated plan management information.GA appropriate handout given.OrdersOrders:CodingLevel of Care CodeOff vis,est,level 3DiagnosesAntenatal screening encounter Z36.9History of miscarriage, currently O09.299Supervision of high risk in second trimester O09.92Trimester: second trimesterHigh risk due to history of labor in second trimester O09.212Trimester: second zvtsjcvpu18 weeks gestation of Z3A.26Weeks of gestation: 26 weeks04/18/18 1115 <Electronically signed by Phyllis Byrne MD>Date Phyllis Byrne MDCosigner Signature: Date (if applicable)CC: [employer] OFFICE VISIT Observed: 04/13/2018 Status: F Source: RAHUL REPORT 2:32 PM [facility] REPOSITORY [facility] [address] [place] [address] [phone] VISITDate of Service: 04/13/18MR#: [id number] Acct: [id number]: BALBIR RUIZ Rep #: [id number]: 1995 Provider: JOEL Levy/Sex: [place] [facility] [place]: SignedIntakeVital Signs04/13/18 Height 5 ft 3 in04/13/18 Weight: 186 lb 4 oz04/13/18 Body Mass Index (BMI) 33.007 Blood Pressure 131/79IntakeVisit Reasons: Knot where progesterone injectionInterpreter Required: NoAllergiesNo Known Allergies Allergy (Verified 04/13/18 14:00)Medicationsprenatal vitamin,calcium,qbdnzxfy-ubjz-debyy acid tablet 1 tab PO QDAY 12/13/17 [...] 25w 4dFetal Number 1Expected Delivery Route/PlanSVDPrenatal Specific Issue/Plansflu vaccine [...] 03/03/18Rubella IgG Antibody 26.3 IU/mL 12/27/17RPR NONREACTIVE (NONREACTIVE) 12/27/17Hep Bs Antigen Negative (Negative) 12/27/17Chlam trachomat DNA PCR Negative (Negative) 08/03/17N.gonorrhoeae DNA (PCR) Negative (Negative) 08/03/17Details: HIV:Urine Culture:Sequential Screen:NIPT Screen:ExamGUOther: Upper outer left buttocks slight erythema, warm to touch, 3cm in size. Soft, nodefinitive mass. May be just below large muscle mass. Slightly tender, again states improvedfrom yesterday.ChhsednYVPUG2Hdaddf Urine Glucose Negative Last Edit by Linda Narayanan on 04/13/18 14:05Office Urine Protein Negative Last Edit by Linda Narayanan on 04/13/18 14:05Assessment AND PlanProblems1. High risk due to history of labor in first trimester O09.402P3F5 ALVAREZ 07/23/18 gender surprise PC Lashay Melvin plan progesterone custarcfsv24-37 weekMakena information/order faxed 01/24/18 EM2. Supervision of high risk in first trimester O09.91PRR EDD1 PC [place]3. 25 weeks gestation of Z3A.254. Cellulitis of buttock L03.317PlanMinimal cellulitis and improving.Warm compressesCall if worsens, fever occursAvoid this site for future injectionsInstruct on IM injection in upper thigh/muscle and avoid tattoo area/inkRTO 04/20 routine OB and next progesterone injectionOrdersOrders:CodingLevel of Care CodeOff vis,est,level 3DiagnosesHigh risk due to history of labor in first trimester O09.211Trimester: first trimesterSupervision of high risk in first trimester O09.91Trimester: first fkhovyzsq87 weeks gestation of Z3A.25Cellulitis of buttock L03.317Site of cellulitis: xzhmadj99/19/18 1432 <Electronically signed by Leda CORTEZC>Date Leda Lopez NP-CCosigner Signature: Date (if applicable)CC: PROTEIN+CREATININE Collected: Status: F Source: RAHUL FERNANDEZ,URINE 03/24/2018 5:06 PM [facility] REPOSITORY TYPE CODE TESTS RESULT OUT OF RANGE REFERENCE UNITS LAB L501.1200 Normal NO RANGE EST. mg/dL UR 204.00 CREAT LAB L501.1930 High <11.9 mg/dL 27.4 PROTEIN,UR.R AN. LAB L501.1940 Normal 0-200 mg/g CRE 134 PROT:CRE RATIO Performed By: #### L501.0900 #### [facility] [address] [place], [address] [employer] OFFICE VISIT Observed: 03/24/2018 Status: F Source: RAHUL REPORT 10:02 AM [facility] REPOSITORY [facility] [address], [place] [phone] VISITDate of Service: 03/24/18MR#: [id number] Acct: [id number]: BALBIR RUIZ Rep #: [id number]: 1995 Provider: JOEL Toledoge/Sex: 22/F [facility]tatus: SignedIntakeVital Signs03/24/18 Height 5 ft 3 in06/29/18 Weight: 177 lb 8 oz03/24/18 Body Mass Index (BMI) 31.406 Blood Pressure 131/72IntakeVisit Reasons: 22 weeksChief Complaint: est obInterpreter Required: NoIs patient in pain?: NoAllergiesNo Known Allergies Allergy (Verified 03/24/18 09:47)Medicationsprenatal vitamin,calcium,swlumwaw-aaow-yybez acid tablet 1 tab PO QDAY 12/13/17 [...] Spontaneous abortions 1Past PregnanciesDel. DatName GA/WeeksOutcome Route [facility] LgAnesthesDel LocaProviderFOBe ht en pr tn04/28/16Adeline 34 live birNSVD 5lbs 9 oFemale none millersbth - pre unces ylewuexLGU02 weeks:Details: BALBIR RUIZ is a 22 year old who presents for routine OB visit.OB VisitEDD CalculatorEstimated Delivery Date 07/23/18Based on LMP (certain) 10/16/17Current WG 22w 5dFetal Number 1Expected Delivery Route/PlanSVDPrenatal [...] 03/03/18Rubella IgG Antibody 26.3 IU/mL 12/27/17RPR NONREACTIVE (NONREACTIVE) 12/27/17Hep Bs Antigen Negative (Negative) 12/27/17Chlam trachomat DNA PCR Negative (Negative) 08/03/17N.gonorrhoeae DNA (PCR) Negative (Negative) 08/03/17Details: HIV:Urine Culture:Sequential Screen:NIPT Screen:ROSConstReports system reviewed and no additional complaints, except as docuGIDenies nausea, Denies vomiting, Denies abdominal painExamConstGeneral: cooperativeNutritional Appearance: well nourishedGIPalpation: soft, nontender, other (gravid)IwrdwjxLPPHS2Lfunwf Urine Glucose Negative Last Edit by Nora Lamas on 03/24/18 09:50Office Urine Protein 1+ Last Edit by Nora Lamas on 03/24/18 09:50Assessment AND PlanProblems1. Supervision of high risk in first trimester O09.91PRR EDD1 PC [place]2. High risk due to history of labor in first trimester O09.383Q0E2 ALVAREZ 07/23/18 gender surprise PC Lashay Melvin plan progesterone sgnubwytqm85-11 weekMakena information/order faxed 01/24/18 EM3. History of [...] 3DiagnosesSupervision of high risk in first trimester O09.Trimester: first trimesterHigh risk due to history of labor in first trimester O09.Trimester: first trimesterHistory of miscarriage, currently O09.299Antenatal screening encounter Z36.922 weeks gestation of Z3A. 1002 <Electronically signed by Leda CORTEZC>Date Leda CORTEZCCosigner Signature: Date (if applicable)CC: DOWNTIME REPORT Observed: 03/16/2018 Status: F Source: GRUNDY 12:18 PM [facility] REPOSITORY [facility]ITAL[facility] [address] [place] [address]Hwtakbzk ReportMR#: [id number] Acct: [id number]: SARABALBIR C Rep #: [id number]: 1995 22 From: Leandro LewisPCP: Care Physician, No Primary Status: REG CLIThis patient was seen during an EMR downtime February 27, 2018 - March 06, 2018. This patient mayhave a combination of paper and electronic documentation or all paper documentation. Alldocumentation is viewable within the e-chart portion of [facility] for each patient visit. OB ANATOMY SCAN Observed: 03/03/2018 Status: F Source: GRUNDY 7:57 AM [facility] REPOSITORY [facility]PITALImaging [address] [place] [id number] Anatomy ScanMR#: [id number] Acct: [id number]: SARABALBIR Boyd Rep #: [id number]: 1995 F 22 From: Jim Moreno MDPCP: Care Physician, No Primary Status: REG CLIStudy: OB Anatomy Scan Date of Exam: 03/03/18Exam# [id number] Ordering Dr: Phyllis Byrne MDSTUDY: SECOND AND [...] upper extremities. Normal bilateral lowerextremities. ORDER #: [id number] US/OB Anatomy ScanIMPRESSION:Single live intrauterine at 20 weeks, 1 day by ultrasound withEDD of 07/20/2018. Heart rate of 140 bpm. No suspicious sonographicfindingsElectronically Signed:Chaitanya Moreno MD at 8:25 EDTTel , Service support , BW: No Primary Care Physician; Phyllis Byrne MD Evaluation Assistant:Signed CH[employer]KER OFFICE VISIT Observed: 02/24/2018 Status: F Source: RAHUL REPORT 11:14 AM [facility] [address] [place] [address] [phone] VISITDate of Service: 02/24/18MR#: [id number] Acct: [id number]: BALBIR RUIZ Rep #: [id number]: 1995 Provider: Phyllis Byrne MDAge/Sex: 22/F [place] [facility] [place]: SignedIntakeVital Signs02/24/18 Height 5 ft 3 in02/24/18 Weight: 167 lb 8 oz02/24/18 Body Mass Index (BMI) 29.706 Blood Pressure 124/82IntakeVisit Reasons: OB - 18 WEEKSIs patient in pain?: NoAllergiesNo Known Allergies Allergy (Verified 02/14/18 12:18)Medicationsprenatal vitamin,calcium,invlovtl-vfzv-azqax acid tablet 1 tab PO QDAY 12/13/17 [...] Spontaneous abortions 1Past PregnanciesDel. DatName GA/WeeksOutcome Route [facility] LgAnestheCOel LocaProviderFOBe ht en ia tn04/28/16Adeline 34 live birNSVD 5lbs 9 oFemale none millersbth - pre unces urgtermHPIOB - 18 WEEKS:Details: BALBIR RUIZ is a 22 year old who presents for routine OB visit.OB VisitEDD CalculatorEstimated Delivery Date 07/23/18Based on LMP (certain) 10/16/17Current WG 18w 5dFetal Number 1Expected Delivery Route/PlanSVDPrenatal Specific Issue/Plansflu [...] 12/27/17Rubella IgG Antibody 26.3 IU/mL 12/27/17RPR NONREACTIVE (NONREACTIVE) 12/27/17Hep Bs Antigen Negative (Negative) 12/27/17Chlam trachomat DNA PCR Negative (Negative) 08/03/17N.gonorrhoeae DNA (PCR) Negative (Negative) 08/03/17Details: HIV:Urine Culture:Sequential Screen:NIPT Screen:ROSConstDenies fever(s)GIDenies abdominal pain, Reports as per HPIGUDenies vaginal discharge, Denies abnormal vaginal bleeding, Reports as per HPIExamConstGeneral: healthy appearing, comfortable, no acute distressGIInspection: normal to inspectionPalpation: soft, jfvmpgvumTwejmomSEZKB7Sfmvms Urine Glucose Negative Last Edit by Silvina Harley on 02/24/18 11:10Office Urine Protein Negative Last Edit by Silvina Harley on 02/24/18 11:10Assessment AND PlanProblems1. Supervision of high risk in first trimester O09.91PRR EDD1 PC [place]2. High risk due to history of labor in first trimester O09.638R7R7 ALVAREZ 07/23/18 gender surprise [place] plan progesterone ylwwoooztn40-75 weekMakena information/order faxed 01/24/18 EM3. History of [...] 02/22/2018 Status: F Source: RAHUL 2:41 PM [facility], [place] [address]NEHRGB VISITDate of Service: 02/14/18MR#: [id number] Acct: [id number]: BALBIR RUIZ Rep #: [id number]: 1995 Provider: Phyllis Byrne MDAge/Sex: /F [place] [facility] [place]WCStatus: SignedIntakeVital Signs02/14/18 Height 5 ft 3 in02/14/18 Weight: 164 lb 2 oz02/14/18 Body Mass Index (BMI) 29.005 Blood Pressure 119/79IntakeVisit Reasons: INJECTIONInterpreter Required: NoAllergiesNo Known Allergies Allergy (Verified 02/14/18 12:18)Medicationsprenatal vitamin,calcium,qnwtiygi-hpon-ldmyo acid tablet 1 tab PO QDAY 12/13/17 [HistoryConfirmed 02/14/18]hydroxyprogesterone (PF)( preserving) 250 mg/mL (1 mL) IM oil 250 mg IM QWEEK 02/07/18[History Confirmed 02/14/18]Post menopausal: NoPatient : YesNursing NoteHeather presented for a [place] injection. Patient here with sister to be [...] givenoffice contact if any questions should arise. [place] injection administer by sister in leftgluteal muscle. 1 ml was administer. Lot #[id number], expiration date 03/25/2020. Patient will nowbe getting these injections in the home setting.02/22/18 1441 <Electronically signed by Phyllis Byrne MD>Date Phyllis Byrne MDCosigner Signature: Date (if applicable)CC: OFFICE VISIT REPORT Observed: 02/15/2018 Status: F Source: RAHUL 4:50 AM [facility] [place] [address]IWSGEF VISITDate of Service: 02/07/18MR#: [id number] Acct: [id number]: BALBIR RUIZ Rep #: [id number]: 1995 Provider: Phyllis Byrne MDAge/Sex: 22/F [facility]tatus: SignedIntakeVital Signs02/07/18 Height 5 ft 3 in02/07/18 Weight: 165 lb 2 oz02/07/18 Body Mass Index (BMI) 29.205 Blood Pressure 120/64IntakeVisit Reasons: PROGESTERONE INJECTION -16 WEEKSInterpreter Required: NoAllergiesNo Known Allergies Allergy (Verified 02/14/18 12:18)Medicationsprenatal vitamin,calcium,tptuyuhk-nisz-bljtm acid tablet 1 tab PO QDAY 12/13/17 [HistoryConfirmed 02/14/18]hydroxyprogesterone (PF)( preserving) 250 mg/mL (1 mL) IM oil 250 mg IM QWEEK 02/07/18[History Confirmed 02/14/18]Post menopausal: NoPatient : YesOffice ProceduresInjectionsProcedure performed by: Linda Narayanan number: [id number]: SookasaExpire date: 03/25/20Dose of injection: 1 mLSite of injection: right gluteal IMMedication Given: YesAdditional Details: Patient tolerated Cherelle injection well.02/15/18 0450 <Electronically signed by Phyllis Byrne MD>Date Phyllis Byrne [facility] – SULPHURosigner Signature: Date (if applicable)CC: CHAMPAGNE MAKER OFFICE VISIT Observed: 01/24/2018 Status: F Source: RAHUL REPORT 12:16 PM [facility] REPOSITORY [facility] [place] [facility] [address], [place] [phone] VISITDate of Service: 01/24/18#: [id number] Acct: [id number]: BALBIR RUIZ Rep #: [id number]: 1995 Provider: JOEL eLvy/Sex: 22/F [place] [facility] [place]WC[place]: SignedIntakeVital Signs01/24/18 Height 5 ft 3 in01/24/18 Weight: 162 lb 8 oz01/24/18 Body Mass Index (BMI) 28.805 Blood Pressure 128/74IntakeVisit Reasons: 14 weeksInterpreter Required: NoAccompanied by: husbandIs patient in pain?: NoAllergiesNo Known Allergies Allergy (Verified 01/24/18 08:49)Medicationsprenatal vitamin,calcium,yxurykow-fgne-dansn acid tablet 1 tab PO QDAY 12/13/17 [HistoryConfirmed 01/24/18]Last Menstral Period: 10/16/17Zika: Zika virus screening: NegativeBreastfeeding: NoPFSHPFSHSocial HistorySmoking Status: Former smokersecond hand exposure: Noalcohol intake: neversubstance use type: does not usewhat type of physical activity do you participate in: noneadditional social history: CodyPregancy HistoryGravida 3 Elective abortionsHx Para 1 Spontaneous abortions 1Past PregnanciesDel. DatName GA/WeeksOutcome Route [facility]gAnestheWis[facility] LocaProviderFOBe ht en ia tn04/28/16Adeline 34 live birNSVD 5lbs 9 oFemale none millersbth - pre unces zdlbzkdSUE41 weeks:Details: BALBIR RUIZ is a 22 year [...] well. Nausea improved. Denies CTX, LOF, VB Leda Rhodell, [employer]MICAL TANK WORKER-C on 01/24/18Visit Date: 12/27/17no vb cramping doing [...] 12/27/17Rubella IgG Antibody 26.3 IU/mL 12/27/17RPR NONREACTIVE (NONREACTIVE) 12/27/17Hep Bs Antigen Negative (Negative) 12/27/17Chlam trachomat DNA PCR Negative (Negative) 08/03/17N.gonorrhoeae DNA (PCR) Negative (Negative) 08/03/17Details: HIV:Urine Culture:Sequential Screen:NIPT Screen:LxpdgtlNHQED7Hyxxge Urine Glucose Negative Last Edit by Linda Narayanan on 01/24/18 08:55Office Urine Protein Negative Last Edit by Linda Narayanan on 01/24/18 08:55Assessment AND PlanProblems1. High risk due to history of labor in first trimester O09.782B8T0 ALVAREZ 07/23/18 PC [place] plan progesterone injections 16-36 weeks2. Supervision of high risk in first trimester O09.91PRR EDD1 PC Lashay [place]3. History of miscarriage, currently O09.2994. screening encounter Z36.9NT on 01/09/18 WNL5. 14 weeks gestation of Z3A.14PlanOrders placed: anatomy US 19-20 weeksWill do 2nd SSQ on 02/06Reviewed of labor precautions, movement/kick countsACOG trimester education reviewed and updatedSee problem list details for updated plan of careGestational age appropriate handout givenRTO: 4 weeksOrdersOrders:CodingLevel of Care CodeOB RoutineDiagnosesHigh risk due to history of labor in first trimester O09.211Trimester: first trimesterSupervision of high risk in first trimester O09.91Trimester: first trimesterHistory of miscarriage, currently O09.299Antenatal screening encounter Z36.914 weeks gestation of Z3A. 1216 <Electronically signed by Leda Lopez NP-C>Date Leda Lopez CHEMICAL TANK WORKER-CCosigner Signature: Date (if applicable)CC: CHAMPAGNE MAKER OFFICE VISIT Observed: 01/04/2018 Status: F Source: RAHUL REPORT 6:21 AM [facility] [address] [place] [address] [phone] VISITDate of Service: 12/27/17MR#: [id number] Acct: [id number]: BALBIR RUIZ Rep #: [id number]: 1995 Provider: Phyllis Walton/Sex: 22/F [place] [facility] [place]: SignedIntakeVital Signs12/27/17 Height 5 ft 3 in12/27/17 Weight: 162 lb 8 oz12/27/17 Body Mass Index (BMI) 28.804 Blood Pressure 137/79IntakeVisit Reasons: (OB)Clergy Member Required: NoAccompanied by: husbandIs patient in pain?: NoAllergiesNo Known Allergies Allergy (Verified 12/27/17 08:35)Medicationsprenatal vitamin,calcium,zyzwlcne-nzrh-sbhap acid tablet 1 tab PO QDAY 12/13/17 [HistoryConfirmed 12/27/17]Last Menstral Period: 10/16/17Zika: Zika virus screening: NegativePFSHPFSHSocial HistorySmoking Status: Former smokersecond hand exposure: Noalcohol intake: neversubstance use type: does not usewhat type of physical activity do you participate in: noneadditional social history: CodyPregancy HistoryGravida 3 Elective abortionsHx Para 1 Spontaneous abortions 1Past PregnanciesDel. DatName GA/WeeksOutcome Route [facility] WeigInfant GLabor LgAnesthesDel LocaProviderFOBe ht en ia [...] 12/27/17Rubella IgG Antibody 26.3 IU/mL 12/27/17RPR NONREACTIVE (NONREACTIVE) 12/27/17Hep Bs Antigen Negative (Negative) 12/27/17Chlam trachomat DNA PCR Cancelled 12/13/17N.gonorrhoeae DNA (PCR) Cancelled 12/13/17Details: HIV:Urine Culture:Sequential Screen:NIPT Screen:YrjnmbwDMIFY5Dsohxw Urine Glucose Negative Last Edit by Linda Narayanan on 12/27/17 08:39Office Urine Protein Negative Last Edit by Linda Narayanan on 12/27/17 08:39Assessment AND PlanProblems1. High risk due to history of labor in first trimester O09.787A6C7 ALVAREZ 07/23/18 PC Lashay Melvin plan progesterone injections 16-36 weeks2. History of miscarriage, currently O09.2993. Supervision of high risk in first trimester O09.91 EDD1 PC Lashay CodyPlanOrders placed: noneACOG trimester education reviewed and updated.see problem list details for updated plan management information.GA appropriate handout given.OrdersOrders:CodingLevel of Care CodeOB RoutineDiagnosesHigh risk due to history of labor in first trimester O09.211Trimester: first trimesterHistory of miscarriage, currently O09.299Supervision of high risk in first trimester O09.Trimester: first vkqaxrirq79/11/18 0621 <Electronically signed by Phyllis Byrne MD>Date Phyllis Byrne MDCosigner Signature: Date (if applicable)CC: CBC W/DIFF, AUTOMATED Collected: 12/27/2017 Status: F Source: RAHUL 8:58 AM [facility] REPOSITORY TYPE CODE TESTS RESULT OUT OF [...] Comment: IG% - Immature Granulocytes (promyelocytes, myelocytes and metamyelocytes) > 1% indicates that a LEFT SHIFT is Present. LAB L100.2620 Normal 2.0-7.7 X10 3/uL Absolute Neut 6.8 LAB L100.2720 Normal 0.83-4.51 X10 3/ul Absolute Lymph 1.78 Performed By: #### L100.0100, B101.7450 #### [facility] [address] [place], [place], [address] TYPE AND SCREEN Collected: 12/27/2017 Status: F Source: GRUNDY 8:58 AM [facility] REPOSITORY Order Comment: Reason for Type AND Screen/Red Cells: TYPE CODE TESTS RESULT OUT OF RANGE REFERENCE UNITS LAB B10.0800 Normal BLOOD A TYPE GEL POSITIVE LAB B100.4000 Normal Antibody NEGATIVE Screen Performed By: #### L100.0100, B101.7450 #### [facility] [address] [place], [place], [id number] RUBELLA IGG Collected: 12/27/2017 Status: F Source: GRUNDY 8:58 AM [facility] REPOSITORY TYPE CODE TESTS RESULT OUT OF RANGE REFERENCE UNITS LAB L509.4000 Normal IU/mL Rubella 26.3 IgG Result Comment: Antibody results Interpretation of Immune Status < 5 IU/ml Presumed Non-immune 5 - < 10 IU/ml Equivocal > or = 10 IU/ml Presumed Immune Performed By: #### L509.4000, L3890.6005 #### [facility] [address] [place] [address]. [place], [address] #### L3100.0390 #### [facility] (refer to report for specific site) refer to report for address and phone number HIV - WCH Collected: 12/27/2017 Status: F Source: GRUNDY 8:58 AM [facility] REPOSITORY TYPE CODE TESTS RESULT OUT OF RANGE REFERENCE UNITS LAB L3890.6005 Normal Nonreactive HIV - WC Non-Reactive Performed By: #### L509.4000, L3890.6005 #### [facility] [address] [place] [address], [address] #### L3100.0390 #### [facility] (refer to report for specific site) refer to report for address and phone number HEPATITIS B SURFACE Collected: 12/27/2017 Status: F Source: GRUNDY AG 8:58 AM [facility] REPOSITORY TYPE CODE TESTS RESULT OUT OF RANGE REFERENCE UNITS LAB L3100.0400 Normal Negative HB Negative SURF AG Result Comment: Performed at: - [facility] [address] [id number] Senior Clinical Data Analyst: Costa Hawkins PhD, Phone: [phone] Performed By: #### L509.4000, L3890.6005 #### [facility] [address] [place] [address], [address] #### L3100.0390 #### [facility] (refer to report for specific site) refer to report for address and phone number RAPID PLASMIN REAGIN Collected: 12/27/2017 Status: F Source: RAHUL (RPR) 8:58 AM [facility] REPOSITORY TYPE CODE TESTS RESULT OUT OF REFERENCE UNITS RANGE LAB L700.5000 Normal NONREACTIVE RPR NONREACTIVE Performed By: #### L700.5000 #### [facility] [address] [place], [address] CHAMPAGNE MAKER OFFICE VISIT Observed: 12/13/2017 Status: F Source: RAHUL REPORT 9:10 PM [facility] REPOSITORY [facility] [address] [place] [address] [phone] VISITDate of Service: 12/13/17MR#: [id number] Acct: [id number]: BALBIR RUIZ Rep #: [id number]: 1995 Provider: Phyllis Byrne MDAge/Sex: 22/F [place] [facility] [place]: SignedIntakeVital Signs12/13/17 Height 5 ft 3 in12/13/17 Weight: 160 lb 4 oz12/13/17 Body Mass Index (BMI) 28.303 Blood Pressure 121/66IntakeVisit Reasons: NEW OB LMP 10/16/17Interpreter Required: NoAccompanied by: Family / OtherIs patient in pain?: NoAllergiesNo Known Allergies Allergy (Verified 01/19/15 06:30)Medicationsprenatal vitamin,calcium,zbpdoyrb-vugn-ddtec acid tablet 1 tab PO QDAY 12/13/17 [HistoryConfirmed 12/13/17]Last Menstral Period: 10/16/17PFSHPFSHSocial HistorySmoking Status: Former smokersecond hand exposure: Noalcohol intake: neversubstance use type: does not usewhat type of physical activity do you participate in: noneadditional social history: CodyPregancy HistoryGravida 2 Elective abortionsHx Para 1 Spontaneous abortionsPast PregnanciesDel. DatName GA/WeeksOutcome Route [facility] WeigInfant GLabor LgAnesthesDel LocaProviderFOBe ht en ia [...] Disability/Autism: Other, Recurrent Loss/Stillbirth:Other, Other Structural Defect: Other, Other Genetic Disease: Other, Maternal MetabolicDisorder: OtherInfection [...] disease, Auto-immune disorder, Kidneydisease/UTI, Neurologic/epilepsy, Psychiatric, Depression/ depression,Hepatitis/liver disease, Varicosities/phlebitis, Thyroid dysfunction, Trauma/domestic violence,History of blood transfusions, D (Rh) Sensitized, Pulmonary (e.g.,TB,Asthma), Seasonalallergies, Drug/latex allergies/reactions, Breast, Quality Eng surgery, Operations/hospitalizations,Anesthetic complications, History of abnormal pap, Uterine anomaly/laury, Infertility,Anti-retroviral treatment, Relevant family history, OtherACOGFirst TrimesterFirst Trimester: Desire for , Alcohol, Tobacco [...] and no additional complaints, except as docuEndoReports fatigue, Reports system reviewed and no additional complaints, [...] bladder normal to palpation, normal bimanual exam, uterusnon-tender, otherBimanual Exam- Adnexa, other: adnexae non-tenderSkinGeneral: no rashes or lesions notedNeuroMotor: muscle tone normal throughout, no movement abnormalities notedExtremGeneral: normal to inspection, full ROMAssessment AND PlanProblems1. High risk due to history of labor in first trimester O09.923B7Y9 ALVAREZ 07/23/18 PC [place] Melvin plan progesterone injections 16-36 weeksPlanPatient oriented [...] of labor in first trimester O09.211Trimester: first cwlfqzovt93/20/182109 <Electronically signed by Phyllis Byrne MD>Date Phyllis Byrne MDCosigner Signature: Date (if applicable)CC: Observed: 12/13/2017 Status: F Source: RAHUL CULTURE, URINE 5:43 PM [facility] REPOSITORY Urine CultureCulture exhibits no growth. Performed By: #### M100.0650 ####[facility] [address] [place], [address] CT/NG [facility] BY PCR Collected: 08/03/2017 Status: F Source: RAHUL 10:10 PM [facility] REPOSITORY TYPE CODE TESTS RESULT OUT OF RANGE REFERENCE UNITS LAB L8200.2100 Normal Negative Negative Chlam Trac PCR LAB L8200.2200 Normal Negative NG Negative by PCR Performed By: #### L8200.2000 #### [facility] [address] [place], [address] Observed: 08/03/2017 Status: F Source: RAHUL CULTURE, URINE 10:10 PM [facility] REPOSITORY Urine CultureBelow infection level. ORGANISM 1: Mixed Gram Positive OrganismsColony Count 1000-10,000MIX CULTURE Mixed contaminants. Submit a new specimen if indicated. Performed By: #### M100.0650 ####[facility] [address] [place], [address] ALLERGIES ALLERGIES DATE TYPE / CODE NAME / CODE REACTION SEVERITY SOURCE 06/26/2018 Drug No Known Unknown Rahul Allergy/023947523(S Allergies/F[address] [place]) [address](RXNORM) Hospital Repository 01/19/2015 Drug No Known Rahul Allergy/989503071(S Allergies/F[address]) [address](RXNORM) Hospital Repository Miscellaneous No Known Drug Moderate Ata Pomerene Allergy/380455106(S Allergies ([facility]) Modifier) Hospital (Qualifier Repository Value) ENCOUNTERS ENCOUNTERS ADMIT/DISCHARGE ACCOUNT ADMITTING ENCOUNTER LOCATION SOURCE NUMBER CLASS 06/26/2018 [id number] Ambulatory [facility] ing:LABSPEC Repository 06/26/2018/06/26/20 [id number] Ambulatory BMSBuilding:B Rahul [facility] Repository 06/13/2018/06/13/20 [id number] Ambulatory BMSBuilding:B Acampo 18 [facility] Repository 05/30/2018/05/30/20 [id number] Ambulatory BMSBuilding:B Rahul 18 [facility] Repository 05/16/2018/05/16/20 [id number] Ambulatory BMSBuilding:B Rahul 18 [facility] Repository 04/27/2018 [id number] Ambulatory [facility] ing:LAB Repository 04/18/2018/04/18/20 [id number] Ambulatory BMSBuilding:B Rahul 18 [facility] Hospital Repository 04/13/2018/04/13/20 [id number] Ambulatory BMSBuilding:B Acampo 18 [facility] Hospital Repository 03/24/2018 [id number] [facility] Repository 03/24/2018/03/24/20 [id number] Ambulatory BMSBuilding:B Rahul 18 [facility] Hospital Repository 03/03/2018 [id number] [facility] ing:OPUS Repository 02/24/2018/02/25/20 [id number] Ambulatory BMSBuilding:B Acampo 18 [facility] Repository 02/14/2018/02/15/20 [id number] Ambulatory BMSBuilding:B Acampo 18 [facility] Repository 02/07/2018/02/08/20 [id number] Ambulatory BMSBuilding:B Acampo 18 [facility] Repository 01/24/2018/01/25/20 [id number] Ambulatory BMSBuilding:B Rahul 18 [facility] Repository 01/09/2018/01/10/20 [id number] Ambulatory Building:[address] Repository 12/27/2017 [id number] [facility]LAB Repository 12/27/2017 [id number] Ambulatory BMSBuilding:B Rahul MS.[facility] Hospital Repository 12/27/2017/12/28/19 [id number] Ambulatory BMSBuilding:B Acampo 18 [facility] Repository 12/13/2017 [id number] Ambulatory [facility] Hospital[facility] Hospital ing:LABSPEC Repository 12/13/2017/12/14/19 [id number] Ambulatory BMSBuilding:B Acampo 18 [facility] Repository 08/17/2017 [id number] VALENTINA WINKLER Ambulatory [facility] Repository 08/03/2017 [id number] [facility] Repository 07/22/2017 [id number] VALENTINA WINKLER Ambulatory [facility] Repository 07/22/2017 [id number] VALENTINA WINKLER Inpatient [facility] Repository PAYERS PAYERS ENCOUNTER GUARANTOR PAYER SUBSCRIBER SOURCE 06/26/2018 BALBIR C Primary BALBIR C Acampo [id number] Insurance:FUAD TAY: [facility] [id number] [facility] Number: Repository [place] [address]Npc: [id number] Date:5766-38-54QJ BOX () [address] [address]NP: 06/26/2018 Secondary NOT GIVENUNK Rahul Insurance:SELF PAY [facility] Number: Effective Repository Date:2018-06-26 06/26/2018 BALBIR C Primary BALBIR C Acampo [id number] Insurance:FUAD TAYB: [facility] [id number] [facility] Number: Repository [place] [address]Wmg: [id number] Date:4233-27-65LB BOX () [address] [address]HI: 06/26/2018 Secondary NOT GIVENUNK Rahul Insurance:SELF PAY [facility] Number: Effective Repository Date:2018-03-24 06/13/2018 BALBIR C Primary BALBIR C Acampo [id number] Insurance:FUAD TAYNolvia: [facility] [id number] [facility] Number: [place]ository [place] [address]Kls: [id number] Date:8517-62-15XE BOX () [address] [address]JE: 06/13/2018 Secondary NOT GIVENUNK Acampo Insurance:SELF PAY [facility] Number: Effective Repository Date:2018-06-13 05/30/2018 BALBIR C Primary BALBIR C Rahul [id number] Insurance:FUAD TAY: [facility] [id number] [facility] Number: Repository [place] [address]Lwu: [id number] Date:2051-61-45ED BOX (HP) [address]JennaRYAN [place] [address]OT: 05/30/2018 Secondary NOT GIVENUNK Rahul Insurance:SELF PAY [facility] Number: Effective Repository Date:2018-05-11 05/16/2018 BALBIR C Primary BALBIR C Acampo [id number] Insurance:FUAD TAYB: [facility] [id number] [facility] Number: Repository [place] [address]Cvp: [id number] Date:9002-16-48TC BOX () 620JennaB[facility] C[facility] [place] [address]RT: 05/16/2018 Secondary NOT GIVENUNK Acampo Insurance:SELF PAY [facility] Number: Effective Repository Date:2018-05-16 04/27/2018 BALBIR C Primary BALBIR C Rahul [id number] Insurance:FUAD ATYB: [facility] [id number] [facility] Number: Repository [place] [address]Zyw: [id number] Date:1039-48-74JT BOX (HP) [address]JennaRY[address] [place] [address]AZ: 04/27/2018 Secondary NOT GIVENUNK Rahul Insurance:SELF PAY [facility] Number: Effective Repository Date:2018-04-27 04/18/2018 BALBIR C Primary BALBIR C Acampo [id number] Insurance:FAUD TAYB: [facility] [id number] [facility] Number: Repository [place] [address]Swx: [id number] Date:1985-39-83YB BOX (HP) [address]ARTIRYAN [place] [address]FM: 04/18/2018 Secondary NOT GIVENUNK Acampo Insurance:SELF PAY [facility] Number: Effective Repository Date:2018-04-18 04/13/2018 BALBIR C Primary BALBIR C Rahul [id number] Insurance:FUAD DOWNS: [facility] [id number] [facility] Number: Repository [place] [address]Qcg: [id number] Date:0708-78-54GY BOX () [address]RYAN SANCHEZ [address]IT: 04/13/2018 Secondary NOT GIVENUNK Rahul Insurance:SELF PAY [facility] Number: Effective Repository Date:2018-04-13 03/24/2018 BALBIR C Primary BALBIR C Acampo [id number] Insurance:FUAD TAY: [facility] [id number] [facility] Number: Repository [place] [address]Iwf: [id number] Date:7397-09-21DW BOX () [address] [place] [address]JU: 03/24/2018 Secondary NOT GIVENUNK Acampo Insurance:SELF PAY [facility] Number: Effective Repository Date:2018-03-24 03/24/2018 BALBIR C Primary BALBIR C Rahul [id number] Insurance:FUAD DOWNS: [facility] [id number] [facility] Number: Repository [place] [address]Ffv: [id number] Date:8571-74-18WM BOX () 620JennaM[facility] HOSPITALRYAN BROWN [address]JX: 03/24/2018 Secondary NOT GIVENUNK Rahul Insurance:SELF PAY [facility] Number: Effective Repository Date:2018-03-24 03/03/2018 BALBIR C Primary BALBIR C Rahul [id number] Insurance:FUAD TAY: [facility] [id number] [facility] Number: Repository [place] [address]Slx: [id number] Date:7635-19-44NQ BOX () [address] [place] [address]GT: 03/03/2018 Secondary NOT GIVENUNK Acampo Insurance:SELF [facility] Effective Repository Date:2018-02-24 02/24/2018 BALBIR C Primary BALBIR C Acampo [id number] Insurance:ANTHEMPolicy SCOTTDOB: Count includes the [facility] Number: [id number] Health [facility], [id number] [place]ository [place] [address]Ygz: ve Date:1219-70-56JG [address], [place] () [address]QD: 02/24/2018 Secondary BALBIR C Acampo Insurance:MEDICAIDPoli SCOTTDOB: Community cy Number: [id number] Hospital [id number] Repository Date:2018-01-24 02/24/2018 Tertiary NOT GIVENUNK Acampo Insurance:SELF PAY [facility] Number: Effective Repository Date:2018-02-24 02/14/2018 BALBIR C Primary BALBIR C Acampo [id number] Insurance:MEDICAIDPoli SCOTTDOB: [facility] cy Number: [id number] Health Anson, [id number] [place]ository [place] [address]Ywx: Date:2018-02-07 () 02/14/2018 Secondary NOT GIVENUNK Acampo Insurance:SELF PAY [facility] Number: Effective Repository Date:2018-02-14 02/07/2018 BALBIR C Primary BALBIR C Rahul [id number] Insurance:ANTHEMPolicy SCOTTDOB: Count includes the [facility] Number: [id number] Health Anson, [id number] [place]ository [place] [address]Crs: ve Date:7761-32-34TH BOX DONNA [place] () [address]FB: 02/07/2018 Secondary NOT GIVENUNK Rahul Insurance:SELF PAY [facility] Number: Effective Repository Date:2018-02-07 01/24/2018 BALBIR C Primary BALBIR C Acampo [id number] Insurance:ANTHEMPolicy SCOTTDOB: [facility] Number: [id number] Health Anson, [id number] Repository [place] [address]Mrl: ve Date:5746-23-71SS BOX [place]NA DONALDSON () [address]FF: 01/24/2018 Secondary NOT GIVENUNK Acampo Insurance:SELF PAY [facility] Number: Effective Repository Date:2018-01-24 01/09/2018 BALBIR Primary BALBIR [facility] SCOTTDOB: Insurance:ANTHEMPolicy SCOTTDOB: [facility] Number: [id number] [id number] [facility], ve Date: [place], [place] [address]Zqk: [place] [address] () 12/27/2017 BALBIR C Primary BALBIR C Acampo [id number] Insurance:ANTHEMPolicy SCOTTDOB: [facility] Number: [id number] Health Anson, [id number] Repository [place] [address]Rbd: ve Date:6957-79-02TH BOX DONNA DONALDSON () [address]HD: 12/27/2017 Secondary NOT GIVENUNK Acampo Insurance:SELF PAY [facility] Number: Effective Repository Date:2017-12-27 12/27/2017 BALBIR Primary BALBIR Rahul [id number] Insurance:ANTHEMPolicy SCOTTDOB: [facility] Number: [id number] Health Anson, [id number] Repository [place] [address]Faz: ve Date:1061-32-22PA BOX DONNA DONALDSON () [address]FW: 12/27/2017 Secondary NOT GIVENUNK Acampo Insurance:SELF PAY [facility] Number: Effective Repository Date:2017-12-27 12/27/2017 BALBIR Primary BALBIR Acampo [id number] Insurance:ANTHEMPolicy SCOTTDOB: Count includes the [facility] Number: [id number] Health Anson, [id number] [place]ository [place] [address]Qcz: ve Date:4272-33-90UG [address] [place] [address] () [address]OG: 12/27/2017 Secondary NOT GIVENUNK Rahul Insurance:SELF PAY [facility] Number: Effective Repository Date:2017-12-27 12/13/2017 BALBIR Primary BALBIR Rahul [id number] Insurance:ANTHEMPolicy SARADOB: [address] Number: [id number] Hospital [address]Tzw: (357) [id number] Repository [phone] () ve Date:7241-47-22PB [address] [place] [address]ZE: 12/13/2017 Secondary NOT GIVENUNK Rahul Insurance:SELF PAY [facility] Number: Effective Repository Date:2017-12-13 12/13/2017 BALBIR Primary BALBIR Rahul [id number] Insurance:ANTHEMPolicy SCOTTDOB: [address] Number: [id number] Hospital [address]Nri: 330 [id number] Repository [phone] () ve Date:4435-95-09NQ [address] [place] [address]GP: 12/13/2017 Secondary NOT GIVENUNK Acampo Insurance:SELF PAY [facility] Number: Effective Repository Date:2017-12-13 08/17/2017 BALBIR Primary BALBIR Ata Garnett SARADOB: Insurance:ANTHEM MAY RUIZDOB: [facility] [id number] [employer] [id number] Repository [address] [place] [address] Number: 257[facility] [address]Wdc: (330 [id number] [place] [id number] [phone] (HP) Date:Plan Name: 08/03/2017 BALBIR Primary Insurance:SELF BALBIR SCOTTUNK Rahul [id number] CR PAY INS[address]ANCE[address] Number: [facility] [address]Uwb: (330) Date: Repository [phone] (HP) 07/22/2017 BALBIR Primary BALBIR Boyd RUIZB: Insurance:TIFFANY ATYB: [facility] [employer] [id number] [facility] [address] OUTPAT[address] Repository [address] [place] [address] Number: 257[facility] [address]Voh: (330) [id number] [place] [phone] (HP) Date:Plan Name: 07/22/2017 BALBIR Primary BALBIRHER Ata Garnett MAGGIB: Insurance:TIFFANY RUIZB: [facility] [id number] [facility] [address] INPAT[address]Policy [address] Repository [address] [place] [address] Number: 257[facility] [address]Nkv: (330) [id number] [place] [phone] (HP) Date:Plan Name:B2
[2018-06-26 15:37] LABS: Group B Strep DNA By PCR Negative (Negative); Internal Control PASS; Probe Check PASS; Specimen Processing Control PASS
== END ==
PROVIDERS: Visit Provider Nurse Practitioner Women's Health
DX: O09.93 Supervision of high risk pregnancy, unspecified, third trimester (principal)
CPT/HCPCS: 87081; 87653

== ENCOUNTER 2018-07-12 13:25 | Inpatient (IN) | payer MEDICAID, SELFPAY ==
[2018-07-12] VITALS (15 sets, daily range): BP systolic 123–148; BP diastolic 52–87; PULSE 83–126; RESP 14–20; TEMP 36.6–37.1; O2SAT 96–100; BMI 37.7
[2018-07-12] MEDS: Lactated Ringers 1,000 ML 125 ML IV (11:20)
[2018-07-12] MEDS: Terbutaline 1 MG/ML Vial 0.25 MG SC (13:40)
[2018-07-12 13:44] LABS: Hematocrit 39.4 % (37-47); Hemoglobin 12.9 g/dl (12.0-15.0); Mean Corp Hgb Conc 32.7 g/gl (32-36); Mean Corpuscular Hgb 29.5 pg (27.0-32.0); Mean Platelet Vol. 11.2 fl (6.2-12.0); Platelet Count 231 K/mm3 (150-450); RBC Distribution Width CV 13.3 % (11.6-14.6); RBC Distribution Width SD 43.6 fl (35.1-43.9); Red Blood Count 4.38 M/mm3 (4.2-5.4); White Blood Count 10.8 K/mm3 (4.4-11.0)
[2018-07-12 13:47] LABS: Scan Indicated on CBC? Y/N NO
[2018-07-12] MEDS: Lactated Ringers 1,000 ML 999 ML IV (14:19)
[2018-07-12] MEDS: Sodium Citrate/Citric Acid 30 ML UDC PO (14:36)
[2018-07-12] MEDS: Cefazolin 2 GM in 0.9% Normal Saline 100 ML IV (14:42)
[2018-07-12] MEDS: Oxytocin 30 units/NS 500 ml 30 UNITS/500 ML IV.SOLN 167 UNITS IV (15:06)
[2018-07-12] MEDS: Lactated Ringers 1,000 ML 100 ML IV (15:45)
--- NOTE | 2018-07-12 21:18 | PCM.HP.OB ---
- Problem List (1) Unspecified contraceptive management Status: Acute Comment: Mirena IUD 6 wk pp- NO PA REQUIRED (2) Status: Acute Qualifiers: Comment: Pregancy History 3 Elective abortions Hx Para 1 Spontaneous abortions 1 Hx # Term Pregnancies Ectopic pregnancies Hx # Pregnancies Multiple births # of living children Past Pregnancies Del. Date Name GA/Weeks Outcome Route Bth Weight Infant Gen Labor Lgth Anesthesia Del Locatn Provider FOB 04/28/[id number] - [id number] [address] [facility] (3) screening encounter Status: Acute Comment: NT on 01/09/18 WNL (4) History of miscarriage, currently Status: Acute (5) Supervision of high-risk Status: Acute Qualifiers: Comment: PRR EDD1 PC Lashay Melvin (6) High risk due to history of labor Status: Acute Qualifiers: Comment: ALVAREZ 07/23/18 gender surprise PC Lashay Melvin plan progesterone injections 16-36 week Cherelle information/order faxed 01/24/18 EM History Date of Admission: 07/12/18 Final ALVAREZ: 07/23/18 Gestational age: 38 Weeks and 3 Days History of this : This is a 23 year-old, at 38 weeks gestational age presents with breech presentation and oligohydramnios Allergies No Known Allergies Allergy (Verified 07/11/18 08:53) Home Medications: Home Medications vitamin,calcium,vpxdpkab-jidh-kjmea acid tablet 1 tab PO QDAY 12/13/17 Smoking Status: Former smoker Alcohol: None Number of Fetus(es): 1 Heart Tracin History Past Pregnancies: Pregancy History 3 Elective abortions Hx Para 1 Spontaneous abortions 1 Hx # Term Pregnancies Ectopic pregnancies Hx # Pregnancies Multiple births # of living children Past Pregnancies Del. Date Name GA/Weeks Outcome Route Bth Weight Infant Gen Labor Lgth Anesthesia Del Locatn Provider FOB 04/28/16 [place] 34 live - 5lbs 9 ounces Female [facility] Expected Infant Delivery Method: Scheduled Section Review of Systems Constitutional: Denies: Fever, Malaise Eyes: Denies: Blurred vision, Vision Change HEENT: Denies: Head Aches, Visual Changes Cardiovascular: Denies: Chest Pain, Palpitations Respiratory: Denies: Cough, Shortness of Breath, Wheezing Gastrointestinal: Denies: Abdominal Pain, Diarrhea, Nausea, Vomiting Genitourinary: Denies: Dysuria, Hematuria Musculoskeletal: Denies: Joint Pain, Muscle pain Skin: Denies: Lesions, Rash Neurological: Denies: Blurred vision, Focal weakness, Headaches Psychiatric: Denies: Anxiety, Depression Endocrine: Denies: Heat/ Cold Intolerance Hematologic/ Lymphatic: Denies: Easy Bruising, Easy Bleeding Physical Exam Vitals: Vital Signs Temp Pulse Resp BP Pulse Ox 97.9 F 110 H 18 134/87 H 98 07/12/18 18:58 07/12/18 18:58 07/12/18 18:58 07/12/18 18:58 07/12/18 18:58 General: Alert, Cooperative, No apparent distress HEENT: Atraumatic, Normocephalic. Negative for: Thyromegaly, Lymphadenopathy Cardiovascular: Regular rate Lungs: Normal air movement Abdomen: Soft, Non Tender, Gravid Neurological: Deep Tendon Reflexes 2+/4 and Symmetrical, Neuro grossly intact. Negative for: Clonus COORDINATOR OF HEALTH SERVICES: Normal external genitalia. Negative for: Vulvar lesions Estimated gestational size: Appropriate for gestational size Presentation: Cephalic Assessment/Plan All Active Problems (Last Reviewed 07/11/18 @ 08:53 by Michelle Raymond) Unspecified contraceptive management (Acute) (Acute) screening encounter (Acute) History of miscarriage, currently (Acute) Supervision of high-risk (Acute) High risk due to history of labor (Acute) This is a 23 year-old, at 38 weeks gestational age breech and oligo plan LTCS
--- NOTE | 2018-07-12 21:23 | HP.PCM_ITS ---
- Problem List (1) Unspecified contraceptive management Status: Acute Comment: Mirena IUD 6 wk pp- NO PA REQUIRED (2) Status: Acute Qualifiers: Comment: Pregancy History 3 Elective abortions Hx Para 1 Spontaneous abortions 1 Hx # Term Pregnancies Ectopic pregnancies Hx # Pregnancies Multiple births # of living children Past Pregnancies Del. Date Name GA/Weeks Outcome Route Bth Weight Infant Gen Labor Lgth Anesthesia Del Locatn Provider FOB 04/28/[id number] - [id number] 9 ouncesFemale [facility] (3) screening encounter Status: Acute Comment: NT on 01/09/18 WNL (4) History of miscarriage, currently Status: Acute (5) Supervision of high-risk Status: Acute Qualifiers: Comment: PRR EDD1 PC Lashay Melvin (6) High risk due to history of labor Status: Acute Qualifiers: Comment: ALVAREZ 07/23/18 gender surprise PC Lashay Melvin plan progesterone injections 16-36 week Cherelle information/order faxed 01/24/18 EM History Date of Admission: 07/12/18 Final ALVAREZ: 07/23/18 Gestational age: 38 Weeks and 3 Days History of this : This is a 23 year-old, at 38 weeks gestational age presents with breech presentation and oligohydramnios Allergies No Known Allergies Allergy (Verified 07/11/18 08:53) Home Medications: Home Medications vitamin,calcium,nzwspehl-owur-cdjjp acid tablet 1 tab PO QDAY 12/13/17 Smoking Status: Former smoker Alcohol: None Number of Fetus(es): 1 Heart Tracin History Past Pregnancies: Pregancy History 3 Elective abortions Hx Para 1 Spontaneous abortions 1 Hx # Term Pregnancies Ectopic pregnancies Hx # Pregnancies Multiple births # of living children Past Pregnancies Del. Date Name GA/Weeks Outcome Route Bth Weight Infant Gen Labor Lgth Anesthesia Del Locatn Provider FOB 04/28/16 [place] 34 live - 5lbs 9 ounces Female [facility] Expected Infant Delivery Method: Scheduled Section Review of Systems Constitutional: Denies: Fever, Malaise Eyes: Denies: Blurred vision, Vision Change HEENT: Denies: Head Aches, Visual Changes Cardiovascular: Denies: Chest Pain, Palpitations Respiratory: Denies: Cough, Shortness of Breath, Wheezing Gastrointestinal: Denies: Abdominal Pain, Diarrhea, Nausea, Vomiting Genitourinary: Denies: Dysuria, Hematuria Musculoskeletal: Denies: Joint Pain, Muscle pain Skin: Denies: Lesions, Rash Neurological: Denies: Blurred vision, Focal weakness, Headaches Psychiatric: Denies: Anxiety, Depression Endocrine: Denies: Heat/ Cold Intolerance Hematologic/ Lymphatic: Denies: Easy Bruising, Easy Bleeding Physical Exam Vitals: Vital Signs Temp Pulse Resp BP Pulse Ox 97.9 F 110 H 18 134/87 H 98 07/12/18 18:58 07/12/18 18:58 07/12/18 18:58 07/12/18 18:58 07/12/18 18:58 General: Alert, Cooperative, No apparent distress HEENT: Atraumatic, Normocephalic. Negative for: Thyromegaly, Lymphadenopathy Cardiovascular: Regular rate Lungs: Normal air movement Abdomen: Soft, Non Tender, Gravid Neurological: Deep Tendon Reflexes 2+/4 and Symmetrical, Neuro grossly intact. 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 Negative for: Vulvar lesions Estimated gestational size: Appropriate for gestational size Presentation: Cephalic Assessment/Plan All Active Problems (Last Reviewed 07/11/18 @ 08:53 by Michelle Raymond) Unspecified contraceptive management (Acute) (Acute) screening encounter (Acute) History of miscarriage, currently (Acute) Supervision of high-risk (Acute) High risk due to history of labor (Acute) This is a 23 year-old, at 38 weeks gestational age breech and oligo plan LTCS
--- NOTE | 2018-07-12 21:27 | OP.PCM_ITS ---
Problem List (1) Unspecified contraceptive management Status: Acute Comment: Mirena IUD 6 wk pp- NO PA REQUIRED (2) Status: Acute Qualifiers: Comment: Pregancy History 3 Elective abortions Hx Para 1 Spontaneous abortions 1 Hx # Term Pregnancies Ectopic pregnancies Hx # Pregnancies Multiple births # of living children Past Pregnancies Del. Date Name GA/Weeks Outcome Route Bth Weight Gen Labor Lgth Anesthesia Del [facility] Provider FOB 04/28/[id number] - [id number] [facility] Status: Acute Comment: NT on 01/09/18 WNL (4) History of miscarriage, currently Status: Acute (5) Supervision of high-risk Status: Acute Qualifiers: Comment: PRR EDD1 PC Lashay Melvin (6) High risk due to history of labor Status: Acute Qualifiers: Comment: ALVAREZ 07/23/18 gender surprise PC Lashay Melvin plan progesterone injections 16-36 week Cherelle information/order faxed 01/24/18 EM Report of Operation Date of Procedure: 07/12/18 Pre-Operative Diagnosis: breech oligo Post-Operative Diagnosis: same Surgery/Procedure Performed:: ltcs Description of Surgical Findings:: nl uterus tubes ovaries 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 Spinal anesthesia was placed without difficulty. Givens catheter was placed. The patient was placed in the dorsal supine position with leftward tilt. Patient was prepped and draped in the normal sterile fashion. Pfannenstiel skin incision was made with the scalpel and carried through to the underlying layer of fascia with the scalpel. Fascia was nicked in the midline and the incision extended laterally. The rectus bellies were dissected off superiorly and inferiorly with out complication both sharply and bluntly. The peritoneum was entered digitally. The incision was stretched and a low transverse uterine incision was made with the scalpel. The infant's buttocks was delivered atraumatically followed by the legs being swept anteriorly followed by bilateral shoulders without complication the rest of the infant delivered. The cord was clamped and cut and the was handed off to awaiting nurse. The placenta was delivered spontaneously immediately following and was noted to be intact and have a three-vessel cord. The uterus was exteriorized cleared of all clots and debris, and the incision was closed in a double layer closure using #1 Monocryl. The uterus was returned to the maternal abdomen and gutters were cleared of all clots and debris. The ovaries and fallopian tubes were noted to be within normal limits. The peritoneum was closed with 3-0 Monocryl in a running fashion. Fascia was closed with 0 PDS in a running fashion. Subcutaneous tissue was copiously irrigated and the skin was closed with 3-0 Monocryl in a subcuticular fashion. Mepilex dressing were applied without complication. Patient was taken to recovery in stable condition. Grafts/Implants Used: none - Complications none - Admit VTE Documentation VTE Present on Admission: No
--- NOTE | 2018-07-12 21:29 | DCINST_ITS ---
Discharge Diet: No Restrictions Discharge Activity: Return to Normal Activity, May not drive while taking narcotic pain medications., May Shower May resume sexual activity in: 4-6 weeks Call your doctor if your incision/area has: Continuous Slow Oozing, Sudden Increased Bleeding, Increased Pain/ Swelling, Increased Redness, Foul Smelling Discharge Additional Instructions: If you experience any of the following, contact your healthcare provider. * Bleeding that soaks a pad every hour for 2 hours * Fever 100.4 or higher * Unrelieved incision or abdominal pain * Swelling, redness, discharge or bleeding from your incision or episiotomy site * Your incision begins to separate * Problems urinating (including inability to urinate or burning while urinating). * Visual changes * Severe headache * Flu-like symptoms * Pain or redness in one of both of your breasts * Pain, warmth, tenderness or swelling in your legs, especially the calf area * Frequent nausea and vomiting * Symptoms of depression or anxiety If you experience any of the following, call 911 or go to the nearest Emergency Room. * Chest pain * Problems breathing * Seizure activity * Partial or complete paralysis of a body part, slurred speech, weakness or drooping of the face, or a sudden inability to walk or hold your balance Allergies/Adverse Reactions: Allergies No Known Allergies Allergy (Verified 07/11/18 08:53) Medications to take at Discharge vitamin,calcium,igedsypp-rnkr-ussme acid tablet 1 tab PO QDAY 12/13/17 Naproxen [Naprosyn] 250 - 500 mg PO Q8H PRN PRN #30 tablet 07/12/18 Oxycodone HCl/Acetaminophen [Percocet 5-325] 1 - 2 tablet PO Q4H PRN PRN 7 Days #28 tablet 07/12/18 The following prescriptions were given: Oxycodone HCl/Acetaminophen [Percocet 5-325] 1 - 2 tablet PO Q4H PRN PRN 7 Days #28 tablet PRN Reason: Moderate-Severe pain Naproxen [Naprosyn] 250 - 500 mg PO Q8H PRN PRN #30 tablet PRN Reason: MILD PAIN Please Follow Up With: Phyllis Glass MD - [phone] When: Call to make an appointment with your doctor in 6 weeks. If you had elevated Blood pressure or 4th degree laceration you will need to be seen in 2 weeks. Primary Care Physician: Care Physician,No Primary [Primary Care Provider] - Test Results: Test results from this visit will be discussed in further detail at your follow- up appointment, if applicable.
[2018-07-12] MEDS: Ketorolac 30 MG/ML Syringe IV (22:07)
[2018-07-12] MEDS: 0.9% Saline Lock 10 ML Syringe IV (22:07)
[2018-07-13] VITALS (11 sets, daily range): BP systolic 105–138; BP diastolic 62–88; PULSE 83–111; RESP 14–18; TEMP 36.4–36.9; O2SAT 95–99
[2018-07-13] MEDS: DiphenhydrAMINE 25 MG Capsule PO (03:04)
[2018-07-13] MEDS: Ketorolac 30 MG/ML Syringe IV ×4 (04:10→21:52)
[2018-07-13 05:45] LABS: Hematocrit 30.6 % (37-47); Mean Corp Hgb Conc 32.7 g/gl (32-36); Mean Corpuscular Hgb 29.5 pg (27.0-32.0); Mean Corpuscular Volume 90.3 fL (81-99); Mean Platelet Vol. 10.5 fl (6.2-12.0); Platelet Count 178 K/mm3 (150-450); RBC Distribution Width CV 13.4 % (11.6-14.6); RBC Distribution Width SD 43.8 fl (35.1-43.9); Red Blood Count 3.39 M/mm3 (4.2-5.4); White Blood Count 11.5 K/mm3 (4.4-11.0)
[2018-07-13 05:47] LABS: Scan Indicated on CBC? Y/N NO
--- NOTE | 2018-07-13 08:34 | PCM.PN.OB ---
Subjective: No CP, SOB. Up in chair this am.States pain controlled - Physical Exam General: Alert, Oriented x3 Abdomen: Soft, Non-Distended, - - FF below U. Dressing dry and intact. Minimal discomfort Vital Signs Temp Pulse Resp BP Pulse Ox 98.0 F 94 16 120/62 99 07/13/18 04:13 07/13/18 06:35 07/13/18 06:35 07/13/18 04:13 07/13/18 06:35 Oxygen Delivery Method Room Air Weight: 213 lb Body Mass Index (BMI) 37.7 Intake and Output for Last 24 Hours 07/11/18 07/12/18 07/13/18 23:59 23:59 23:59 Intake Total 1861 / 1861 751 / 751 Output Total 950 / 950 900 / 900 Balance 911 / 911 -149 / -149 Laboratory Tests Past 24 Hrs 07/12/18 07/12/18 07/13/18 11:20 11:20 05:18 WBC 10.8 11.5 H RBC 4.38 3.39 L Hgb 12.9 10.0 L Hct 39.4 30.6 L MCV 90.0 90.3 MCH 29.5 29.5 MCHC 32.7 32.7 RDW 13.3 13.4 RDW Differential 43.6 43.8 Plt Count 231 178 MPV 11.2 10.5 Blood Type A POSITIVE Antibody Screen NEGATIVE Medical Necessity - Tobacco Use Smoking Status: Former smoker Assessment/Plan All Active Problems (Last Reviewed 07/11/18 @ 08:53 by Michelle Raymond) Unspecified contraceptive management (Acute) (Acute) screening encounter (Acute) History of miscarriage, currently (Acute) Supervision of high-risk (Acute) High risk due to history of labor (Acute) LTPCS Breech/oligo POD#1: Routine care. .
[2018-07-13] MEDS: Lactated Ringers 1,000 ML 100 ML IV (08:41)
[2018-07-13] MEDS: Senna/Docusate Sodium 1 Tablet PO (10:30)
[2018-07-13] MEDS: 0.9% Saline Lock 10 ML Syringe IV ×3 (10:32→21:51)
[2018-07-13] MEDS: Acetaminophen 500 MG Tablet 1000 MG PO (20:23)
[2018-07-14 02:20] VITALS: BP 126/54; PULSE 91; RESP 16; TEMP 36.7; O2SAT 95
[2018-07-14] MEDS: 0.9% Saline Lock 10 ML Syringe IV ×2 (04:18→10:33)
[2018-07-14] MEDS: Ketorolac 30 MG/ML Syringe IV ×2 (04:18→10:33)
[2018-07-14 08:30] VITALS: BP 130/71; PULSE 97; RESP 14; TEMP 36.3; O2SAT 98
[2018-07-14] MEDS: Senna/Docusate Sodium 1 Tablet PO (10:32)
[2018-07-14 13:21] VITALS: BP 123/79; PULSE 107; RESP 14; TEMP 36.9; O2SAT 99
== END 2018-07-14 14:10 | disposition home or self-care (01) | DRG 540 ==
LOC: WPOUT 13:26
PROVIDERS: Admitting Provider Obstetrics & Gynecology; Referring Provider Obstetrics & Gynecology; Visit Provider Obstetrics & Gynecology
DX: O41.03X0 Oligohydramnios, third trimester, not applicable or unspecified (principal); O32.1XX0 Maternal care for breech presentation, not applicable or unspecified; Z87.891 Personal history of nicotine dependence; Z3A.38 38 weeks gestation of pregnancy; Z37.0 Single live birth
CPT/HCPCS: 36415; 59050; 59412; 76815; 85027; 86850; 86900; 96372; 99218; J7120; A4216; G0378

== ENCOUNTER 2018-07-17 13:05 | Outpatient (CLI) | payer MEDICAID, SELFPAY ==
--- OUTSIDE RECORDS SUMMARY | 2018-07-17 13:43 | XMS RPT_ITS ---
:1995 Author Organization OHIP Support Name Relationship Address Phone SCHFLER Unavailable [address] + [place] [address] STANISLAV RUIZ Unavailable [address] + [place] [address] SCHFLER Unavailable [address] + [place] [address] STANISLAV RUIZ Unavailable [address] + [place] [address] SCHFLER Unavailable [address] + [place] [address] STANISLAV RUIZ Unavailable [address] + [place] [address] SCHFLER Unavailable [address] + [place] [address] STANISLAV RUIZ Unavailable [address] + [place] [address] SCHFLER Unavailable [address] + [place] [address] STANISLAV RUIZ Unavailable [address] + [place] [address] SCHFLER Unavailable [address] + [place] [address] STANISLAV RUIZ Unavailable [address] + [place] [address] SCHFLER Unavailable [address] + [place] [address] STANISLAV RUIZ Unavailable [address] + [place] [address] SCHFLER Unavailable [address] + [place] [address] STANISLAV RUIZ Unavailable [address] + [place] [address] SCHFLER Unavailable [address] + [place] [address] STANISLAV RUIZ Unavailable [address] + [place] [address] SCHFLER Unavailable [address] + [place] [address] STANISLAV RUIZ Unavailable [address] + [place] [address] SCHFLER Unavailable [address] + [place] [address] STANISLAV RUIZ Unavailable [address] + [place] [address] STANISLAV RUIZ Unavailable [address] + [place] [address] UE Unavailable Unavailable Unavailable SCHFLER Unavailable [address] + [place] [address] STANISLAV RUIZ Unavailable [address] + [place] [address] SCHFLER Unavailable [address] + [place] [address] STANISLAV RUIZ Unavailable [address] + [place] [address] SCHFLER Unavailable [address] + [place] [address] STANISLAV RUIZ Unavailable [address] + [place] [address] SCHFLER Unavailable [address] + [place] [address] STANISLAV RUIZ Unavailable [address] + [place] [address] SCHFLER Unavailable [address] + [place] [address] STANISLAV RUIZ Unavailable [address] + [place] [address] SCHFLER Unavailable [address] + [place] [address] STANISLAV RUIZ Unavailable [address] + [place] [address] SCHFLER Unavailable [address] + [place] [address] STANISLAV RUIZ Unavailable [address] + [place] [address] SCHFLER Unavailable [address] + [place] [address] STANISLAV RUIZ Unavailable [address] + [place] [address] SCHFLER Unavailable [address] + [place] [address] STANISLAV RUIZ Unavailable [address] + [place] [address] BALBIR RUIZ Unavailable [address] + [place] [address] STANISLAV RUIZ Unavailable Unavailable + SCHFLER Unavailable [address] + [place] [address] STANISLAV RUIZ Unavailable [address] + [place] [address] SCHFLER Unavailable [address] + [place] [address] STANISLAV RUIZ Unavailable [address] + [place] [address] SCHFLER Unavailable [address] + [place] [address] STANISLAV RUIZ Unavailable [address] + [place] [address] SCHFLER Unavailable [address] + [place] [address] STANISLAV RUIZ Unavailable [address] + [place] [address] SCHFLER Unavailable [address] + [place] [address] STANISLAV RUIZ Unavailable [address] + [place] [address] NOT GIVEN Unavailable Unavailable Unavailable STANISLAV RUIZ Unavailable [address] + [place], [place] [id number] STANISLAV RUIZ Unavailable [address] + [place] [address] U Unavailable Unavailable Unavailable NOT GIVEN Unavailable Unavailable Unavailable NOT GIVEN Unavailable Unavailable Unavailable STANISLAV RUIZ Unavailable [address] + [place], [place] [id number] Care Team Providers Name Role Phone MATHIEU ANDERSON Attending Unavailable PHYLLIS BYRNE Referring Unavailable NO PRIMARY CARE, Primary Care Unavailable PETERSON, VALENTINA DO Admitting [...] Primay Care Physicia, No Primary Care Unavailable MarcanthPhyllis marcus Attending Unavailable Marcanthony, Phyllis Attending Unavailable MarcanthonyPhyllis Referring Unavailable Marcanthony, Phyllis Attending Unavailable MarcanthonyPhyllis Attending Unavailable MarcanthonyPhyllis Referring Unavailable Primay Care Physicia, No Primary Care Unavailable JohnLeda Attending Unavailable Primay Care Physicia, No Referring Unavailable MarcanthPhyllis marcus Attending Unavailable Primay Care Physicia, No Referring Unavailable MarcanthPhyllis marcus Attending Unavailable Primay Care Physicia, No Referring Unavailable Primay Care Physicia, No Primary Care Unavailable MarcanthPhyllis marcus Attending Unavailable Primay Care Physicia, No Referring Unavailable Primay Care Physicia, No Primary Care Unavailable MarcanthPhyllis marcus Attending Unavailable Primay Care Physicia, No Primary Care Unavailable Ellis Leda Attending Unavailable Primay Care Physicia, No Referring Unavailable Primay Care Physicia, No Primary Care Unavailable JohnKingy Attending Unavailable Primay Care Physicia, No Primary Care Unavailable Ellis, Leda Referring Unavailable John Leda Attending Unavailable Primay Care Physicia, No Referring Unavailable Primay Care Physicia, No Primary Care Unavailable MarcanthonyPhyllis Attending Unavailable Primay Care Physicia, No Referring Unavailable Primay Care Physicia, No Primary Care Unavailable MarcanthonyPhyllis Attending Unavailable MarcanthonyPhyllis Referring Unavailable Primay Care Physicia, No Primary Care Unavailable John, Leda Attending Unavailable Primay Care Physicia, No Referring Unavailable Primay Care Physicia, No Primary Care Unavailable Marcanthony, Phyllis Attending Unavailable Primay Care Physicia, No Referring Unavailable Primay Care Physicia, No Primary Care Unavailable Ellis, Leda Attending Unavailable Primay Care Physicia, No Referring Unavailable Primay Care Physicia, No Primary Care Unavailable Ellis, Leda Attending Unavailable Primay Care Physicia, No Referring Unavailable John, Leda Attending Unavailable Primay Care Physicia, No Primary Care Unavailable John, Leda Attending Unavailable Primay Care Physicia, No Referring Unavailable Marcanthony, Phyllis Attending Unavailable Primay Care Physicia, No Referring Unavailable Marcanthony, Phyllis Attending Unavailable Marcanthony, Phyllis Referring Unavailable Primay Care Physicia, No Primary Care Unavailable Marcanthony, Phyllis Admitting Unavailable Marcanthony, Phyllis Admitting Unavailable Marcanthony, Phyllis Attending Unavailable Marcanthony, Phyllis Referring Unavailable Primay Care Physicia, No Primary Care Unavailable Marcanthony, Phyllis Consulting Unavailable Marcanthony, Phyllis Admitting Unavailable John, Leda Attending Unavailable Marcanthony, Phyllis Referring Unavailable Primay Care Physicia, No Primary Care Unavailable Marcanthony, Phyllis Consulting Unavailable Marcanthony, Phyllis Attending Unavailable Marcanthony, Phyllis Referring Unavailable Primay Care Physicia, No Primary Care Unavailable PROBLEMS PROBLEMS DATE TYPE CONDITION / CODE ATTENDING STATUS SOURCE 07/14/2018 Unknown G89.18 - Other acute Marcanthony, Active [place]lu postprocedural pain Phyllis [facility] / G89.18(ICD-10) Hospital Repository 06/26/2018 Unknown O09.93 - Supervision Ellis, Active [place] of high risk [facility] , Hospital unspecified, third Repository trimester / O09.93(ICD-10) 06/13/2018 Unknown O09.299 - Ellis, Active Rahul Supervision of [facility] with other Hospital poor reproductive or Repository obstetric history, unspecified trimester / O09.299(ICD-10) 06/13/2018 Unknown Z36.9 - Encounter Ellis, Active [place] for [facility] screening, Hospital unspecified / Repository Z36.9(ICD-10) 06/13/2018 Unknown Z87.51 - Personal Ellis, Active Rahul history of pre-term [facility] labor / Hospital Z87.51(ICD-10) Repository 06/13/2018 Unknown Z3A.32 - 32 weeks John, Active Rahul gestation of [facility] / Hospital Z3A.32(ICD-10) Repository 06/13/2018 Unknown O09.213 - John, Active [place] Supervision of [facility] with Hospital history of pre-term Repository labor, third trimester / O09.213(ICD-10) 06/13/2018 Unknown Z30.9 - Encounter John, Active [place] for contraceptive [facility] management, Hospital unspecified / Repository Z30.9(ICD-10) 05/16/2018 Unknown O09.92 - Supervision Ellis, Active Rahul of high risk [facility] , Hospital unspecified, second Repository trimester / O09.92(ICD-10) 05/16/2018 Unknown O09.212 - Ellis, Active [place] Supervision of [facility] with Hospital history of pre-term Repository labor, second trimester / O09.212(ICD-10) 05/16/2018 Unknown Z3A.30 - 30 weeks John, Active Rahul gestation of [facility] / Hospital Z3A.30(ICD-10) Repository 04/18/2018 Unknown Z3A.26 - 26 weeks Bryceanthony, Active Rahul gestation of [facility] / Hospital Z3A.26(ICD-10) Repository 04/13/2018 Unknown O09.91 - Supervision John, Active Rahul of high risk [facility] , Hospital unspecified, first Repository trimester / O09.91(ICD-10) 04/13/2018 Unknown O09.211 - John, Active Rahul Supervision of [facility] with Hospital history of pre-term Repository labor, first trimester / O09.211(ICD-10) 04/13/2018 Unknown Z3A.25 - 25 weeks John, Active Rahul gestation of [facility] / Hospital Z3A.25(ICD-10) Repository 04/13/2018 Unknown L03.317 - Cellulitis Ellis, Active [place]ul of buttock / [facility] L03.317(ICD-10) Hospital Repository 03/27/2018 Unknown R80.9 - Proteinuria, Ellis, Active Rahul unspecified / [facility] R80.9(ICD-10) Hospital Repository 03/24/2018 Unknown Z3A.22 - 22 weeks John, Active [place] gestation of [facility] / Hospital Z3A.22(ICD-10) Repository 03/09/2018 Unknown Z3A.18 - 18 weeks Quan, Active Rahul gestation of [facility] / Hospital Z3A.18(ICD-10) Repository 12/14/2017 Unknown Z34.90 - Encounter Quan, Active [place] for supervision of [facility] normal , Hospital unspecified, Repository unspecified trimester / Z34.90(ICD-10) 08/06/2017 Unknown SUPERVISION OF [facility] Quan, Active Rahul RISK , [facility] UNSP, FIRST Hospital TRIMESTER / Repository O09.91(ICD-10) 08/06/2017 Unknown WEEKS OF GESTATION Quan, Active [place] OF NOT [facility] SPECIFIED / Hospital Z3A.00(ICD-10) Repository 07/22/2017 Principle Encounter for VALENTINA WINKLER DO Active Ata Garnett Diagnosis supervision of [facility] , [facility] first trimester / Repository Z3481(ICD-10) PROCEDURES PROCEDURES No Procedure Records FoundRESULTS RESULTS CBC-COMPLETE BLOOD CNT Collected: 07/13/2018 Status: F Source: [place] NO DIFF 5:18 AM [facility] REPOSITORY Order Comment: Comments: Day #1Reason for Laboratory Test TYPE CODE TESTS RESULT OUT OF RANGE REFERENCE UNITS LAB L100.1000 High 4.4-11.0 K/mm3 WBC 11.5 LAB L100.1200 Low 4.2-5.4 M/mm3 RBC 3.39 LAB L100.1300 Low 12.0-15.0 g/dl HGB 10.0 LAB L100.1400 Low 37-47 % HCT 30.6 LAB L100.1500 Normal 81-99 fL MCV 90.3 LAB L100.1600 Normal 27.0-32.0 pg MCH 29.5 LAB L100.1700 Normal 32-36 g/gl MCHC 32.7 LAB L100.1810 Normal 11.6-14.6 % RDW 13.4 CV LAB L100.1820 Normal 35.1-43.9 fl RDW 43.8 SD LAB L100.1900 Normal 150-450 K/mm3 PLT 178 LAB L100.2000 Normal 6.2-12.0 fl MPV 10.5 Performed By: #### L100.0500 #### [facility] [address] [place], [address] DISCHARGE INSTRUCTION Observed: 07/12/2018 Status: F Source: [place] 9:29 PM [facility]ITORY [facility] [address] [place], [place] [address]Htolbxalxtnf for Home/Discharge Zsuimehldbeo50/17/18 2129#: [id number] Acct: [id number]: BALBIR RUIZ Rep #: [id number]: 1995 23 From: Phyllis Byrne MDPCP: Care Physician, No Primary Status: ADM INDischarge Diet: No RestrictionsDischarge Activity: Return to Normal Activity, May not drive while taking narcotic painmedications., May ShowerMay resume sexual activity in: 4-6 weeksCall your doctor if your incision/area has: Continuous Slow Oozing, Sudden Increased Bleeding,Increased Pain/ Swelling, Increased Redness, Foul Smelling DischargeAdditional Instructions:If you experience any of the following, contact your healthcare provider.* Bleeding that soaks a pad every hour for 2 hours* Fever 100.4 or higher* Unrelieved incision or abdominal pain* Swelling, redness, discharge or bleeding from your incision or episiotomy site* Your incision begins to separate* Problems urinating (including inability to urinate or burning while urinating).* Visual changes* Severe headache* Flu-like symptoms* Pain or redness in one of both of your breasts* Pain, warmth, tenderness or swelling in your legs, especially the calf area* Frequent nausea and vomiting* Symptoms of depression or anxietyIf you experience any of the following, call 911 or go to the nearest Emergency Room.* Chest pain* Problems breathing* Seizure activity* Partial or complete paralysis of a body part, slurred speech, weakness or drooping of theface, or a sudden inability to walk or hold your balanceAllergies/Adverse Reactions:AllergiesNo Known Allergies Allergy (Verified 07/11/18 08:53)Medications to take at Dischargeprenatal vitamin,calcium,bbqhlmmy-dumk-mysnp acid tablet 1 tab PO QDAY 03/20/18Naproxen [Naprosyn] 250 - 500 mg PO Q8H PRN PRN #30 tablet 07/12/18Oxycodone HCl/Acetaminophen [Percocet 5-325] 1 - 2 tablet PO Q4H PRN PRN 7 Days #28 /17/18The following prescriptions were given:Oxycodone HCl/Acetaminophen [Percocet 5-325] 1 - 2 tablet PO Q4H PRN PRN 7 Days #28 tabletPRN Reason: Moderate-Severe painNaproxen [Naprosyn] 250 - 500 mg PO Q8H PRN PRN #30 tabletPRN Reason: MILD PAINPlease Follow Up With: Phyllis Byrne MD - [phone]: Call to make an appointment with your doctor in 6 weeks. If you had elevated Bloodpressure or 4th degree laceration you will need to be seen in 2 weeks.Primary Care Physician:Care Physician,No Primary [Primary Care Provider] -Test Results:Test results from this visit will be discussed in further detail at your follow-up appointment,if applicable.07/12/182128 <Electronically signed by Phyllis Byrne MD>Date Phyllis Byrne MDCC: No Primary Care Physician OPERATIVE REPORT Observed: 07/12/2018 Status: F Source: [place] 9:27 PM [facility]ORY [facility] [address] [place], [place] [address]Kgtgbiwkg Nvbhqm17/17/185MR#: [id number] Acct: [id number]: BALBIR URIZ Rep #: [id number]: 1995 23 From: Phyllis Byrne MDPCP: Care Physician, No Primary Status: ADM IN YLocation: WP [id number] List(1) Unspecified contraceptive managementStatus: Acute Comment: Mirena IUD 6 wk pp- NO PA REQUIRED(2) PregnancyStatus: AcuteQualifiers:Comment: Pregancy HistoryGravida 3 Elective abortionsHx Para 1 Spontaneous abortions 1Hx # Term Pregnancies Ectopic pregnanciesHx # Pregnancies Multiple births# of living childrenPast PregnanciesDel. Date Name GA/Weeks Outcome Route Bth Weight Infant Gen Labor [facility]est[facility] FO04/28/1678Dlkymwt31njfd - uskrhroKOUG3qpi 9 [facility](3) screening encounterStatus: Acute Comment: NT on 01/09/18 WNL(4) History of miscarriage, currently Status: Acute(5) Supervision of high-risk pregnancyStatus: AcuteQualifiers:Comment: PRR EDD1 PC Lashay Melvin(6) High risk due to history of laborStatus: AcuteQualifiers:Comment: ALVAREZ 07/23/18 gender surprise PC Pocola Melvin plan progesterone lcjoohkqfm63-38 weekMakena information/order faxed 01/24/18 EMReport of OperationDate of Procedure: 07/12/18Pre-Operative Diagnosis: breech oligoPost-Operative Diagnosis: sameSurgery/Procedure Performed:: ltcsDescription of Surgical Findings::nl uterus tubes ovariesOR Production Control Coordinating Clerk: Anais ContehType of Anesthesia:: SpinalSpecial Medications: ancefSpecimen's removed: female breechDrains: foleyEstimated Blood Loss (mL): 800Fluids Replaced: crystalloidDescription of Procedure:The patient is a 23-year-old at 38 weeks presents with breech presentation andoligohydramnios presented for primary . Spinal anesthesia was placed withoutdifficulty. Benz catheter was placed. The patient was placed in the dorsal supine positionwith leftward tilt. Patient was prepped and draped in the normal sterile fashion.Pfannenstiel skin incision was made with the scalpel and carried through to the underlyinglayer of fascia with the scalpel. Fascia was nicked in the midline and the incision extendedlaterally. The rectus bellies were dissected off superiorly and inferiorly with outcomplication both sharply and bluntly. The peritoneum was entered digitally. The incision wasstretched and a low transverse uterine incision was made with the scalpel. The 'sbuttocks was delivered atraumatically followed by the legs being swept anteriorly followed bybilateral shoulders without complication the rest of the infant delivered. The cord wasclamped and cut and the was handed off to awaiting nurse. The placenta was deliveredspontaneously immediately following and was noted to be intact and have a three-vessel cord.The uterus was exteriorized cleared of all clots and debris, and the incision was closed in adouble layer closure using #1 Monocryl. The uterus was returned to the maternal abdomen andgutters were cleared of all clots and debris. The ovaries and fallopian tubes were noted to bewithin normal limits. The peritoneum was closed with 3-0 Monocryl in a running fashion.Fascia was closed with 0 PDS in a running fashion. Subcutaneous tissue was copiously irrigatedand the skin was closed with 3-0 Monocryl in a subcuticular fashion. Mepilex dressing wereapplied without complication. Patient was taken to recovery in stable condition.Grafts/Implants Used: none- Complicationsnone- Admit VTE DocumentationVTE Present on Admission: No07/12/182126 <Electronically signed by Phyllis Byrne MD>Date Phyllis Byrne MDCC: No Primary Care Physician; Phyllis Byrne MD Signed HISTORY AND PHYSICAL Observed: 07/12/2018 Status: F Source: [place] EXAM 9:24 PM [facility] RE[facility]ITORY [facility] [address] [place], [place] [address]Rdrvoit and Igwmmmsv93/17/182117MR#: [id number] Acct: [id number]: BALBIR RUIZ Rep #: [id number]: 1995 23 From: Phyllis Byrne MDPCP: Care Physician, No Primary Status: ADM IN YLocation: WP [id number] Problem List(1) Unspecified contraceptive managementStatus: Acute Comment: Mirena IUD 6 wk pp- NO PA REQUIRED(2) PregnancyStatus: AcuteQualifiers:Comment: Pregancy HistoryGravida 3 Elective abortionsHx Para 1 Spontaneous abortions 1Hx # Term Pregnancies Ectopic pregnanciesHx # Pregnancies Multiple births# of living childrenPast PregnanciesDel. Date Name GA/Weeks Outcome Route Bth Weight Gen Labor Lgth Anesthesia Del LocatnProvider FO04/28/1673Xdprxyd55fwxq - kgmeptnJSAP8rzh 9 [facility] screening encounterStatus: Acute Comment: NT on 01/09/18 WNL(4) History of miscarriage, currently Status: Acute(5) Supervision of high-risk pregnancyStatus: AcuteQualifiers:Comment: PRR EDD1 PC Lashay Melvin(6) High risk due to history of laborStatus: AcuteQualifiers:Comment: ALVAREZ 07/23/18 gender surprise PC Lashay Melvin plan progesterone jzcibytoap95-64 weekMakena information/order faxed 01/24/18 EMHistoryDate of Admission: 07/12/18inal ALVAREZ: 07/23/18Gestational age: 38 Weeks and 3 DaysHistory of this :This is a 23 year-old, at 38 weeks gestational age presents with breech presentation andoligohydramniosAllergiesNo Known Allergies Allergy (Verified 07/11/18 08:53)Home Medications:Home Medicationsprenatal vitamin,calcium,dowmoibv-iesi-dppye acid tablet 1 tab PO QDAY 12/13/17moking Status: Former smokerAlcohol: NoneNumber of Fetus(es): 1Fetal Heart TracinPrenatal HistoryPast Pregnancies:Pregancy HistoryGravida 3 Elective abortionsHx Para 1 Spontaneous abortions 1Hx # Term Pregnancies Ectopic pregnanciesHx # Pregnancies Multiple births# of living childrenPast PregnanciesDel. Date Name GA/Weeks Outcome Route Bth Weight Gen Labor LgthAnesthesia Del Locatn Provider B04/28/16 Lashay 34 live - 5lbs 9 ounces [facility] Method: Scheduled SectionReview of SystemsConstitutional: Denies: Fever, MalaiseEyes: Denies: Blurred vision, Vision ChangeHEENT: Denies: Head Aches, Visual ChangesCardiovascular: Denies: Chest Pain, PalpitationsRespiratory: Denies: Cough, Shortness of Breath, WheezingGastrointestinal: Denies: Abdominal Pain, Diarrhea, Nausea, VomitingGenitourinary: Denies: Dysuria, HematuriaMusculoskeletal: Denies: Joint Pain, Muscle painSkin: Denies: Lesions, RashNeurological: Denies: Blurred vision, Focal weakness, HeadachesPsychiatric: Denies: Anxiety, DepressionEndocrine: Denies: Heat/ Cold IntoleranceHematologic/ Lymphatic: Denies: Easy Bruising, Easy BleedingPhysical ExamVitals:Vital SignsTemp Pulse Resp BP Pulse Ox97.9 F 110 H 18 134/87 H 18:58 07/12/18 18:58 07/12/18 18:58 07/12/18 18:58 07/12/18 18:58General: Alert, Cooperative, No apparent distressHEENT: Atraumatic, Normocephalic. Negative for: Thyromegaly, LymphadenopathyCardiovascular: Regular rateLungs: Normal air movementAbdomen: Soft, Non Tender, GravidNeurological: Deep Tendon Reflexes 2+/4 and Symmetrical, Neuro grossly intact. Negative for:ClonusGYN: Normal external genitalia. Negative for: Vulvar lesionsEstimated gestational size: Appropriate for gestational sizeFetal Presentation: CephalicAssessment/PlanAll Active Problems (Last Reviewed 07/11/18 @ 08:53 by Michelle Raymond)Unspecified contraceptive management (Acute) (Acute) screening encounter (Acute)History of miscarriage, currently (Acute)Supervision of high-risk (Acute)High risk due to history of labor (Acute)This is a 23 year-old, at 38 weeks gestational age breech and oligoplan LTCS07/12/182123 <Electronically signed by Phyllis Byrne MD>Date Phyllis Byrne MDCosigner Signature: Date (if applicable)CC: No Primary Care Physician; Phyllis Byrne MD Signed CBC-COMPLETE BLOOD CNT Collected: 07/12/2018 Status: F Source: [place] NO DIFF 11:20 AM [facility] REPOSITORY TYPE CODE TESTS RESULT OUT OF RANGE REFERENCE UNITS LAB L100.1000 Normal 4.4-11.0 K/mm3 WBC 10.8 LAB L100.1200 Normal 4.2-5.4 M/mm3 RBC 4.38 LAB L100.1300 Normal 12.0-15.0 g/dl HGB 12.9 LAB L100.1400 Normal 37-47 % HCT 39.4 LAB L100.1500 Normal 81-99 fL MCV 90.0 LAB L100.1600 Normal 27.0-32.0 pg MCH 29.5 LAB L100.1700 Normal 32-36 g/gl MCHC 32.7 LAB L100.1810 Normal 11.6-14.6 % RDW 13.3 CV LAB L100.1820 Normal 35.1-43.9 fl RDW 43.6 SD LAB L100.1900 Normal 150-450 K/mm3 PLT 231 LAB L100.2000 Normal 6.2-12.0 fl MPV 11.2 Performed By: #### L100.0500 #### [facility] [address] [place], [place], [address] TYPE AND SCREEN Collected: 07/12/2018 Status: F Source: [place] 11:20 AM [facility] REPOSITORY Order Comment: Reason for Type AND Screen/Red Cells: SURGERY TYPE CODE TESTS RESULT OUT OF RANGE REFERENCE UNITS LAB B10.0800 Normal BLOOD A TYPE GEL POSITIVE LAB B100.4000 Normal Antibody NEGATIVE Screen Performed By: #### B101.7450 #### [facility] [address] [place], [place], [address] PRODUCTION CONTROL ANALYST OFFICE VISIT Observed: 07/11/2018 Status: F Source: [place] REPORT 9:40 AM [facility] REPOSITORY [facility] [address] [place] [address] [phone] VISITDate of Service: 07/11/18#: [id number] Acct: [id number]: BALBIR RUIZ Rep #: [id number]: 1995 Provider: Phyllis Byrne MDAge/Sex: 23/F [facility]: [facility].BWCStatus: SignedIntakeVital Signs07/11/18 Height 5 ft 3 in07/11/18 Weight: 214 lb07/11/18 Body Mass Index (BMI) 37.910 Blood Pressure 120/80IntakeVisit Reasons: 38 weeksInterpreter Required: NoIs patient in pain?: NoAllergiesNo Known Allergies Allergy (Verified 07/11/18 08:53)Medicationsprenatal vitamin,calcium,egowscwc-odkq-xpnwi acid tablet 1 tab PO QDAY 12/13/17 [HistoryConfirmed 07/11/18]hydroxyprogesterone (PF)( preserving) 250 mg/mL (1 mL) IM oil 250 mg IM QWEEK 02/07/18[History Confirmed 07/11/18]Last Menstral Period: 10/16/17Zika: Zika virus screening: NegativeBreastfeeding: NoPFSHPFSHSocial HistorySmoking Status: Former smokersecond hand exposure: Noalcohol intake: neversubstance use type: does not usewhat type of physical activity do you participate in: noneadditional social history: CodyPregancy HistoryGravida 3 Elective abortionsHx Para 1 Spontaneous abortions 1Past PregnanciesDel. DatName GA/WeeksOutcome Route [facility]the[facility] LocaProviderFOBe ht en [facility] tn04/28/16Adeline 34 live birNSVD 5lbs 9 oFemale none millersbth - pre unces dmjdwdcHIA25 weeks:Details: BALBIR RUIZ is a 23 year old who presents for routine OB visit.OB VisitEDD CalculatorEstimated Delivery Date 07/23/18Based on LMP (certain) 10/16/17Current WG 38w 2dFetal Number 1Expected Delivery Route/PlanSVDPrenatal Specific Issue/Plansflu vaccine declinedminichart given: yestdap vaccine: givenrhogam: NALARC form signed: declineslabor support person: Codypain management: no epiduralcut cord/dad catch: cord onlybreastfeeding: yesPP control planned: Mirena 6 weeks ppspecial requests: []Initial Weight: 162 lbDate Weight BP Urine PrFHR FuHt Pres MoCTX DilationFetal StVisit NoProviderCommentsE ot v teGA G Effaclucose edVisit NotesVisit Date: 07/11/18no vb lof good fm n oregular ctx. patient is breech. discussed risks of version, rjecommendECV- will schedule for noon tomorrow.Phyllis Byrne MD on 07/11/18Visit Date: 07/04/18 visit notes to displayVisit Date: 06/26/18 VB, LOF. Rare CTX.FEDERICO Allen on 06/26/18Visit Date: 06/13/18Doing well. Some rare CTX. No VB, LOF.FEDERICO Allen on 06/13/18Visit Date: 05/30/18 vb lof good fm no regular ctxPhyllis Byrne MD on 05/30/18Visit Date: 05/16/18doing well. Good FM. No VB, LOFMFEDERICO Nick on 05/16/18Visit Date: 04/18/18no vb lof good fm n oregular ctx tdap today cbc gctPhyllis Byrne MD on 04/18/18Visit Date: 04/13/18Work in for painful swollen lump upper left buttocks after progesterone injection 2 nightsago. States less tender and red today. This was not her first injection.FEDERICO Allen on 04/13/18Visit Date: 03/24/18Doing well. No VB, LOF.FEDERICO Allen on 03/24/18Visit Date: 02/24/18needs to have second set of sequential screen drawn. no vb lof cramping. anatomy scanorderedSlacie Byrne MD on 02/24/18Visit Date: 01/24/18Doing well. [...] US and Screening for AneuploidyPrenatal DiagnosticsPrenatal DiagnosticsPrenatal LabsObstetrics Ultrasound 03/03/18Group B Strep DNA Negative (Negative) 06/26/18Details: HIV:Urine Culture:Sequential Screen:NIPT Screen:XgzosyrLRLDK2Wrxjqe Urine Glucose Negative Last Edit by Michelle Raymond on 07/11/18 08:56Office Urine Protein Negative Last Edit by Michelle Raymond on 07/11/18 08:56Assessment AND PlanProblems1. 37 weeks gestation of Z3A.37Pregancy HistoryGravida 3 Elective abortionsHx Para 1 Spontaneous abortions 1Hx # Term Pregnancies Ectopic pregnanciesHx # Pregnancies Multiple births# of living childrenPast PregnanciesDel. Date Name GA/Weeks Outcome Route Bth Weight Gen Labor Lgth Anesthesia DelLocatn Provider FOB04/28/1642Dajjddn95wutp - bmihfvpMPRA2sdg 9 [facility]2. screening encounter Z36.9NT on 01/09/18 WNL3. Supervision of high risk in third trimester O09.93PRR EDD1 PC Pocola Cody4. High risk due to history of labor in third trimester O09.015R8W4 ALVAREZ 07/23/18 gender surprise PC Pocola Melvin plan progesterone pgasvmtxkd78-91 weekMakena information/order faxed 01/24/18 EM5. History of miscarriage, currently O09.2996. Unspecified contraceptive management Z30.9Planfetal movement and labor precautions reviewed.ACOG trimester education reviewed and updated.see problem list details for updated plan management information and see below for ordersplaced at this visit.GA appropriate handout given.OrdersOrders:CodingLevel of Care CodeOB AeisjhrWbljbjgrp89 weeks gestation of Z3A.37Weeks of gestation: 37 weeksAntenatal screening encounter Z36.9Supervision of high risk in third trimester O09.93Trimester: third trimesterHigh risk due to history of labor in third trimester O09.213Trimester: third trimesterHistory of miscarriage, currently O09.299Unspecified contraceptive management Z30.91 0940 <Electronically signed by Phyllis Byrne MD>Date Phyllis Byrne MDCosigner Signature: Date (if applicable)CC: PRODUCTION CONTROL ANALYST OFFICE VISIT Observed: 07/04/2018 Status: F Source: RAHUL REPORT 8:36 AM [facility] [address], [place] [phone] VISITDate of Service: 07/04/18MR#: [id number] Acct: [id number]: BALBIR RUIZ Rep #: [id number]: 1995 Provider: JOEL Levy/Sex: 23/F [place] [facility] [place].BWCStatus: SignedIntakeVital Signs07/04/18 Height 5 ft 3 in07/04/18 Weight: 214 lb07/04/18 Body Mass Index (BMI) 37.91 Blood Pressure 130/74 HIntakeVisit Reasons: 37 weeksInterpreter Required: NoIs patient in pain?: YusraAllergiesNo Known Allergies Allergy (Verified 07/04/18 08:18)Medicationsprenatal vitamin,calcium,yvpqydaz-eice-tizdr acid tablet 1 tab PO QDAY 12/13/17 [HistoryConfirmed 07/04/18]hydroxyprogesterone (PF)( preserving) 250 mg/mL (1 mL) IM oil 250 mg IM QWEEK 02/07/18[History Confirmed 07/04/18]Last Menstral Period: 10/16/17Zika: Zika virus screening: NegativeBreastfeeding: NoPFSHPFSHSocial HistorySmoking Status: Former smokersecond hand exposure: Noalcohol intake: neversubstance use type: does not usewhat type of physical activity do you participate in: noneadditional social history: CodyPregancy HistoryGravida 3 Elective abortionsHx Para 1 Spontaneous abortions 1Past PregnanciesDel. DatName GA/WeeksOutcome Route Bt WeigInfant GLabor LgAnesthesDel LocaProviderFOBe ht en th ia tn04/28/16Adeline 34 live birNSVD 5lbs 9 oFemale none millersbth - pre unces tmxscudWPA05 weeks:Details: BALBIR RUIZ is a 23 year old who presents for routine OB visit.OB VisitEDD CalculatorEstimated Delivery Date 07/23/18Based on LMP (certain) 10/16/17Current WG 37w 2dFetal Number 1Expected Delivery Route/PlanSVDPrenatal Specific Issue/Plansflu vaccine declinedminichart given: yestdap vaccine: givenrhogam: NALARC form signed: declineslabor support person: Codypain management: no epiduralcut cord/dad catch: cord onlybreastfeeding: yesPP control planned: Mirena 6 weeks ppspecial requests: []Initial Weight: 162 lbDate Weight BP Urine PrFHR FuHt Pres MoCTX DilationFetal StVisit NoProviderCommentsE ot v teGA G Effaclucose edVisit NotesVisit Date: 07/04/18No visit notes to displayVisit Date: 06/26/18No VB, LOF. Rare CTX.FEDERICO Allen on 06/26/18Visit Date: 06/13/18Doing well. Some rare CTX. No VB, LOF.FEDERICO Allen on 06/13/18Visit Date: 05/30/18no vb lof good fm no regular ctxSharoyash Byrne MD on 05/30/18Visit Date: 05/16/18doing well. Good FM. No VB, LOFMFEDERICO Nick on 05/16/18Visit Date: 04/18/18no vb lof good fm n oregular ctx tdap today cbc gctPhyllis Byrne MD on 04/18/18Visit Date: 04/13/18Work in [...] 01/24/18Doing well. Nausea improved. Denies CTX, LOF, VBMollFEDERICO Wilkinson on 01/24/18Visit Date: 12/27/17no vb cramping doing [...] US and Screening for AneuploidyPrenatal DiagnosticsPrenatal DiagnosticsPrenatal LabsObstetrics Ultrasound 03/03/18Group B Strep DNA Negative (Negative) 06/26/18Details: HIV:Urine Culture:Sequential Screen:NIPT Screen:ROSConstReports system reviewed and no additional complaints, except as docuGIDenies nausea, Denies vomiting, Denies abdominal painExamConstGeneral: cooperativeNutritional Appearance: well nourishedGIPalpation: soft, nontender, other (gravid)HsozvyfUSZLH7Oenhsy Urine Glucose Negative Last Edit by Michelle Raymond on 07/04/18 08:22Office Urine Protein Negative Last Edit by Michelle Raymond on 07/04/18 08:22Assessment AND PlanProblems1. Supervision of high risk in third trimester O09.93PRR EDD1 PC Lashay Cody2. High risk due to history of labor in third trimester O09.802F9L3 ALVAREZ 07/23/18 gender surprise PC Pocola Melvin plan progesterone akabtsrsif38-29 weekMakena information/order faxed 01/24/18 EM3. History of miscarriage, currently O09.2994. screening encounter Z36.9NT on 01/09/18 WNL5. 37 weeks gestation of Z3A.37Pregancy HistoryGravida 3 Elective abortionsHx Para 1 Spontaneous abortions 1Hx # Term Pregnancies Ectopic pregnanciesHx # Pregnancies Multiple births# of living childrenPast PregnanciesDel. Date Name GA/Weeks Outcome Route Bth Weight Infant Gen Labor Lgth Anesthesia DelLocatn Provider FOB04/28/1607Nhjwxso95cauw - zjvnnvyDDDL4kct 9 ouncesFemale nonemillersbaltimore [facility]6. Encounter for management of intrauterine contraceptive device (IUD), unspecified IUDmanagement type Z30.431PlanOrders placed: noneReviewed of labor precautions, movement/kick countsACOG trimester education reviewed and updatedSee problem list details for updated plan of careGestational age appropriate handout givenRTO: 1 weekOrdersOrders:CodingLevel of Care CodeOff vis,est,level 3DiagnosesSupervision of high risk in third trimester O09.93Trimester: third trimesterHigh risk due to history of labor in third trimester O09.213Trimester: third trimesterHistory of miscarriage, currently O09.299Antenatal screening encounter Z36.937 weeks gestation of Z3A.37Weeks of gestation: 37 weeksEncounter for management of intrauterine contraceptive device (IUD), unspecified IUD managementtype Z30.431Contraceptive encounter type: IUD managementIUD management: kpstfwlhsil69/09/18 0836 <Electronically signed by Leda CABALLERO>Date Leda Levinmatt MALDONADO-CCosigner Signature: Date (if applicable)CC: GROUP B STREP DNA Collected: 06/26/2018 Status: F Source: ARHUL BY PCR 2:06 PM [facility] REPOSITORY Order Comment: Source: Vaginal-Rectal TYPE CODE TESTS RESULT OUT OF RANGE REFERENCE UNITS LAB L8200.0100 Normal Negative GBS Negative TEST RESULT Performed By: #### L8200.0000 #### [facility] [address] [place], [address] PRODUCTION CONTROL ANALYST OFFICE VISIT Observed: 06/26/2018 Status: F Source: RAHUL REPORT 9:14 AM [facility] REPOSITORY [facility] [address] [place] [phone] VISITDate of Service: 06/26/18MR#: [id number] Acct: [id number]: BALBIR RUIZ Rep #: [id number]: 1995 Provider: JOEL Toledoge/Sex: [facility]atus: SignedIntakeVital Signs06/26/18 Height 5 ft 3 in06/26/18 Weight: 209 lb 8 oz06/26/18 Body Mass Index (BMI) 37. Blood Pressure 122/80 HIntakeVisit Reasons: 36 weeksChief Complaint: est obInterpreter Required: NoIs patient in pain?: NoAllergiesNo Known Allergies Allergy (Verified 06/26/18 08:53)Medicationsprenatal vitamin,calcium,qfqxbbsr-xdrt-lecai acid tablet 1 tab PO QDAY 12/13/17 [...] 9 oFemale none millersbth - pre unces iiqtpgyQMV24 weeks:Details: BALBIR RUIZ is a 23 year [...] 05/30/18no vb lof good fm no regular ctxPhyllis Byrne MD on 05/30/18Visit Date: 05/16/18doing well. Good FM. No VB, LOFMFEDERICO Nick on 05/16/18Visit Date: 04/18/18no vb lof good fm n oregular ctx tdap today cbc gctPhyllis Byrne MD on 04/18/18Visit Date: 04/13/18Work in [...] Antigen Negative (Negative) 12/27/17Details: HIV:Urine Culture:Sequential Screen:NIPT Screen:ROSConstReports system reviewed and no additional complaints, except as docuGIDenies nausea, Denies vomiting, Denies abdominal painExamConstGeneral: cooperativeNutritional Appearance: well nourishedGIPalpation: soft, nontender, other (gravid)ElmitnzILRUZ5Minxts Urine Glucose Negative Last Edit by Nora Lamas on 06/26/18 08:54Office Urine Protein Negative Last Edit by Nora Lamas on 06/26/18 08:54Assessment AND PlanProblems1. High risk due to history of labor in third trimester O09.633X7M4 ALVAREZ 07/23/18 gender surprise PC Lashay Melvin plan progesterone qnhfgcargq39-64 weekMakena information/order faxed 01/24/18 EM2. Supervision of high risk in third trimester O09.93PRR EDD1 PC Pocola Cody3. History of miscarriage, currently O09.2994. screening encounter Z36.9NT on 01/09/18 WNL5. 36 weeks gestation of Z3A.36Pregancy HistoryGravida 3 Elective abortionsHx Para 1 Spontaneous abortions 1Hx # Term Pregnancies Ectopic pregnanciesHx # Pregnancies Multiple births# of living childrenPast PregnanciesDel. Date Name GA/Weeks Outcome Route Bth Weight Infant Gen Labor Lgth Anesthesia DelLocatn Provider FOB04/28/1660Korjpjs38lpmi - asskauoAYBQ1jjj 9 ouncesFemale nonemillersburg6. Encounter for management of intrauterine contraceptive device (IUD), unspecified IUDmanagement type Z30.431PlanOrders placed: noneStop progesterone injectionsReviewed of labor precautions, movement/kick countsACOG trimester education reviewed and updatedSee problem list details for updated plan of careGestational age appropriate handout givenRTO: 1 weekOrdersOrders:CodingLevel of Care CodeOff vis,est,level 3DiagnosesHigh risk due to history of labor in third trimester O09.213Trimester: third trimesterSupervision of high risk in third trimester O09.93Trimester: third trimesterHistory of miscarriage, currently O09.299Antenatal screening encounter Z36.936 weeks gestation of Z3A.36Weeks of gestation: 36 weeksEncounter for management of intrauterine contraceptive device (IUD), unspecified IUD managementtype Z30.431Contraceptive encounter type: IUD managementIUD management: klrijffdrdn84/01/18 0914 <Electronically signed by Leda CORTEZC>Date Leda Lopez NP-CCosigner Signature: Date (if applicable)CC: Observed: 06/26/2018 Status: F Source: [place] CULTURE, GROUP B 12:00 AM [facility] STREPTOCOCCUS REPOSITORY STEVO CultureGroup B Beta Streptococcus is not isolated. Performed By: #### M100.1800 ####[facility] [address] [place], [address] PRODUCTION CONTROL ANALYST OFFICE VISIT Observed: 06/13/2018 Status: F Source: RHAUL REPORT 9:00 AM [facility] REPOSITORY [facility] [address], [place] [phone] VISITDate of Service: 06/13/18MR#: [id number] Acct: [id number]: BALBIR RUIZ Rep #: [id number]: 1995 Provider: JOEL Toledoge/Sex: 23/F [facility]Status: SignedIntakeVital Signs06/13/18 Height 5 ft 3 in06/13/18 Weight: 206 lb 6 oz06/13/18 Body Mass Index (BMI) 36.509 Blood Pressure 130/79IntakeVisit Reasons: 32 weeksInterpreter Required: NoAccompanied by: husbandIs patient in pain?: Yes Pain scale (1-10): 4AllergiesNo Known Allergies Allergy (Verified 06/13/18 08:31)Medicationsprenatal vitamin,calcium,jfkhvlot-qiuh-lrybh acid tablet 1 tab PO QDAY 12/13/17 [...] Spontaneous abortions 1Past PregnanciesDel. DatName GA/WeeksOutcome Route [facility] WeigInfant GLabor LgAnesthesDel LocaProviderFOBe ht en th ia tn04/28/16Adeline 34 live birNSVD 5lbs 9 oFemale none millersbth - pre unces dsjcywyUWN46 weeks:Details: BALBIR RUIZ is a 23 year [...] Admin Location Lot Number Expiration Date NDC Neomfsudozmg006 mg IM right gluteus [id number] 02/23/21 65741-952-56 AMAG PWPVDYKYCWBnbhqsuYHOBM3Entkhv Urine Glucose Negative Last Edit by Linda Narayanan on 06/13/18 08:45Office Urine Protein Negative Last Edit by Linda Narayanan on 06/13/18 08:45Assessment AND PlanProblems1. High risk due to history of labor in third trimester O09.927Z1L2 ALVAREZ 07/23/18 gender surprise PC Pocola Melvin plan progesterone yizhlolult02-57 weekMakena information/order faxed 01/24/18 EM2. History of miscarriage, currently O09.2993. screening encounter Z36.9NT on 01/09/18 WNL4. 32 weeks gestation of Z3A.32Pregancy HistoryGravida 3 Elective abortionsHx Para 1 Spontaneous abortions 1Hx # Term Pregnancies Ectopic pregnanciesHx # Pregnancies Multiple births# of living childrenPast PregnanciesDel. Date Name GA/Weeks Outcome Route Bth Weight Gen Labor Lgth Anesthesia DelLocatn Provider FOB04/28/1689Ncbdlnj65lsvp - nhwcsxfUQXX7mcq 9 ouncesFemalwyandot [facility]5. Encounter for contraceptive management, unspecified type Z30.9PlanOrders placed: nonecontinue progesterone injections until 36 weeksPlans mirena IUD 6 wk ppReviewed of labor precautions, movement/kick countsACOG trimester education reviewed and updatedSee problem list details for updated plan of careGestational age appropriate handout givenRTO: 2 weeksOrdersOrders:MedicationsDiscontinued:[place] (hydroxyprogest(PF)(preg presv)) Cnekes590 mg IM ONCE NS Z87.51 Linda Narayanantinued Reason: Office Medication has been Documented as givenCodingLevel of Care CodeOff vis,est,level 3DiagnosesHigh risk due to history of labor in third trimester O09.213Trimester: third trimesterHistory of miscarriage, currently O09.299Antenatal screening encounter Z36.932 weeks gestation of Z3A.32Weeks of gestation: 32 weeksEncounter for contraceptive management, unspecified type Z30.9Contraceptive encounter type: qjsaguojdtn29/18/18 0900 <Electronically signed by Leda Lopez AUTO CLEANER-C>Date Leda Lopez AUTO CLEANER-CCosigner Signature: Date (if applicable)CC: PRODUCTION CONTROL ANALYST OFFICE VISIT Observed: 05/30/2018 Status: F Source: RAHUL REPORT 10:06 AM [facility] [address], [place] [phone] VISITDate of Service: 05/30/18MR#: [id number] Acct: [id number]: BALBIR RUIZ Rep #: [id number]: 1995 Provider: Phyllis Byrne MDAge/Sex: 23/F [place] [facility] [place].BWCStatus: SignedIntakeVital Signs05/30/18 Height 5 ft 3 in05/30/18 Weight: 203 lb 4 oz05/30/18 Body Mass Index (BMI) 36.009 Blood Pressure 120/75IntakeVisit Reasons: 32 weeksChief Complaint: est obInterpreter Required: NoIs patient in pain?: NoAllergiesNo Known Allergies Allergy (Verified 05/30/18 09:33)Medicationsprenatal vitamin,calcium,kfboiurs-kshp-oydmj acid tablet 1 tab PO QDAY 12/13/17 [...] Spontaneous abortions 1Past PregnanciesDel. DatName GA/WeeksOutcome Route [facility] WeigInfant GLabor LgAnesthesDel LocaProviderFOBe ht en th ia tn04/28/16Adeline 34 live birNSVD 5lbs 9 oFemale none millersbth - pre unces sovfphoQHI33 weeks:Details: BALBIR RUIZ is a 23 year [...] no acute distressGIInspection: normal to inspectionPalpation: soft, jaxonuvhrSobvcfhDHHIP5Lldnxs Urine Glucose Negative Last Edit by Nora [...] Weight Gen Labor Lgth Anesthesia DelLocatn Provider FOB04/28/1621Yvhmalt00pmou - tdejwolDDUU4ego 9 ouncesFemale nonecordova2. screening encounter Z36.9NT on 01/09/18 WNL3. Supervision of high risk in third trimester O09.93PRR EDD1 PC Pocola Cody4. High risk due to history of labor in third trimester O09.326U7J4 ALVAREZ 07/23/18 gender surprise PC Pocola Melvin plan progesterone -19 weekMakena information/order faxed 01/24/18 EM5. History of miscarriage, currently O09.299Planfetal movement and labor precautions reviewed.ACOG trimester education reviewed and updated.see problem list details for updated plan management information and see below for ordersplaced at this visit.GA appropriate handout given.OrdersOrders:CodingLevel of Care CodeOB ZndofkjOjvjbtsjb84 weeks gestation of Z3A.32Weeks of gestation: 32 weeksAntenatal screening encounter Z36.9Supervision of high risk in third trimester O09.93Trimester: third trimesterHigh risk due to history of labor in third trimester O09.213Trimester: third trimesterHistory of miscarriage, currently O09.5833605/30/18 1006 <Electronically signed by Phyllis Byrne MD>Date Phyllis Byrne MDCosigner Signature: Date (if applicable)CC: PRODUCTION CONTROL ANALYST OFFICE VISIT Observed: 05/16/2018 Status: F Source: RAHUL REPORT 8:53 AM [facility] REPOSITORY [facility] [address], [place] [phone] VISITDate of Service: 05/16/18MR#: [id number] Acct: [id number]: BALBIR RUIZ Rep #: [id number]: 1995 Provider: JOEL Levy/Sex: 23/F [facility]: SignedIntakeVital Signs05/16/18 Height 5 ft 3 in05/16/18 Weight: 197 lb 8 oz05/16/18 Body Mass Index (BMI) 34.908 Blood Pressure 118/69IntakeVisit Reasons: 30 weeksChief Complaint: est obInterpreter Required: NoIs patient in pain?: NoAllergiesNo Known Allergies Allergy (Verified 05/16/18 08:37)Medicationsprenatal vitamin,calcium,krnrtvet-fjov-ulydq acid tablet 1 tab PO QDAY 12/13/17 [...] Spontaneous abortions 1Past PregnanciesDel. DatName GA/WeeksOutcome Route [facility] WeigInfant GLabor LgAnesthesDel LocaProviderFOBe ht en th ia tn04/28/16Adeline 34 live birNSVD 5lbs 9 oFemale none millersbth - pre unces ftjtvkwPNU12 weeks:Details: BALBIR RUIZ is a 23 year [...] v teGA G Effaclucose edVisit NotesVisit Date: 05/16/18doing well. Good FM. No VB, [...] (PCR) Negative (Negative) 08/03/17Details: HIV:Urine Culture:Sequential Screen:NIPT Screen:ROSCHills & Dales General Hospitaleports system reviewed and no additional complaints, except as docuGIDenies nausea, Denies vomiting, Denies abdominal painExamConstGeneral: cooperativeNutritional Appearance: well nourishedGIPalpation: soft, nontender, other (gravid)DcslnttFQZXB7Sbgnzy Urine Glucose Negative Last Edit by Nora Lamas on 05/16/18 08:44Office Urine Protein Negative Last Edit by Nora Lamas on 05/16/18 08:44Assessment AND PlanProblems1. Supervision of high risk in second trimester O09.92PRR EDD1 PC Pocola Cody2. High risk due to history of labor in second trimester O09.738M5B1 ALVAREZ 07/23/18 gender surprise PC Lashay Melvin plan progesterone djtciyutjc38-40 weekMakena information/order faxed 01/24/18 EM3. History of miscarriage, currently O09.2994. screening encounter Z36.9NT on 01/09/18 WNL5. 30 weeks gestation of Z3A.30Pregancy HistoryGravida 3 Elective abortionsHx Para 1 Spontaneous abortions 1Hx # Term Pregnancies Ectopic pregnanciesHx # Pregnancies Multiple births# of living childrenPast PregnanciesDel. Date Name GA/Weeks Outcome Route Bth Weight Infant Gen Labor Lgth Anesthesia DelLocatn Provider FOB04/28/1665Mwluezl18jwvp - tytdjcrYZNE1gip 9 ouncesFemale nonemillersburgPlanOrders placed: progesterone injection continues [...] F Source: RAHUL 1H 50G 11:34 AM [facility] REPOSITORY TYPE CODE TESTS RESULT OUT OF RANGE REFERENCE UNITS LAB L501.0250 Normal 70-140 mg/dL GLU 110 GEST 50g 1H Performed By: #### L501.0250 #### [facility] [address] [place], [place], [id number] CBC W/DIFF, AUTOMATED Collected: 04/27/2018 Status: F Source: RAHUL 11:34 AM [facility] REPOSITORY TYPE CODE TESTS RESULT OUT OF [...] Lymph 1.70 Performed By: #### L100.0100 #### [facility] [address] [place], [address] PRODUCTION CONTROL ANALYST OFFICE VISIT Observed: 04/18/2018 Status: F Source: RAHUL REPORT 11:15 AM [facility] REPOSITORY [facility] [address] [place] [address] [phone] VISITDate of Service: 04/18/18MR#: [id number] Acct: [id number]: BALBIR RUIZ Rep #: [id number]: 1995 Provider: Phyllis Byrne MDAge/Sex: 23/F [place] [facility] [place]ENTERtatus: SignedIntakeVital Signs04/18/18 Height 5 ft 3 in04/18/18 Weight: 188 lb 4 oz04/18/18 Body Mass Index (BMI) 33.307/ Blood Pressure 120/66IntakeVisit Reasons: 26 weeksInterpreter Required: NoAccompanied by: husbandIs patient in pain?: NoAllergiesNo Known Allergies Allergy (Verified 04/18/18 11:06)Medicationsprenatal vitamin,calcium,zsiengdj-iivq-gpxub acid tablet 1 tab PO QDAY 12/13/17 [...] Spontaneous abortions 1Past PregnanciesDel. DatName GA/WeeksOutcome Route [facility]the[facility] LocaProviderFOBe ht en [facility] tn04/28/16Adeline 34 live birNSVD 5lbs 9 oFemale none millersh - pre unces zlxqbikKYT26 weeks:Details: BALBIR RUIZ is a 23 year [...] no acute distressGIInspection: normal to inspectionPalpation: soft, vyawukbxcEjhntqhYIWGS9Rgfsqg Urine Glucose Negative Last Edit by Linda Narayanan on 04/18/18 11:13Office Urine Protein Negative Last Edit by Linda Narayanan on 04/18/18 11:13Assessment AND PlanProblems1. screening encounter Z36.9NT on 01/09/18 WNL2. History of miscarriage, currently O09.2993. Supervision of high risk in second trimester O09.92PRR EDD1 PC Lashay Cody4. High risk due to history of labor in second trimester O09.589J1C8 ALVAREZ 07/23/18 gender surprise PC Lashay Melvin plan progesterone wjhxqvjosu81-59 weekMakena information/order faxed 01/24/18 EM5. 26 weeks gestation of Z3A.26Pregancy HistoryGravida 3 Elective abortionsHx Para 1 Spontaneous abortions 1Hx # Term Pregnancies Ectopic pregnanciesHx # Pregnancies Multiple births# of living childrenPast PregnanciesDel. Date Name GA/Weeks Outcome Route Bth Weight Gen Labor Lgth Anesthesia DelLocatn Provider FOB04/28/1624Jfjmrry07amyo - kumalsqIOWM6imi 9 ouncesFemale nonemillersburgPlanOrders placed: see belowACOG trimester education reviewed and updated.see problem list details for updated plan management information.GA appropriate handout given.OrdersOrders:CodingLevel of Care CodeOff vis,est,level 3DiagnosesAntenatal screening encounter Z36.9History of miscarriage, currently O09.299Supervision of high risk in second trimester O09.92Trimester: second trimesterHigh risk due to history of labor in second trimester O09.212Trimester: second jbheledaz91 weeks gestation of Z3A.26Weeks of gestation: 26 weeks04/18/18 1115 <Electronically signed by Phyllis Byrne MD>Date Phyllis Byrne MDCosigner Signature: Date (if applicable)CC: PRODUCTION CONTROL ANALYST OFFICE VISIT Observed: 04/13/2018 Status: F Source: RAHUL REPORT 2:32 PM [facility] REPOSITORY [facility] [address], [place] [phone] VISITDate of Service: 04/13/18MR#: [id number] Acct: [id number]: BALBIR RUIZ Rep #: [id number]: 1995 Provider: JOEL Levy/Sex: [facility]Status: SignedIntakeVital Signs04/13/18 Height 5 ft 3 in04/13/18 Weight: 186 lb 4 oz04/13/18 Body Mass Index (BMI) 33.007/ Blood Pressure 131/79IntakeVisit Reasons: Knot where progesterone injectionInterpreter Required: NoAllergiesNo Known Allergies Allergy (Verified 04/13/18 14:00)Medicationsprenatal vitamin,calcium,rtmjkmrd-rswg-pgteg acid tablet 1 tab PO QDAY 12/13/17 [...] muscle mass. Slightly tender, again states improvedfrom yesterday.ZuqpgqfGBONV1Yrjgmx Urine Glucose Negative Last Edit by Linda Narayanan on 04/13/18 14:05Office Urine Protein Negative Last Edit by Linda Narayanan on 04/13/18 14:05Assessment AND PlanProblems1. High risk due to history of labor in first trimester O09.400Y9V1 ALVAREZ 07/23/18 gender surprise PC Lashay Melvin plan progesterone uwvyquoepn00-82 weekMakena information/order faxed 01/24/18 EM2. Supervision of high risk in first trimester O09.91PRR EDD1 PC Pocola Cody3. 25 weeks gestation of Z3A.254. Cellulitis [...] high risk in first trimester O09.91Trimester: first djbfaihdd24 weeks gestation of Z3A.25Cellulitis of buttock L03.317Site of cellulitis: dqboczi08/19/18 1432 <Electronically signed by Leda CABALLERO>Date Leda CORTEZCCosigner Signature: Date (if applicable)CC: PROTEIN+CREATININE Collected: Status: F Source: RAHUL RATIO,URINE 03/24/2018 5:06 PM [facility] REPOSITORY TYPE CODE TESTS RESULT OUT OF RANGE REFERENCE UNITS LAB L501.1200 Normal NO RANGE EST. mg/dL UR 204.00 CREAT LAB L501.1930 High <11.9 mg/dL 27.4 PROTEIN,UR.R AN. LAB L501.1940 Normal 0-200 mg/g CRE 134 PROT:CRE RATIO Performed By: #### L501.0900 #### [facility] [address] [place], [address] PRODUCTION CONTROL ANALYST OFFICE VISIT Observed: 03/24/2018 Status: F Source: RAHUL REPORT 10:02 AM [facility] REPOSITORY [facility] [address]ah[place] [phone] VISITDate of Service: 03/24/18MR#: [id number] Acct: [id number]: BALBIR RUIZ Rep #: [id number]: 1995 Provider: AUTO CLEANER Leda HastingsAge/Sex: 22/F [facility]Status: SignedIntakeVital Signs03/24/18 Height 5 ft 3 in03/24/18 Weight: 177 lb 8 oz03/24/18 Body Mass Index (BMI) 31.406 Blood Pressure 131/72IntakeVisit Reasons: 22 weeksChief Complaint: est obInterpreter Required: NoIs patient in pain?: NoAllergiesNo Known Allergies Allergy (Verified 03/24/18 09:47)Medicationsprenatal vitamin,calcium,twdwdrwi-pjve-hrcez acid tablet 1 tab PO QDAY 12/13/17 [...] Spontaneous abortions 1Past PregnanciesDel. DatName GA/WeeksOutcome Route [facility] LocaProviderFOBe ht en al tn04/28/16Adeline 34 live birNSVD 5lbs 9 oFemale none millersbth - pre unces gxmlqxgDID99 weeks:Details: BALBIR RUIZ is a 22 year [...] cooperativeNutritional Appearance: well nourishedGIPalpation: soft, nontender, other (gravid)UunppvkYBMWQ6Tmzvgk Urine Glucose Negative Last Edit by Nora M Lamas on 03/24/18 09:50Office Urine Protein 1+ Last Edit by Nora Lamas on 03/24/18 09:50Assessment AND PlanProblems1. Supervision of high risk in first trimester O09.91PRR EDD1 PC Lashay Cody2. High risk due to history of labor in first trimester O09.318Z5H9 ALVAREZ 07/23/18 gender surprise PC Pocola Melvin plan progesterone bgtjxinbbz27-09 weekMakena information/order faxed 01/24/18 EM3. History of [...] DOWNTIME REPORT Observed: 03/16/2018 Status: F Source: [place] 12:18 PM [facility]ORY [facility] [address] [place] [address]Wwjivqdo ReportMR#: [id number] Acct: [id number]: SARABALBIR C Rep #: [id number]: 1995 22 From: Leandro LewsiPCP: Care Physician, No Primary Status: REG CLIThis patient was seen during an EMR downtime February 27, 2018 - March 06, 2018. This patient mayhave a combination of paper and electronic documentation or all paper documentation. Alldocumentation is viewable within the e-chart portion of [employer] for each patient visit. OB ANATOMY SCAN Observed: 03/03/2018 Status: F Source: [place] 7:57 AM [facility] [address] [place] [address]BV Anatomy ScanMR#: [id number] Acct: [id number]: BALBIR RUIZ Rep #: [id number]: 1995 F 22 From: Jim Moreno MDPCP: Care Physician, No Primary Status: REG CLIStudy: OB Anatomy Scan Date of Exam: 03/03/18Exam# [id number] Ordering Dr: Phyllis Byrne MDSTUDY: SECOND AND [...] upper extremities. Normal bilateral lowerextremities. ORDER #: [id number] US/OB Anatomy ScanIMPRESSION:Single live intrauterine at 20 weeks, 1 day by ultrasound withEDD of 07/20/2018. Heart rate of 140 bpm. No suspicious sonographicfindingsElectronically Signed:Chaitanya Moreno MD2018/03/08 at 8:25 EDTTel , Service support , VI: No Primary Care Physician; Phyllis Byrne MD Barrel Repairer:Signed PRODUCTION CONTROL ANALYST OFFICE VISIT Observed: 02/24/2018 Status: F Source: RAHUL REPORT 11:14 AM [facility] [address] [place] [address] [phone] VISITDate of Service: 02/24/18MR#: [id number] Acct: [id number]: BALBIR RUIZ Rep #: [id number]: 1995 Provider: Phyllis Byrne MDAge/Sex: 22/F [facility]Status: SignedIntakeVital Signs02/24/18 Height 5 ft 3 in02/24/18 Weight: 167 lb 8 oz02/24/18 Body Mass Index (BMI) 29.706 Blood Pressure 124/82IntakeVisit Reasons: OB - 18 WEEKSIs patient in pain?: NoAllergiesNo Known Allergies Allergy (Verified 02/14/18 12:18)Medicationsprenatal vitamin,calcium,woxfrdag-eyue-mbdfg acid tablet 1 tab PO QDAY 12/13/17 [...] Spontaneous abortions 1Past PregnanciesDel. DatName GA/WeeksOutcome Route [facility] LocaProviderFOBe en al tn04/28/16Adeline 34 live birNSVD 5lbs 9 oFemale [...] no acute distressGIInspection: normal to inspectionPalpation: soft, fjmciozqpNnryazrLAZXF6Pkyjcu Urine Glucose Negative Last Edit by Silvina Harley on 02/24/18 11:10Office Urine Protein Negative Last Edit by Silvina Harley on 02/24/18 11:10Assessment AND PlanProblems1. Supervision of high risk in first trimester O09.91PRR EDD1 PC Lashay Cody2. High risk due to history of labor in first trimester O09.895J9N0 ALVAREZ 07/23/18 gender surprise PC Lashay Melvin plan progesterone lxfdzjzixa52-52 weekMakena information/order faxed 01/24/18 EM3. History of [...] 02/22/2018 Status: F Source: [place] 2:41 PM [facility] [place], [place] [address]XGNVNQ VISITDate of Service: 02/14/18MR#: [id number] Acct: [id number]: BALBIR RUIZ Rep #: [id number]: 1995 Provider: Phyllis Byrne MDAge/Sex: [place] [facility] [place]BWCStatus: SignedIntakeVital Signs02/14/18 Height 5 ft 3 in02/14/18 Weight: 164 lb 2 oz02/14/18 Body Mass Index (BMI) 29.005 Blood Pressure 119/79IntakeVisit Reasons: INJECTIONInterpreter Required: Heidi Known Allergies Allergy (Verified 02/14/18 12:18)Medicationsprenatal vitamin,calcium,qrczbicq-nmrq-uqnqe acid tablet 1 tab PO QDAY 12/13/17 [HistoryConfirmed 02/14/18]hydroxyprogesterone (PF)( preserving) 250 mg/mL (1 mL) IM oil 250 mg IM QWEEK 02/07/18[History Confirmed 02/14/18]Post menopausal: NoPatient : YesNursing NoteHeather presented for a Cherelle injection. Patient here with sister to be educated onadministering [place] injection. Sister has given IM injections in [...] leftgluteal muscle. 1 ml was administer. Lot #[id number], expiration date 03/25/2020. Patient will nowbe getting these injections in the home setting.02/22/18 1441 <Electronically signed by Phyllis Byrne MD>Date Phyllis Byrne MDCosigner Signature: Date (if applicable)CC: OFFICE VISIT REPORT Observed: 02/15/2018 Status: F Source: RAHUL 4:50 AM [facility] [address]BJXIUG VISITDate of Service: 02/07/18MR#: [id number] Acct: [id number]: BALBIR RUIZ Rep #: [id number]: 1995 Provider: Phyllis Byrne MDAge/Sex: 22/F [facility]Status: SignedIntakeVital Signs02/07/18 Height 5 ft 3 in02/07/18 Weight: 165 lb 2 oz02/07/18 Body Mass Index (BMI) 29.205 Blood Pressure 120/64IntakeVisit Reasons: PROGESTERONE INJECTION -16 WEEKSInterpreter Required: NoAllergiesNo Known Allergies Allergy (Verified 02/14/18 12:18)Medicationsprenatal vitamin,calcium,jvtmalqp-bxhu-ngzok acid tablet 1 tab PO QDAY 12/13/17 [HistoryConfirmed 02/14/18]hydroxyprogesterone (PF)( preserving) 250 mg/mL (1 mL) IM oil 250 mg IM QWEEK 02/07/18[History Confirmed 02/14/18]Post menopausal: NoPatient : YesOffice ProceduresInjectionsProcedure performed by: Linda Narayanan number: [id number]: BabyBusExpire date: 03/25/20Dose of injection: 1 mLSite of injection: right gluteal IMMedication Given: YesAdditional Details: Patient tolerated [place] injection well.02/15/18 0450 <Electronically signed by Phyllis Byrne MD>Date Phyllis Byrne MDCosigner Signature: Date (if applicable)CC: PRODUCTION CONTROL ANALYST OFFICE VISIT Observed: 01/24/2018 Status: F Source: RAHUL REPORT 12:16 PM [facility] REPOSITORY [facility] [address] [phone] VISITDate of Service: 01/24/18MR#: [id number] Acct: [id number]: BALBIR RUIZ Rep #: [id number]: 1995 Provider: JOEL Levy/Sex: 22/F Location: [facility] [place].BWCStatus: SignedIntakeVital Signs01/24/18 Height 5 ft 3 in01/24/18 Weight: 162 lb 8 oz01/24/18 Body Mass Index (BMI) 28.805 Blood Pressure 128/74IntakeVisit Reasons: 14 weeksInterpreter Required: NoAccompanied by: husbandIs patient in pain?: NoAllergiesNo Known Allergies Allergy (Verified 01/24/18 08:49)Medicationsprenatal vitamin,calcium,cjjttjwh-asld-jxmtk acid tablet 1 tab PO QDAY 12/13/17 [HistoryConfirmed 01/24/18]Last Menstral Period: 10/16/17Zika: Zika virus screening: NegativeBreastfeeding: NoPFSHPFSHSocial HistorySmoking Status: Former smokersecond hand exposure: Noalcohol intake: neversubstance use type: does not usewhat type of physical activity do you participate in: noneadditional social history: CodyPregancy HistoryGravida 3 Elective abortionsHx Para 1 Spontaneous abortions 1Past PregnanciesDel. DatName GA/WeeksOutcome Route [facility] LgAnestheAZel LocaProviderFOBe ht en al tn04/28/16Adeline 34 live birNSVD 5lbs 9 oFemale none millersbth - pre unces agkmkxtWAW48 weeks:Details: BALBIR RUIZ is a 22 year [...] (PCR) Negative (Negative) 08/03/17Details: HIV:Urine Culture:Sequential Screen:NIPT Screen:UkbbkwrJQWBD3Twmzba Urine Glucose Negative Last Edit by Linda Narayanan on 01/24/18 08:55Office Urine Protein Negative Last Edit by Linda Narayanan on 01/24/18 08:55Assessment AND PlanProblems1. High risk due to history of labor in first trimester O09.066E2J7 ALVAREZ 07/23/18 PC Pocola Melvin plan progesterone injections 16-36 weeks2. Supervision [...] of Z3A. 1216 <Electronically signed by Leda CORTEZC>Date Leda CORTEZCCosigner Signature: Date (if applicable)CC: PRODUCTION CONTROL ANALYST OFFICE VISIT Observed: 01/04/2018 Status: F Source: RAHUL REPORT 6:21 AM [facility] [address], [place] [phone] VISITDate of Service: 12/27/17MR#: [id number] Acct: [id number]: BALBIR RUIZ Rep #: [id number]: 1995 Provider: Phyllis Walton/Sex: 22/F Location: [facility] [place].BWCStatus: SignedIntakeVital Signs12/27/17 Height 5 ft 3 in12/27/17 Weight: 162 lb 8 oz12/27/17 Body Mass Index (BMI) 28.804 Blood Pressure 137/79IntakeVisit Reasons: (OB)Gas Station Clerk Required: NoAccompanied by: husbandIs patient in pain?: NoAllergiesNo Known Allergies Allergy (Verified 12/27/17 08:35)Medicationsprenatal vitamin,calcium,xiwwngqw-locw-nbikb acid tablet 1 tab PO QDAY 12/13/17 [HistoryConfirmed 12/27/17]Last Menstral Period: 10/16/17Zika: Zika virus screening: NegativePFSHPFSHSocial HistorySmoking Status: Former smokersecond hand exposure: Noalcohol intake: neversubstance use type: does not usewhat type of physical activity do you participate in: noneadditional social history: CodyPregancy HistoryGravida 3 Elective abortionsHx Para 1 Spontaneous abortions 1Past PregnanciesDel. DatName GA/WeeksOutcome Route [facility] WeigInfant GLabor LgAnesthesDel LocaProviderFOBe ht en th [...] DNA (PCR) Cancelled 12/13/17Details: HIV:Urine Culture:Sequential Screen:NIPT Screen:SnfnvcjIJZTE0Xppsqo Urine Glucose Negative Last Edit by Linda Narayanan on 12/27/17 08:39Office Urine Protein Negative Last Edit by Linda Narayanan on 12/27/17 08:39Assessment AND PlanProblems1. High risk due to history of labor in first trimester O09.546L2B8 ALVAREZ 07/23/18 PC Lashay Melvin plan progesterone injections 16-36 weeks2. History of miscarriage, currently O09.2993. Supervision of high risk in first trimester O09.91 EDD1 PC Pocola CodyPlanOrders placed: noneACOG trimester education reviewed and updated.see problem list details for updated plan management information.GA appropriate handout given.OrdersOrders:CodingLevel of Care CodeOB RoutineDiagnosesHigh risk due to history of labor in first trimester O09.211Trimester: first trimesterHistory of miscarriage, currently O09.299Supervision of high risk in first trimester O09.Trimester: first jctagwokr34/11/18 0621 <Electronically signed by Phyllis Byrne MD>Date Phyllis Byrne MDCosigner Signature: Date (if applicable)CC: CBC W/DIFF, AUTOMATED Collected: 12/27/2017 Status: F Source: RAHUL 8:58 AM [facility] REPOSITORY TYPE CODE TESTS RESULT OUT OF [...] 1.78 Performed By: #### L100.0100, B101.7450 #### [facility] [address] [place], [place], [id number] TYPE AND SCREEN Collected: 12/27/2017 Status: F Source: RAHUL 8:58 AM [facility] REPOSITORY Order Comment: Reason for Type AND Screen/Red Cells: TYPE CODE TESTS RESULT OUT OF RANGE REFERENCE UNITS LAB B10.0800 Normal BLOOD A TYPE GEL POSITIVE LAB B100.4000 Normal Antibody NEGATIVE Screen Performed By: #### L100.0100, B101.7450 #### [facility] [address] [place] [address]. [facility] [address] RUBELLA IGG Collected: 12/27/2017 Status: F Source: [place] 8:58 AM [facility] REPOSITORY TYPE CODE TESTS RESULT OUT OF RANGE REFERENCE UNITS LAB L509.4000 Normal IU/mL Rubella 26.3 IgG Result Comment: Antibody results Interpretation of Immune Status < 5 IU/ml Presumed Non-immune 5 - < 10 IU/ml Equivocal > or = 10 IU/ml Presumed Immune Performed By: #### L509.4000, L3890.6005 #### [facility] [address] [place] [address]. [facility] [address] #### L3100.0390 #### [facility] (refer to report for specific site) refer to report for address and phone number HIV - [facility] Collected: 12/27/2017 Status: F Source: [place] 8:58 AM [facility] REPOSITORY TYPE CODE TESTS RESULT OUT OF RANGE REFERENCE UNITS LAB L3890.6005 Normal Nonreactive HIV - [facility] Non-Reactive Performed By: #### L509.4000, L3890.6005 #### [facility] [address] [place] [address], [address] #### L3100.0390 #### [facility] (refer to report for specific site) refer to report for address and phone number HEPATITIS B SURFACE Collected: 12/27/2017 Status: F Source: [place] AG 8:58 AM [facility] REPOSITORY TYPE CODE TESTS RESULT OUT OF RANGE REFERENCE UNITS LAB L3100.0400 Normal Negative HB Negative SURF AG Result Comment: Performed at: - [facility] [id number] Passenger Booking Clerk: Costa Hawkins PhD, Phone: [phone] Performed By: #### L509.4000, L3890.6005 #### [facility] [address] [place] [address] #### L3100.0390 #### [facility] (refer to report for specific site) refer to report for address and phone number RAPID PLASMIN REAGIN Collected: 12/27/2017 Status: F Source: RAHUL (RPR) 8:58 AM [facility] REPOSITORY TYPE CODE TESTS RESULT OUT OF REFERENCE UNITS RANGE LAB L700.5000 Normal NONREACTIVE RPR NONREACTIVE Performed By: #### L700.5000 #### [place] [facility] [address] [place], [address] PRODUCTION CONTROL ANALYST OFFICE VISIT Observed: 12/13/2017 Status: F Source: RAHUL REPORT 9:10 PM [facility] REPOSITORY [facility] [address], [place] [phone] VISITDate of Service: 12/13/17MR#: [id number] Acct: [id number]: BALBIR RUIZ Rep #: [id number]: 1995 Provider: Phyllis Byrne MDAge/Sex: 22/F [facility]Status: SignedIntakeVital Signs12/13/17 Height 5 ft 3 in12/13/17 Weight: 160 lb 4 oz12/13/17 Body Mass Index (BMI) 28.303 Blood Pressure 121/66IntakeVisit Reasons: NEW OB LMP 10/16/17Interpreter Required: NoAccompanied by: Family / OtherIs patient in pain?: NoAllergiesNo Known Allergies Allergy (Verified 01/19/15 06:30)Medicationsprenatal vitamin,calcium,juztiuwf-fulc-poisi acid tablet 1 tab PO QDAY 12/13/17 [HistoryConfirmed 12/13/17]Last Menstral Period: 10/16/17PFSHPFSHSocial HistorySmoking Status: Former smokersecond hand exposure: Noalcohol intake: neversubstance use type: does not usewhat type of physical activity do you participate in: noneadditional social history: CodyPregancy HistoryGravida 2 Elective abortionsHx Para 1 Spontaneous abortionsPast PregnanciesDel. DatName GA/WeeksOutcome Route [facility] WeigInfant GLabor LgAnesthesD LocaProviderFOBe ht en ia tn04/28/16Adeline 34 live [...] Sensitized, Pulmonary (e.g.,TB,Asthma), Seasonalallergies, Drug/latex allergies/reactions, Breast, Pals Specialist surgery, Operations/hospitalizations,Anesthetic complications, History of abnormal pap, [...] to history of labor in first trimester O09.157Y2L2 ALVAREZ 07/23/18 PC Lashay Melvin plan progesterone [...] no longer ta500 mg PO BID Edgar EsquivelkingSupplemental InfoACOG book given and patient encouraged to read about nutrition, exercise, weightgain, and food avoidance in .CodingLevel of Care CodeOB RoutineDiagnosesHigh risk due to history of labor in first trimester O09.211Trimester: first aorupgwxf50/20/182109 <Electronically signed by Phyllis Byrne MD>Date Phyllis Byrne MDCosigner Signature: Date (if applicable)CC: Observed: 12/13/2017 Status: F Source: RAHUL CULTURE, URINE 5:43 PM [facility] REPOSITORY Urine CultureCulture exhibits no growth. Performed By: #### M100.0650 ####[facility] [address] [place], [address] CT/NG [facility] BY PCR Collected: 08/03/2017 Status: F Source: RAHUL 10:10 PM [facility] REPOSITORY TYPE CODE TESTS RESULT OUT OF RANGE REFERENCE UNITS LAB L8200.2100 Normal Negative Negative Chlam Trac PCR LAB L8200.2200 Normal Negative NG Negative by PCR Performed By: #### L8200.2000 #### [facility] [address] [place], [address] Observed: 08/03/2017 Status: F Source: RAHUL CULTURE, URINE 10:10 PM [facility] REPOSITORY Urine CultureBelow infection level. ORGANISM 1: Mixed Gram Positive OrganismsColony Count 1000-10,000MIX CULTURE Mixed contaminants. Submit a new specimen if indicated. Performed By: #### M100.0650 ####[facility] [address] [place], [address] ALLERGIES ALLERGIES DATE TYPE / CODE NAME / CODE REACTION SEVERITY SOURCE 07/11/2018 Drug No Known Unknown [place] Allergy/700597023(S Allergies/F[address] [facility]) [address](RXNORM) Hospital Repository 01/19/2015 Drug No Known [place] Allergy/190082951(S Allergies/F[address]) 88389(RXNORM) Hospital Repository Miscellaneous No Known Drug Moderate [facility] [place] Allergy/055586686(S Allergies ([facility]) Modifier) Hospital (Qualifier Repository Value) ENCOUNTERS ENCOUNTERS ADMIT/DISCHARGE ACCOUNT ADMITTING ENCOUNTER LOCATION SOURCE NUMBER CLASS 07/17/2018 [id number] Ambulatory [facility] ing:WPOUT Repository 07/12/2018/07/14/20 [id number] Quan, Inpatient [place] Ferguson Encounter [facility] ing:WPRoom: Repository FC952Fld: 1 07/12/2018 [id number] Quan Ambulatory BMSBuilding:Nolvia Ferguson MS.CF.[facility] Repository 07/12/2018 [id number] Quan Ambulatory BMSBuilding:Nolvia Ferguson MS.CF.[facility] Repository 07/11/2018/07/11/20 [id number] Ambulatory BMSBuilding:Nolvia Herr MS.[facility] Repository 07/04/2018/07/04/20 [id number] Ambulatory BMSBuilding:B [place] 18 [facility] Repository 06/26/2018 [id number] [facility] Repository 06/26/2018/06/26/20 [id number] Ambulatory BMSBuilding:B [place] 18 [facility] Repository 06/13/2018/06/13/20 [id number] Ambulatory BMSBuilding:B [place] 18 [facility] Repository 05/30/2018/05/30/20 [id number] Ambulatory BMSBuilding:B [place] 18 [facility] Repository 05/16/2018/05/16/20 [id number] Ambulatory BMSBuilding:B [place] 18 MS.[facility] Repository 04/27/2018 [id number] [facility] Repository 04/18/2018/04/18/20 [id number] Ambulatory BMSBuilding:B [place] 18 [facility] Repository 04/13/2018/04/13/20 [id number] Ambulatory BMSBuilding:B [place] 18 [facility] Repository 03/24/2018 [id number] [facility] Repository 03/24/2018/03/24/20 [id number] Ambulatory BMSBuilding:B [place] 18 [facility] Repository 03/03/2018 [id number] [facility]:OPUS Repository 02/24/2018/02/25/20 [id number] Ambulatory BMSBuilding:B [place] 18 [facility] Repository 02/14/2018/02/15/20 [id number] Ambulatory BMSBuilding:B [place] 18 [facility] Repository 02/07/2018/02/08/20 [id number] Ambulatory BMSBuilding:B [place] 18 [facility] Repository 01/24/2018/01/25/20 [id number] Ambulatory BMSBuilding:B [place] 18 [place].[facility] Repository 01/09/2018/01/10/20 [id number] Ambulatory Building:MFM [place] 18 [facility] [facility] Repository 12/27/2017 [id number] Ambulatory [facility] ing:LAB Repository 12/27/2017 [id number] Ambulatory BMSBuilding:Nolvia Rahul MS.[facility] Repository 12/27/2017/12/28/19 [id number] Ambulatory BMSBuilding:B Rahul 18 MS.[facility] Repository 12/13/2017 [id number] Ambulatory [facility] ing:LABSPEC Repository 12/13/2017/12/14/19 [id number] Ambulatory BMSBuilding:Nolvia [place] 18 MS.[facility] Repository 08/17/2017 [id number] PETERSON VALENTINA [facility] Repository 08/03/2017 [id number] Ambulatory [facility] ing:LABSPEC Repository 07/22/2017 [id number] PETERSON [facility] Repository 07/22/2017 [id number] NILAY WINKLERNE Inpatient [facility] Repository PAYERS PAYERS ENCOUNTER GUARANTOR PAYER SUBSCRIBER SOURCE 07/17/2018 BALBIR C Primary BALBIR C Rahul [id number] Insurance:FUAD DOWNS: [facility] [id number] Number: Repository [place] [address]Rsc: [id number] Date:0793-48-13NN BOX () [address] [place] [address]ZM: 07/17/2018 Secondary NOT GIVENUNK [place] Insurance:SELF PAY [facility] Number: Effective Repository Date:2018-07-17 07/12/2018 BALBIR C Primary BALBIR C Rahul [id number] Insurance:FUAD DOWNS: [facility] [id number] [facility] Number: Repository [place] [address]Jdj: [id number] Date:6080-08-01AH BOX () [address] [address]BP: 07/12/2018 Secondary NOT GIVENUNK [place] Insurance:SELF PAY [facility] Number: Effective Repository Date:2018-07-12 07/12/2018 BALBIR C Primary BALBIR C Rahul [id number] Insurance:FUAD TAYB: [facility] [id number] [facility] Number: Repository [place] [address]Ymj: [id number] Date:7167-71-28IG BOX () [address] [place] [address]XO: 07/12/2018 Secondary NOT GIVENUNK Rahul Insurance:SELF PAY [facility] Number: Effective Repository Date:2018-07-12 07/12/2018 BALBIR C Primary BALBIR C [place] [id number] Insurance:FUAD TAYB: [facility] [id number] Medical Center Number: Repository [place] [address]Atl: [id number] Date:2986-94-31WA BOX () [address] [address]AS: 07/12/2018 Secondary NOT GIVENUNK Rahul Insurance:SELF PAY [facility] Number: Effective Repository Date:2018-07-12 07/11/2018 BALBIR C Primary BALBIR C [place] [id number] Insurance:FUAD DOWNS: [facility] [id number] [facility] Number: Repository [place] [address]Bqw: [id number] Date:4326-54-36XR BOX () [address] [address]GP: 07/11/2018 Secondary NOT GIVENUNK [place] Insurance:SELF PAY [facility] Number: Effective Repository Date:2018-03-24 07/04/2018 BALBIR C Primary BALBIR C [place] [id number] Insurance:FUAD TAYB: [facility] [id number] Medical Center Number: Repository [place] [address]Nri: [id number] Date:1067-49-65PO BOX () [address] [address]KD: 07/04/2018 Secondary NOT GIVENUNK [place] Insurance:SELF PAY [facility] Number: Effective Repository Date:2018-03-24 06/26/2018 BALBIR C Primary BALBIR C Rahul [id number] Insurance:FUAD TAYB: [facility] [id number] Medical Center Number: Repository [place] [address]Gnj: [id number] Date:8626-30-30HL BOX () [address] [place] [address]CK: 06/26/2018 Secondary NOT GIVENUNK Rahul Insurance:SELF PAY [facility] Number: Effective Repository Date:2018-06-26 06/26/2018 BALBIR C Primary BALBIR C [place] [id number] Insurance:FUAD TAYB: [facility] [id number] Medical Center Number: Repository [place] [address]Kol: [id number] Date:5691-83-41KY BOX () [address] [place] [address]NE: 06/26/2018 Secondary NOT GIVENUNK Rahul Insurance:SELF PAY [facility] Number: Effective Repository Date:2018-03-24 06/13/2018 BALBIR C Primary BALBIR C Rahul [id number] Insurance:FUAD TAYB: [facility] [id number] Medical Center Number: Repository [place] [address]Men: [id number] Date:4954-43-27PC BOX () [address] [place] [address]MF: 06/13/2018 Secondary NOT GIVENUNK Rahul Insurance:SELF PAY [facility] Number: Effective Repository Date:2018-06-13 05/30/2018 BALBIR C Primary BALBIR C [place] [id number] Insurance:FUAD DOWNS: [facility] [id number] Medical Center Number: Repository [place] [address]Tgd: [id number] Date:1205-09-26FH BOX () [address] [place], [place] [address]RYAN BROWN [address]OZ: 05/30/2018 Secondary NOT GIVENUNK Rahul Insurance:SELF PAY [facility] Number: Effective Repository Date:2018-05-11 05/16/2018 BALBIR C Primary BALBIR C [place] [id number] Insurance:FUAD TAYB: [facility] [id number] Medical Center Number: Repository [place] [address]Oiq: [id number] Date:5351-30-93ER BOX () [address] [place] [address] [place] [address]WI: 05/16/2018 Secondary NOT GIVENUNK [place] Insurance:SELF PAY [facility] Number: Effective Repository Date:2018-05-16 04/27/2018 BALBIR C Primary BALBIR C Rahul [id number] Insurance:FUAD TAYB: [facility] [id number] Medical Center Number: Repository [place] [address]Cxw: [id number] Date:8740-43-51ZS BOX () [address] [place] [address]MQ: 04/27/2018 Secondary NOT GIVENUNK Rahul Insurance:SELF PAY [facility] Number: Effective Repository Date:2018-04-27 04/18/2018 BALBIR C Primary BALBIR C Rahul [id number] Insurance:FUAD TAY: [facility] [id number] Medical Center Number: Repository [place] [address]Azv: [id number] Date:5129-84-81QH BOX (HP) [address] [address]ZG: 04/18/2018 Secondary NOT GIVENUNK Rahul Insurance:SELF PAY [facility] Number: Effective Repository Date:2018-04-18 04/13/2018 BALBIR C Primary BALBIR C Rahul [id number] Insurance:FUAD TAYB: [facility] [id number] Medical Center Number: Repository [place] [address]Mqz: [id number] Date:9602-78-48FL BOX () [address] [address]IS: 04/13/2018 Secondary NOT GIVENUNK [place] Insurance:SELF PAY [facility] Number: Effective Repository Date:2018-04-13 03/24/2018 BALBIR C Primary BALBIR C [place] [id number] Insurance:FUAD RUIZB: [facility] [id number] Medical Center Number: Repository [place] [address]Hsb: [id number] Date:9339-10-50UT BOX () RYAN SCHULZ [address]JX: 03/24/2018 Secondary NOT GIVENUNK [place] Insurance:SELF PAY [facility] Number: Effective Repository Date:2018-03-24 03/24/2018 BALBIR C Primary BALBIR C [place] [id number] Insurance:FUAD TAYNolvia: [facility] [id number] Medical Center Number: Repository [place] [id number]: [id number] Date:2341-96-34IB BOX () [address] [address]PX: 03/24/2018 Secondary NOT GIVENUNK Rahul Insurance:SELF PAY [facility] Number: Effective Repository Date:2018-03-24 03/03/2018 BALBIR C Primary BALBIR C [place] [id number] Insurance:FUAD RUIZDOB: [facility] [id number] Medical Center Number: Repository [place] [address]Ydd: [id number] Date:1685-99-23XU BOX () [address] [place] [address]BU: 03/03/2018 Secondary NOT GIVENUNK Rahul Insurance:SELF PAY [facility] Number: Effective Repository Date:2018-02-24 02/24/2018 BALBIR C Primary BALBIR C Rahul [id number] Insurance:ANTHEMPolicy SCOTTDOB: [facility] Number: [id number] [facility], [id number] [place]ository [place] [address]Uqb: ve Date:7106-20-20UY BOX DONNA DONALDSON () [address]VW: 02/24/2018 Secondary BALBIR C Rahul Insurance:MEDICAIDPoli SCOTTDOB: [facility] Number: [id number] Hospital [id number] Repository Date:2018-01-24 02/24/2018 Tertiary NOT GIVENUNK [place] Insurance:SELF PAY [facility] Number: Effective Repository Date:2018-02-24 02/14/2018 BALBIR C Primary BALBIR C [place] [id number] Insurance:MEDICAIDPoli SCOTTDOB: [facility] Number: [id number] [facility], [id number] [place]ository [place] [address]Wij: Date:2018-02-07 () 02/14/2018 Secondary NOT GIVENUNK [place] Insurance:SELF PAY [facility] Number: Effective Repository Date:2018-02-14 02/07/2018 BALBIR C Primary BALBIR C Rahul [id number] Insurance:ANTHEMPolicy SCOTTDOB: [facility] Number: [id number] [facility], [id number] [place]ository [place] [address]Idu: ve Date:6221-82-72VM BOX DONNA DONALDSON () [address]IY: 02/07/2018 Secondary NOT GIVENUNK [place] Insurance:SELF PAY [facility] Number: Effective Repository Date:2018-02-07 01/24/2018 BALBIR C Primary BALBIR C [place] [id number] Insurance:ANTHEMPolicy SCOTTDOB: [facility] Number: [id number] [facility], [id number] [place]ository [place] [address]Erg: ve Date:8608-31-14SJ BOX DONNA DONALDSON () [address]TP: 01/24/2018 Secondary NOT GIVENUNK [place] Insurance:SELF PAY [facility] Number: Effective Repository Date:2018-01-24 01/09/2018 BALBIR Primary BALBIR [facility] SCOTTDOB: Insurance:ANTHEMPolicy SCOTTDOB: [facility] Number: [id number] [place] [address] [id number] [facility], ve Date: [place], [place] [address]Tjr: [place] [address] () 12/27/2017 BALBIR C Primary BALBIR C [place] [id number] Insurance:ANTHEMPolicy SCOTTDOB: [facility] Number: [id number] [facility], [id number] Repository [place] [address]Rsu: ve Date:6399-86-36TO BOX DONNA DONALDSON () [address]ST: 12/27/2017 Secondary NOT GIVENUNK [place] Insurance:SELF PAY [facility] Number: Effective Repository Date:2017-12-27 12/27/2017 BALBIR Primary BALBIR Rahul [id number] Insurance:ANTHEMPolicy SCOTTDOB: [facility] Number: [id number] [facility], [id number] Repository [place] [address]Geu: ve Date:0864-35-87[address]OTVZJDADONNA SALAZAR () [address]AX: 12/27/2017 Secondary NOT GIVENUNK Rahul Insurance:SELF PAY [facility] Number: Effective Repository Date:2017-12-27 12/27/2017 BALBIR Primary BALBIR [place] [id number] Insurance:ANTHEMPolicy SCOTTDOB: [facility] Number: [id number] [facility], [id number] [place]ository [place] [address]Wja: ve Date:2339-42-51HE [address] [place] [address] () [address]TI: 12/27/2017 Secondary NOT GIVENUNK [place] Insurance:SELF PAY [facility] Number: Effective Repository Date:2017-12-27 12/13/2017 BALBIR Primary BALBIR [place] [id number] CR Insurance:ANTHEMPolicy SCOTTDOB: [address] Number: [id number] Hospital [address]Wct: (458) [id number] Repository [phone] () ve Date:2752-65-23SE [address] [place] [address]PD: 12/13/2017 Secondary NOT GIVENUNK Rahul Insurance:SELF PAY [facility] Number: Effective Repository Date:2017-12-13 12/13/2017 BALBIR Primary BALBIR Rahul [id number] CR Insurance:ANTHEMPolicy SCOTTDOB: [address] Number: [id number] Hospital [address]Vax: ([phone]) [id number] Repository [phone] () ve Date:7538-43-60LR [address] [place] [address]XF: 12/13/2017 Secondary NOT GIVENUNK [place] Insurance:SELF PAY [facility] Number: Effective Repository Date:2017-12-13 08/17/2017 BALBIR Primary BALBIR Ata Garnett SARADOB: Insurance:ANTHEM BLUE SCOTTDOB: [facility] [id number] [employer] [id number] [facility] [address] Repository [address] [place] [address] Number: 257[facility] [address]Wvv: (330) [id number] [place] [address] [phone] (HP) Date:Plan Name:B2 08/03/2017 BALBIR Primary Insurance:SELF BALBIR [id number] Number: [facility] [address]Wdm: (330) Date: Repository [phone] (HP) 07/22/2017 BALBIR Primary BALBIR C Ata RUIZB: Insurance:TIFFANY RUIZB: [facility] TapFunder [id number] [facility] [address] Repository [address] [place] [address] Number: 257[facility] [address]Mon: (330) [id number] [place] [id number] [phone] (HP) Date:Plan Name: 07/22/2017 BALBIR Primary BALBIR Ata RUIZB: [facility] MAGGIB: [facility] [id number] [facility] [address] Repository [address] [place] [address] Number: 257[facility] [address]Jeq: (330) [id number] [place] [address] [phone] (HP) Date:Plan Name:B2
== END 2018-07-17 14:10 | disposition home or self-care (01) ==
LOC: WPOUT 13:12 → WP 13:13
PROVIDERS: Referring Provider Obstetrics & Gynecology; Visit Provider Obstetrics & Gynecology
DX: Z39.1 Encounter for care and examination of lactating mother (principal)
CPT/HCPCS: 96152

== ENCOUNTER → 2018-09-01 18:01 | Outpatient (CLI) | payer MEDICAID, SELFPAY ==
[2018-09-01 13:31] VITALS: BMI 34.0
[2018-09-06 09:25] LABS: HPV Reflexed? NOT INDICATED
== END ==
PROVIDERS: Referring Provider Obstetrics & Gynecology; Visit Provider Obstetrics & Gynecology
DX: Z12.4 Encounter for screening for malignant neoplasm of cervix (principal)
CPT/HCPCS: 87624; 88175; G0145

== ENCOUNTER → 2018-10-24 08:03 | Outpatient (CLI) | payer MEDICAID, SELFPAY ==
[2018-10-19 09:44] VITALS: BMI 33.5
--- NOTE | 2018-10-24 08:06 | US_ITS ---
STUDY: ULTRASOUND TRANSVAGINAL CLINICAL: Female, 23 years old. IUD placement TECHNIQUE: Transvaginal COMPARISON: None. FINDINGS: Normal uterine size measuring 7.3 cm in maximal craniocaudal dimension. There are no myometrial masses. Normal endometrial thickness measuring 4.0 mm. There are no endometrial masses, and there is no fluid in the endometrial cavity. Endometrium not seen. There is a tiny echogenic focus in the endometrium but this is not thought to represent a complete IUD. Measures only 0.4 x 0.3 x 0.2 cm Normal uterine cervix. Normal right ovary, measuring 2.5 x 1.4 x 1.1 cm. There are multiple follicles without a dominant cyst. Normal left ovary, measuring 2.3 x 1.6 x 1.4 cm. There are multiple follicles without a dominant cyst. There is no free fluid in the pelvis. US/Transvaginal Non- IMPRESSION: IUD not clearly identified. No suspicious adnexal mass or free fluid Electronically Signed: Chaitanya Moreno MD at 20:20 EST , Service support ,
== END ==
PROVIDERS: Referring Provider Nurse Practitioner Women's Health; Visit Provider Nurse Practitioner Women's Health
DX: Z30.431 Encounter for routine checking of intrauterine contraceptive device (principal)
CPT/HCPCS: 76830

== ENCOUNTER → 2018-10-25 14:14 | Outpatient (CLI) | payer MEDICAID, SELFPAY ==
[2018-10-19 10:13] VITALS: BMI 34.0
--- NOTE | 2018-10-25 14:19 | RAD_ITS ---
STUDY: X-RAY - ABDOMEN/PELVIS REASON FOR EXAM: Female, 23 years old. IUD evaluation. TECHNIQUE: Upright and supine abdomen. COMPARISON: None. FINDINGS: Normal visualized lung bases. There is an unremarkable bowel gas pattern. There is no demonstrated free abdominal air. The visualized liver, spleen and kidneys are grossly normal in size and morphology. Normal soft tissue structures. Normal visualized osseous structures. An IUD is present overlying the inferior sacrum in the midline. RAD/Abd Inc Decub and/or Erect IMPRESSION: Normal x-ray examination of the abdomen and pelvis. IUD centrally located in the pelvis. Electronically Signed: Harpreet Guevara MD at 4:44 EST , Service support ,
== END ==
PROVIDERS: Referring Provider Nurse Practitioner Women's Health; Visit Provider Nurse Practitioner Women's Health
DX: Z30.431 Encounter for routine checking of intrauterine contraceptive device (principal)
CPT/HCPCS: 74019

== ENCOUNTER 2018-11-23 08:20 | Day surgery (SDC) | payer MEDICAID, SELFPAY ==
[2018-10-26 13:18] VITALS: BMI 34.0
--- NOTE | 2018-11-22 12:16 | HP.PCM_ITS ---
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 Allergies No Known Allergies Allergy (Verified 10/26/18 13:19) Medications vitamin,calcium,dmjizlyf-ayfj-dxmjg acid tablet 1 tab PO QDAY 12/13/17 [History Confirmed 10/26/18] levonorgestrel 19.5 mcg/24 hour (4 years) intrauterine device 1 insert INTRAUTERINE ONCE 10/26/18 [History Confirmed 10/26/18] Post menopausal: No Patient : No PFSH Social History Smoking Status: Former smoker second hand exposure: No alcohol intake: never substance use type: does not use what type of physical activity do you participate in: none additional social history: Melvin HPI per SM: Details: BALBIR RUIZ is a 23 year old who presents for misplaced IUD. Imaging shows questionable intrauterine device and xray shows a sideways IUD. she has some sacral discomfort but no other complaints no fevers. Female Reproductive History Questions: Metorrhagia: No, Sexually active: Yes Pregancy History 3 Elective abortions Hx Para Spontaneous abortions 1 Hx # Term Pregnancies Ectopic pregnancies Hx # Pregnancies Multiple births # of living children ROS Const Constitutional: Denies fatigue, fever(s), headache(s), increased appetite, poor appetite, weight gain or weight loss ENT ENT: Denies dry mouth GI GI: Reports as per HPI; denies abdominal pain, constipation, nausea or vomiting : Reports as per HPI; denies difficulty urinating, painful urination, blood in urine, nipple discharge, pelvic pain, urinary frequency, urinary incontinence, urinary hesitancy, urinary urgency, vaginal discharge, vaginal dryness, vaginal odor, vaginal itching or other Skin Skin/Breast: Denies hair loss, change in hair, dry skin, breast lump, breast pain, breast skin changes or nipple discharge Exam Const General: cooperative, healthy appearing, comfortable, no acute distress, well developed Nutritional Appearance: average body habitus Orientation: alert HENMT Head: normal to inspection, normocephalic Ears: hearing grossly normal bilaterally, external ears normal Nose: external nose normal, nares normal Face and sinus: normal facial exam Neck Neck: normal visual inspection, no lymphadenopathy, trachea midline Thyroid: thyroid normal Resp Effort & Inspection: normal respiratory effort Musc Other: gross motor intact no deficits, full bilateral strength Skin General: no rashes or lesions noted Neuro Motor: muscle tone normal throughout Assessment & Plan Problems 1. Malpositioned intrauterine device (IUD), initial encounter T83.32XA Plan recommend hysteroscopic removal and possible laparoscopy.
[2018-11-23 08:45] VITALS: BP 123/73; PULSE 76; RESP 14; TEMP 36.8; O2SAT 99; BMI 32.2
[2018-11-23 08:52] LABS: Internal QC Validated? YES +Cl - CLEAR BKGD; Pregnancy, Urine Negative Negative
[2018-11-23 09:05] LABS: Hematocrit 41.4 % (37-47); Hemoglobin 13.9 g/dl (12.0-15.0); Mean Corp Hgb Conc 33.6 g/gl (32-36); Mean Corpuscular Hgb 29.1 pg (27.0-32.0); Mean Corpuscular Volume 86.8 fL (81-99); Mean Platelet Vol. 10.7 fl (6.2-12.0); Platelet Count 252 K/mm3 (150-450); RBC Distribution Width SD 40.6 fl (35.1-43.9); Red Blood Count 4.77 M/mm3 (4.2-5.4); White Blood Count 6.7 K/mm3 (4.4-11.0)
[2018-11-23 09:06] LABS: Scan Indicated on CBC? Y/N NO
[2018-11-23] MEDS: Bupivacaine 0.25% 30 ML Vial (10:23)
[2018-11-23] MEDS: FERRIC SUBSULFATE 8 GM SOLN (10:30)
[2018-11-23 10:40] VITALS: BP 123/73; BP 137/71; PULSE 102; RESP 18; TEMP 36.4; O2SAT 100
[2018-11-23 10:46] VITALS: BP 123/73; BP 132/65; PULSE 120; RESP 16; O2SAT 96
[2018-11-23 11:00] VITALS: BP 107/86; BP 123/73; PULSE 84; RESP 18; O2SAT 100
[2018-11-23 11:16] VITALS: BP 123/73; BP 124/66; PULSE 68; RESP 18; TEMP 36.6; O2SAT 98
--- NOTE | 2018-11-23 11:37 | OP.PCM_ITS ---
Problem List (1) Malpositioned IUD Status: Acute (2) Unspecified contraceptive management Status: Acute Comment: Mirena IUD 6 wk pp- NO PA REQUIRED Report of Operation Date of Procedure: 11/23/18 Pre-Operative Diagnosis: malpositioned iud Post-Operative Diagnosis: same Surgery/Procedure Performed:: hysteroscopy and diagnostic laparoscopy with re moval of IUD Description of Surgical Findings:: iud incul de sac Type of Anesthesia:: General Special Medications: none Specimen's removed: iud Drains: givens Estimated Blood Loss (mL): minimal Fluids Replaced: crystalloid Description of Procedure: Patient was taken to the operating room and placed under general anesthesia was prepped and draped in normal sterile fashion in dorsal lithotomy position. Cervix was dilated and a 5 mm a hysteroscope was introduced and no IUD was seen and therefore the decision for diagnostic laparoscopy was proceeded with and the patient's umbilicus was injected with 1% lidocaine and a 5 mm incision made and the Veress needle entered into the abdomen confirmed to be intra-abdominal with a low opening pressure of less than 5 mmHg. Abdomen was insufflated with CO2 gas and a 5 mm direct Visiport was placed followed by a left lower quadrant 5 mm port. Abdomen was explored and the IUD was noted to be in the cul-de-sac which was removed easily through 1 of the ports and abdomen was desufflated of gas all port sites were removed ointments removed from the vagina and patient was awoken and taken recovery in stable condition after the port sites were closed Grafts/Implants Used: none - Complications none
--- NOTE | 2018-11-23 11:37 | DCINST_ITS ---
Discharge Diet: No Restrictions - Increase fluid intake for the next 48 hours. Discharge Activity: Return to Normal Activity, May Drive - when you are no longer taking narcotic pain medications., May Shower, May Take a Tub Bath - in 7 days Additional Activity Instructions:: Ambulate often the next week after surgery. Nothing in the vagina for 5 days. Call your doctor if your incision/area has: Continuous Slow Oozing, Sudden Increased Bleeding, Increased Pain/ Swelling, Increased Redness, Foul Smelling Discharge Call your doctor if you observe: Fever of 101 or Higher Allergies/Adverse Reactions: Allergies No Known Allergies Allergy (Verified 11/16/18 14:17) Medications to take at Discharge vitamin,calcium,lrcdremf-xxme-jebaw acid tablet 1 tab PO QDAY 12/13/17 levonorgestrel 19.5 mcg/24 hour (4 years) intrauterine device 1 insert INTRAUTERINE ONCE 10/26/18 Primary Care Physician: Care Physician,No Primary [Primary Care Provider] - Test Results: Test results from this visit will be discussed in further detail at your follow- up appointment, if applicable. Please Follow Up With: Phyllis Glass MD - [phone]
[2018-11-23 12:44] VITALS: BP 118/75; BP 123/73; PULSE 70; RESP 16; TEMP 36.8; O2SAT 98
== END 2018-11-23 12:48 | disposition home or self-care (01) ==
LOC: SDC 08:24 → AC 08:25
PROVIDERS: Referring Provider Obstetrics & Gynecology; Visit Provider Obstetrics & Gynecology
PROC: 0UDB8ZZ Extraction of Endometrium, Via Natural or Artificial Opening Endoscopic (ICD-10-PCS; CPT 58558; principal; 2018-11-23 09:35)
PROC: (CPT 49320; 2018-11-23 09:35)
DX: T83.32XA Displacement of intrauterine contraceptive device, initial encounter (principal); Z87.891 Personal history of nicotine dependence
CPT/HCPCS: 58562; 81025; 85027; 86850; 86900; J7120; J2405

== ENCOUNTER → 2019-03-16 11:15 | Outpatient (CLI) | payer MEDICAID, SELFPAY ==
[2018-12-13 12:00] VITALS: BMI 32.2
[2019-03-16 12:51] LABS: hCG Titer Quant., Serum < 1 mIU/mL (1-3)
== END ==
PROVIDERS: Referring Provider Nurse Practitioner Women's Health; Visit Provider Nurse Practitioner Women's Health
DX: N91.2 Amenorrhea, unspecified (principal)
CPT/HCPCS: 36415; 84702

== ENCOUNTER 2021-11-26 13:28 | Outpatient (CLI) | payer BC, SELFPAY ==
[2021-11-26 14:02] LABS: hCG Titer Quant., Serum 12 mIU/mL (1-3)
== END 2021-11-26 23:59 | disposition home or self-care (01) ==
PROVIDERS: Referring Provider Obstetrics & Gynecology; Visit Provider Obstetrics & Gynecology
DX: O36.80X0 Pregnancy with inconclusive fetal viability, not applicable or unspecified (principal)
CPT/HCPCS: 36415; 84702

== ENCOUNTER 2021-11-28 09:06 | Outpatient (CLI) | payer BC, SELFPAY ==
[2021-11-28 10:34] LABS: hCG Titer Quant., Serum 3 mIU/mL (1-3)
== END 2021-11-28 23:59 | disposition home or self-care (01) ==
LOC: LAB 09:09
PROVIDERS: PCP Nurse Practitioner Family; Referring Provider Obstetrics & Gynecology; Visit Provider Obstetrics & Gynecology
DX: O36.80X0 Pregnancy with inconclusive fetal viability, not applicable or unspecified (principal); Z3A.00 Weeks of gestation of pregnancy not specified
CPT/HCPCS: 36415; 84702

== ENCOUNTER 2021-12-22 15:28 | Outpatient (CLI) | payer BC, SELFPAY ==
[2021-12-25 16:10] LABS: Dilute Prothrombin Time (dPT) 41.4 sec (0.0-47.6); Dilute Russell Viper Venom 35.7 sec (0.0-47.0); PTT-LA 35.2 sec (0.0-51.9); dPT Confirm Ratio 0.98 Ratio (0.00-1.34)
[2021-12-25 16:56] LABS: Anti-Cardiolipin Ab, IgA, Qn < 9 APL U/mL (0-11); Anti-Cardiolipin Ab, IgG, Qn < 9 GPL U/mL (0-14); Anti-Cardiolipin Ab, IgM, Qn 16 MPL U/mL (0-12); Beta-2-Glycoprotein I IgA <9 (0-25); Beta-2-Glycoprotein I IgG <9 (0-20); Beta-2-Glycoprotein I IgM <9 (0-32); Interpretation Comment: (.)
[2021-12-28 13:28] LABS: HPV Reflexed? NOT INDICATED
== END 2021-12-22 23:59 | disposition home or self-care (01) ==
LOC: PAVLAB 15:29
PROVIDERS: PCP Nurse Practitioner Family; Referring Provider Obstetrics & Gynecology; Visit Provider Obstetrics & Gynecology
DX: Z12.4 Encounter for screening for malignant neoplasm of cervix (principal); N96 Recurrent pregnancy loss
CPT/HCPCS: 36415; 86146; 86147; 88175; G0145

== ENCOUNTER → 2022-02-25 | Outpatient (CLI) | payer BC, SELFPAY ==
[2022-02-25 17:53] LABS: Amphetamine Urine VISTA NEGATIVE (<1000 ng/mL); Barbiturate Urine VISTA NEGATIVE (< 200 ng/mL); Benzodiazepine Urine VISTA NEGATIVE (< 200 ng/mL); Cocaine Urine VISTA NEGATIVE (< 300 ng/mL); Ecstacy Urine VISTA NEGATIVE (< 500 ng/mL); Methadone Urine VISTA NEGATIVE (< 300 ng/mL); PCP Urine VISTA NEGATIVE (< 25 ng/mL); THC Urine VISTA NEGATIVE (< 50 ng/mL); Vista UDS pH Range 5
[2022-03-01 13:07] LABS: Chlamydia By Nucleic Acid AMP Negative (Negative)
[2022-03-01 15:41] LABS: Gonococcus By Nucleic Acid AMP Negative (Negative)
== END | disposition home or self-care (01) ==
PROVIDERS: PCP Nurse Practitioner Family; Visit Provider Obstetrics & Gynecology
DX: Z34.90 Encounter for supervision of normal pregnancy, unspecified, unspecified trimester (principal)
CPT/HCPCS: 80307; 87086; 87491; 87591

== ENCOUNTER → 2022-03-16 | Outpatient (CLI) | payer BC, SELFPAY ==
[2022-03-16 12:05] LABS: Absolute Neutrophil Count 6.8 X10^3/uL (2.0-7.7); Basophil# 0.03 X10^3/uL; Basophil% 0.3 % (0-1); Eosinophil# 0.14 X10^3/uL; Eosinophils% 1.5 % (0-5); Hematocrit 34.4 % (37-47); Hemoglobin 12.1 g/dL (12.0-15.0); Lymphocyte % 20.3 % (19-41); Mean Corp Hgb Conc 35.2 g/dL (32-36); Mean Corpuscular Hgb 30.8 pg (27.0-32.0); Mean Corpuscular Volume 87.5 fL (81-99); Mean Platelet Vol. 10.7 fl (6.2-12.0); Monocyte# 0.45 X10^3/uL; Monocyte% 4.8 % (0-10); NRBC Flagged by Analyzer 0 % (0-5); Neutrophil % 72.7 % (47-70); Platelet Count 229 K/mm3 (150-450); RBC Distribution Width CV 12.1 % (11.6-14.6); RBC Distribution Width SD 39.5 fl (35.1-43.9); Red Blood Count 3.93 M/mm3 (4.2-5.4); White Blood Count 9.4 K/mm3 (4.4-11.0)
[2022-03-16 12:51] LABS: NATERA MAILED SPECIMEN
[2022-03-16 13:11] LABS: HIV - WCH Non-Reactive (Nonreactive); Hepatitis B Surface Antigen Non-Reactive (Nonreactive); Hepatitis C Antibody Non-Reactive (Nonreactive); Rubella IgG Equiv (Nonreactive); Syphilis Antibodies Non-reactive
[2022-03-18 13:07] LABS: Dilute Prothrombin Time (dPT) 38.8 sec (0.0-47.6); Dilute Russell Viper Venom 37.9 sec (0.0-47.0); Thrombin Time 16.2 sec (0.0-23.0); dPT Confirm Ratio 1.08 Ratio (0.00-1.34)
[2022-03-18 13:28] LABS: Anti-Cardiolipin Ab, IgA, Qn < 9 APL U/mL (0-11); Anti-Cardiolipin Ab, IgG, Qn < 9 GPL U/mL (0-14); Anti-Cardiolipin Ab, IgM, Qn 15 MPL U/mL (0-12); Beta-2-Glycoprotein I IgA <9 (0-25); Beta-2-Glycoprotein I IgG <9 (0-20); Beta-2-Glycoprotein I IgM <9 (0-32)
[2022-03-18 18:27] LABS: Interpretation Comment: (.)
== END | disposition home or self-care (01) ==
LOC: PAVLAB 11:22
PROVIDERS: PCP Nurse Practitioner Family; Referring Provider Obstetrics & Gynecology; Visit Provider Obstetrics & Gynecology
DX: O26.21 Pregnancy care for patient with recurrent pregnancy loss, first trimester (principal); Z3A.00 Weeks of gestation of pregnancy not specified
CPT/HCPCS: 36415; 85025; 86146; 86147; 86703; 86762; 86780; 86803; 86850; 86900; 86901; 87340

== ENCOUNTER → 2022-06-11 | Outpatient (CLI) | payer BC, SELFPAY ==
[2022-06-11 10:29] LABS: Absolute Lymphocyte Count 1.91 X10^3/uL (0.83-4.51); Basophil# 0.04 X10^3/uL; Basophil% 0.4 % (0-1); Eosinophil# 0.26 X10^3/uL; Eosinophils% 2.4 % (0-5); Hematocrit 34.8 % (37-47); Hemoglobin 11.6 g/dL (12.0-15.0); Lymphocyte # 1.91 X10^3/ul (0.83-4.51); Lymphocyte % 17.4 % (19-41); Mean Corp Hgb Conc 33.3 g/dL (32-36); Mean Corpuscular Hgb 30.7 pg (27.0-32.0); Mean Corpuscular Volume 92.1 fL (81-99); Mean Platelet Vol. 10.3 fl (6.2-12.0); Monocyte# 0.63 X10^3/uL; Monocyte% 5.7 % (0-10); NRBC Flagged by Analyzer 0 % (0-5); Neutrophil # 8.01 X10^3/uL (2.7-7.7); Neutrophil % 73.1 % (47-70); Platelet Count 244 K/mm3 (150-450); RBC Distribution Width CV 12.7 % (11.6-14.6); RBC Distribution Width SD 42.9 fl (35.1-43.9); Red Blood Count 3.78 M/mm3 (4.2-5.4)
[2022-06-11 10:44] LABS: Glucose Challenge Gest 1H 50g 80 mg/dL (70-140)
== END | disposition home or self-care (01) ==
LOC: PAVLAB 10:10
PROVIDERS: PCP Nurse Practitioner Family; Referring Provider Obstetrics & Gynecology; Visit Provider Obstetrics & Gynecology
DX: Z34.90 Encounter for supervision of normal pregnancy, unspecified, unspecified trimester (principal)
CPT/HCPCS: 36415; 82950; 85025

== ENCOUNTER → 2022-07-30 | Outpatient (CLI) | payer BC, SELFPAY ==
--- NOTE | 2022-07-30 11:53 | US_ITS ---
STUDY: SECOND AND THIRD TRIMESTER OBSTETRICAL ULTRASOUND - LIMITED REASON FOR EXAM: Female, 27 years old Antiphospholipid syndrome LMP: 12/17/2021. PRIOR ULTRASOUND: None. TECHNIQUE: Transabdominal TECHNICAL QUALITY: Adequate. FINDINGS: There is a single intrauterine fetus. The fetus is in a cephalic presentation. There is demonstrated cardiac activity with a heart rate of 136 bpm. There is a normal amniotic fluid volume. The largest amniotic fluid pocket measures 5.19 cm. The amniotic fluid index (CECILY) is 16.3 cm. The placenta is posterior in location and is not low lying. There are Grade 1 placental changes. The cervix measures 3.4 cm in length. BIOMETRY: BPD: 8.07 cm: 32 weeks, 3 days HC: 29.8 cm: 33 weeks, 0 days AC: 28.53 cm: 32 weeks, 4 days FL: 6.26 cm: 30 weeks, 3 days Age by LMP: 32 weeks, 1 days. ALVAREZ by LMP: 09/23/2022. age by current US: 32 weeks, 4 days. ALVAREZ by current US: 09/20/2022. Estimated weight: 2007 grams, +/- 301 grams, 53.7 percentile. US/OB Limited With Biometrics IMPRESSION: Single live uterine gestation with mean gestational age of 32 weeks and 4 days. Electronically Signed: Rohit Rodrigues MD at 8:18 EST ,
== END | disposition home or self-care (01) ==
LOC: US 11:53
PROVIDERS: PCP Nurse Practitioner Family; Referring Provider Obstetrics & Gynecology; Visit Provider Obstetrics & Gynecology
DX: O99.113 Other diseases of the blood and blood-forming organs and certain disorders involving the immune mechanism complicating pregnancy, third trimester (principal); D68.61 Antiphospholipid syndrome; Z3A.32 32 weeks gestation of pregnancy
CPT/HCPCS: 76816

== ENCOUNTER → 2022-08-27 | Outpatient (CLI) | payer BC, SELFPAY ==
--- NOTE | 2022-08-27 16:25 | US_ITS ---
STUDY: SECOND AND THIRD TRIMESTER OBSTETRICAL ULTRASOUND - LIMITED REASON FOR EXAM: Female, 27 years old. Growth. LMP: December 17, 2021. PRIOR ULTRASOUND: July 30, 2022. TECHNIQUE: Transabdominal TECHNICAL QUALITY: Adequate. FINDINGS: There is a single intrauterine fetus. The fetus is in a cephalic presentation. There is demonstrated cardiac activity with a heart rate of 158 bpm. There is a normal amniotic fluid volume. The largest amniotic fluid pocket measures 5.17 cm. The amniotic fluid index (CECILY) is 15.5 cm. The placenta is posterior in location and is not low lying. There are Grade 1 placental changes. The cervix measures 3.2 cm in length. BIOMETRY: BPD: 8.54 cm: 34 weeks, 3 days HC: 32.2 cm: 36 weeks, 3 days AC: 31.01 cm: 34 weeks, 5 days FL: 6.78 cm: 34 weeks, 6 days Age by LMP: 36 weeks, 1 days. ALVAREZ by LMP: September 23, 2022. age by prior US: 36 weeks, 4 days. ALVAREZ by prior US: September 20, 2022. age by current US: 35 weeks, 3 days. ALVAREZ by current US: September 28, 2022. Estimated weight: 2798 grams, +/- 420 grams, 45 percentile. Gender: Indeterminant US/OB Limited With Biometrics IMPRESSION: 1. Live single intrauterine of 35 weeks, 3 days. ALVAREZ is September 28, 2022. This is approximately one week behind expected gestational age by prior ultrasound. 2. EFW of 2798 g. 3. CECILY of 15.54 cm. 4. Posterior grade 1 placenta. 5. Vertex presentation. Electronically Signed: Osvaldo Moore DO at 18:15 EST ,
[2022-08-27 18:54] LABS: Group B Strep DNA By PCR Negative (Negative); Internal Control PASS; Probe Check PASS; Specimen Processing Control PASS
== END | disposition home or self-care (01) ==
PROVIDERS: PCP Nurse Practitioner Family; Referring Provider Obstetrics & Gynecology; Visit Provider Obstetrics & Gynecology
DX: Z34.90 Encounter for supervision of normal pregnancy, unspecified, unspecified trimester (principal)
CPT/HCPCS: 76816; 87081; 87653

== ENCOUNTER 2022-09-14 15:55 | Inpatient (IN) | payer BC, SELFPAY ==
[2022-09-14] VITALS (12 sets, daily range): BP systolic 114–138; BP diastolic 66–81; PULSE 85–114; TEMP 36.3–37.1; O2SAT 96–99; BMI 34.5
[2022-09-14 15:55] LABS: ROM Internal Control Test YES-OK TO RESULT pt. (Internal QC)
[2022-09-14 15:56] LABS: ROM Patient Test POSITIVE (Negative)
[2022-09-14] MEDS: Lactated Ringers 1,000 ML 50 ML IV (16:40)
[2022-09-14 16:58] LABS: Absolute Neutrophil Count 6.5 X10^3/uL (2.0-7.7); Basophil# 0.02 X10^3/uL; Basophil% 0.2 % (0-1); Eosinophil# 0.01 X10^3/uL; Eosinophils% 0.1 % (0-5); Hematocrit 36.3 % (37-47); Hemoglobin 12.5 g/dL (12.0-15.0); Lymphocyte % 13.5 % (19-41); Mean Corp Hgb Conc 34.4 g/dL (32-36); Mean Corpuscular Hgb 30.2 pg (27.0-32.0); Mean Corpuscular Volume 87.7 fL (81-99); Mean Platelet Vol. 11.1 fl (6.2-12.0); Monocyte# 0.48 X10^3/uL; Monocyte% 5.9 % (0-10); NRBC Flagged by Analyzer 0 % (0-5); Neutrophil # 6.53 X10^3/uL (2.7-7.7); Neutrophil % 79.9 % (47-70); Platelet Count 172 K/mm3 (150-450); RBC Distribution Width CV 13.3 % (11.6-14.6); RBC Distribution Width SD 42.6 fl (35.1-43.9); Red Blood Count 4.14 M/mm3 (4.2-5.4); White Blood Count 8.2 K/mm3 (4.4-11.0)
--- NOTE | 2022-09-14 17:08 | PN.OBGYN_ITS ---
Subjective Subjective pt states that her fever broke around midnight last night. per nurses vital records she has not been febrile now for 24 hours. + fm and no lof, or dec fm. She wants to go home Objective Data Objective Data Vital Signs: Vital Signs Temp Pulse BP Pulse Ox 97.3 F L 105 H 114/71 99 09/14/22 15:06 09/14/22 15:06 09/14/22 15:06 09/14/22 15:06 Weight: 195 lb 1.745 oz Body Mass Index (BMI) 34.5 Lab / Micro Data Result Diagrams: 09/14/22 16:40 Labs: Laboratory Results - last 24 hr 09/14/22 15:17: Vag Amniotic Fld Detect POSITIVE H 09/14/22 16:40: WBC 8.2, RBC 4.14 L, Hgb 12.5, Hct 36.3 L, MCV 87.7, MCH 30.2, MCHC 34.4, RDW Std Deviation 42.6, RDW Coeff of Megan 13.3, Plt Count 172, MPV 11.1, Immature Gran % (Auto) 0.400, Neut % (Auto) 79.9 H, Lymph % (Auto) 13.5 L, [place] % (Auto) 5.9, Eos % (Auto) 0.1, Baso % (Auto) 0.2, Absolute Neuts (auto) 6.5, Absolute Lymphs (auto) 1.10, Nucleated RBC % 0 ROS Constitutional Constitutional: Reports systems reviewed and no addt'l complaints, except as documented Gastrointestinal Gastrointestinal: Denies bloating, constipation, cramping, diarrhea, nausea or vomiting Genitourinary Genitourinary: Reports other Details: Denies vaginal odor, vaginal bleeding, or vaginal discharge ; Denies difficulty urinating or flank pain Physical Exam HEENT normocephalic Resp normal respiratory effort and normal air movement no CVA tenderness Extremity normal to inspection General Extremity: edema bilateral (trace ) NST FHR Rate Baby A Baseline: 140 Variability:: Moderate Decelerations:: None NST Reactive:: Yes FHR Category:: Category I Assessment & Plan (1) Sterilization: COMMENT: plan BS if RLTCS (2) Antiphospholipid antibody syndrome: COMMENT: lovenox and baby asa. plan growth US q 4 weeks,08/02 2007g 53.7% weekly NSTs at 32 weeks delivery at 39 (3) Rubella non-immune status, antepartum: COMMENT: MMR pp (4) History of section: COMMENT: patient has h/o vaginal delivery then cs for breech, desires . schedule for RLTCS and BS if no labor and cervix not favorable for IOL at 39 weeks. 09/16 with JV @ 7:30am (5) History of labor: COMMENT: pt delivered first baby at 34 weeks spontaneously. She took wei shots and 2nd baby was 38 weeks along before she went into labor but was breech and olig so had section. (6) : QUALIFIERS: Weeks of gestation: 38 weeks Qualified Code(s): Z3A.38 - 38 weeks gestation of COMMENT: GBS neg. anatomy nl, nipt low risk (7) Supervision of normal : COMMENT: PRR , ALVAREZ 09/23/22 Octavio armijo, [place] : Melvin (8) Pyelonephritis affecting : COMMENT: pt admitted for 24 hours for abx and was found to be afebrile after 24 hrs. dc'd to home with keflex. plan for macrobid when keflex rx is completed. this will need to be called in. Charges/Coding Multi Select Codes Visit Charges Visit Charges: 29065 Subs Hosp L3
--- NOTE | 2022-09-14 19:00 | NURSING ---
Epidural catheter placed in case of emergency, pt desires to go natural.
[2022-09-14] MEDS: Oxytocin 15 Units/NS 250ml 15 UNITS/250 ML IV.SOLN 2 UNITS IV (19:27)
--- NOTE | 2022-09-14 19:42 | PCM.HP.OB ---
HPI - General General Date of Admission: 09/14/22 HPI Narrative BALBIR MENDIOLA, is a 27 @ 38 weeks 6 days who presents with spontaneous rupture of membranes and desires TOLAC. the risks, benefits, and alternatives were discussed. PFSH PFSH Home Medications docosahexaenoic acid 200 mg capsule ( DHA) 200 mg PO DAILY 02/25/22 [History Last Taken 09/13/22] sertraline 25 mg tablet (Zoloft) 50 mg PO DAILY 06/11/22 [History Last Taken 09/13/22] aspirin 81 mg capsule 81 mg PO DAILY 09/14/22 [History Last Taken 09/13/22] heparin (porcine) 5,000 unit/mL (1 mL) injection cartridge 5,000 unit subcut Q12H APL syndrome 09/14/22 [History Last Taken 09/14/22 0900] Allergy/AdvReac Type Severity Reaction Status Date / Time No Known Allergies Allergy Verified 09/14/22 15:10 Social History Smoking Status: Former smoker second hand exposure: No alcohol intake: never substance use type: does not use caffeine: Yes what type of physical activity do you participate in: none seatbelt use: always do you feel safe at home: Yes additional social history: Melvin History 5 Elective abortions Hx Para 2 Spontaneous abortions 2 Hx # Term Pregnancies Ectopic pregnancies Hx # Pregnancies Multiple births # of living children 2 Past Pregnancies Del. Date Name GA/Weeks Outcome Route Bth Weight Gen Labor Lgth Anesthesia Del Locatn Provider FOB 04/28/16 [place] 34 live - Female none Mariola Thomas 07/12/18 [place] 38 live - full term Female spinal [facility] Dr. Glass Delivery Date: 04/28/16 Last Updated by: Linda Narayanan No issues during other then going into pre-term labor Delivery Date: 07/12/18 Last Updated by: Linda Narayanan Breech, no issues during or delivery ROS Constitutional Constitutional: Denies change in weight, fatigue, fever(s), headache(s), poor appetite or weakness Eyes Eyes: Denies blurry vision, change in vision, seeing flashes or spots in vision ENT HEENT: Denies dizziness, headache(s), loss taste/smell or sore throat Cardiovascular Cardiovascular: Denies chest pain, dizziness, dyspnea, irregular heart rhythm, leg edema, palpitations, rapid heart rate or vomiting Respiratory/Chest Respiratory/Chest: Denies chest tightness, cough, dyspnea or breast pain Gastrointestinal Gastrointestinal: Denies abdominal pain, anorexia, constipation, cramping, diarrhea, hemorrhoids, vomiting or weight changes Genitourinary Genitourinary: Denies dysuria, flank pain, genital lesions, genital pain, urinary frequency or urinary urgency Musculoskeletal Musculoskeletal: Denies back pain, difficulty walking, joint pain, limited range of motion, muscle cramps or numbness Integumentary Integumentary: Denies lesions or unusual bruising Neurologic Neurologic: Denies abnormal movements, abnormal speech, dizziness, numbness, seizure-like activity or syncope Psychiatric Psychiatric: Denies anxiety, behavioral changes, change in appetite, change in libido, cognitive impairment, confusion, depression, difficulty concentrating, hallucinations or suicidal thoughts Endocrine Endocrinology: Denies excessive sweating, polydipsia or polyuria Hematologic/Lymphatic Hematologic/Lymphatic: Denies easy bleeding, easy bruising or lymphadenopathy Allergic/Immunologic Allergic/Immunologic: Denies itchy eyes, lip swelling, seasonal rhinorrhea, rhinitis, throat swelling, tongue swelling, eczemia, wheezing or asthma Vital Signs Vital Signs Vital Signs: Weight Weight: 195 lb 1.745 oz Body Mass Index (BMI) 34.5 Physical Exam Const alert, oriented x3, no apparent distress and healthy appearing General Appearance: cooperative; Negative for anxious HEENT normocephalic Face and Sinus: normal facial exam Eyes EOMs intact bilaterally and no scleral icterus General Eye: normal appearance of both eyes Neck full ROM and supple Lymph Lymphatic: no lymphadenopathy noted Chest Chest: abnormal inspection of the chest Resp normal respiratory effort Effort and Inspection: able to speak in complete sentences Cardio regular rate GI soft to palpation and non-tender Inspection: gravid Palpation: soft; Negative for tender external exam normal Amniotic Fluid: ROM+plus Back/Spine no CVA tenderness Extremity normal to inspection, full ROM and no clubbing, cyanosis or edema General Extremity: Negative for calf tenderness or edema Skin Lesions: no lesions Rashes: no rashes Psych mental status grossly normal Labs Labs Labs: Blood Type A POSITIVE Antibody Screen NEGATIVE Hct 36.3 % (37-47) L Hgb 12.5 g/dL (12.0-15.0) Obstetrics US Syphilis Total Ab Non-reactive Rubella IgG Antibody Equiv (Nonreactive) Hep Bs Antigen Non-Reactive (Nonreactive) Chlamydia DNA (ROGER) Negative (Negative) Neisseria gonorrhoeae DNA (ROGER) Negative (Negative) HIV 1&2 Antibody Non-Reactive (Nonreactive) Glucose 1 Hr 50 gm 80 mg/dL (70-140) Group B Strep DNA Negative (Negative) Miscellaneous Test Assessment & Plan (1) Antiphospholipid antibody syndrome: COMMENT: lovenox pp (2) Rubella non-immune status, antepartum: COMMENT: MMR pp (3) History of section: PLAN: Plan Patient presents IOL, plan management for with pitocin/ Pain management: plans epidural. GBS negative. Management of any complications: h/o section. consent signed I [facility] and made any clinically relevant updates.
--- NOTE | 2022-09-14 20:00 | OB.TRI.HP_ITS ---
HPI - General General Date of Admission: 09/14/22 HPI Narrative BALBIR MENDIOLA, is a 27 y/o @ 38 weeks 5 days who presents to L&D for spontaneous rupture of membranes. SHe has a h/o vaginal delivery and a history of section for breech .She wishes to this Maternal Data Information ALVAREZ Calculator Estimated Delivery Date Method Current WG Current Estimate 09/23/22 Ultrasound #1 38w 5d Other Estimates 10/01/22 LMP (Certain) 37w 4d PFSH PFSH Home Medications docosahexaenoic acid 200 mg capsule ( DHA) 200 mg PO DAILY 02/25/22 [History Last Taken 09/13/22] sertraline 25 mg tablet (Zoloft) 50 mg PO DAILY 06/11/22 [History Last Taken 09/13/22] aspirin 81 mg capsule 81 mg PO DAILY 09/14/22 [History Last Taken 09/13/22] heparin (porcine) 5,000 unit/mL (1 mL) injection cartridge 5,000 unit subcut Q12H APL syndrome 09/14/22 [History Last Taken 09/14/22 0900] Allergy/AdvReac Type Severity Reaction Status Date / Time No Known Allergies Allergy Verified 09/14/22 15:10 Social History Smoking Status: Former smoker second hand exposure: No alcohol intake: never substance use type: does not use caffeine: Yes what type of physical activity do you participate in: none seatbelt use: always do you feel safe at home: Yes additional social history: Melvin History 5 Elective abortions Hx Para 2 Spontaneous abortions 2 Hx # Term Pregnancies Ectopic pregnancies Hx # Pregnancies Multiple births # of living children 2 Past Pregnancies Del. Date Name GA/Weeks Outcome Route Bth Weight Gen Labor Lgth Ane sthesia Del Locatn Provider FOB 04/28/16 [place] 34 live - Female none Mariola Thomas 07/12/18 [place] 38 live - full term Female spinal [facility] Dr. Glass Delivery Date: 04/28/16 Last Updated by: Linda Narayanan No issues during other then going into pre-term labor Delivery Date: 07/12/18 Last Updated by: Linda Narayanan Breech, no issues during or delivery Visit Details Expected Delivery Route/Plan tolac patient counseled regarding risks/benefits of trial of labor versus repeat . ACOG/uptodate education given to patient. [] % likelihood of success per calculator TOLAC consent form signed: [] Labor Preferences- CB/BF classes: [] labor support person: [] labor intervention preferences: [] pain management options preferred: [] cut cord/dad catch: [] : [] PP control planned: [] discussed possible routes of delivery and associated risks: pt wants to special requests: [] Plans Covid status: [] Flu vaccine: declines Tdap vaccine: will obtain at 36 weeks Rhogam: [] LARC form signed: [] movement and labor precautions reviewed. Problem list reviewed and updated with the most current plan of care details and appropriate orders placed. Relevant counseling for the gestational age provided. Continue routine care and follow up unless otherwise noted in visit not es/problem list details OB Flowsheet Initial Weight: Not Recorded Date -?-?-?-?-?-?-?-?-?-?-?-?- EGA Weight BP Urine Prot -?-?-?-?-?-?-?-?-?-?-?-?- Glucose FHR FuHt Pres Dilation -?-?-?-?-?-?-?-?-?-?-?-?- Effaced St Visit Note 02/25/22 -?-?-?-?-?-?-?-?-?-?-?-?- 10w 0d 159 lb 6 oz 128/80 -?-?-?-?-?-?-?-?-?-?-?-?- 180 -?-?-?-?-?-?-?-?-?-?-?-?- JV- CRL not cons istent with LMP. New alvarez is 09/23/22 03/22/22 -?-?-?-?-?-?-?-?-?-?-?-?- 13w 4d 165 lb 120/72 Negative -?-?-?-?-?-?-?-?-?-?-?-?- Negative 150 -?-?-?-?-?-?-?-?-?-?-?-?- SM- no vb lof cr amping reviewed apl panel 04/19/22 -?-?-?-?-?-?-?-?-?--?-?-?- 17w 4d 168 lb 110/68 Negative -?-?-?-?-?-?-?-?-?-?-?-?- Negative 150 -?-?-?-?-?-?-?-?-?-?-?-?- SM- no vb crampi ng 05/19/22 -?-?-?-?-?-?-?-?-?-?-?-?- 21w 6d 176 lb 8 oz 138/80 Nega tive -?-?-?-?-?-?-?-?-?-?-?-?- Negative 155 -?-?-?-?-?-?-?-?-?-?-?-?- JV- f/u ultrasou nd was normal. plan for . will need consent later in . declines flu. 06/11/22 -?-?-?-?-?-?-?-?-?-?-?-?- 25w 1d 185 lb 131/71 Negative -?-?-?-?-?-?-?-?-?-?-?-?- Negative 145 25 -?-?-?-?-?-?-?-?-?-?-?-?- SM- no vb lof go od fm no regular ctx 06/25/22 -?-?-?-?-?-?-?-?-?-?-?-?- 27w 1d 188 lb 115/75 Negative -?-?-?-?-?-?-?-?-?-?-?-?- Negative 140 27 -?-?-?-?-?-?-?-?-?-?-?-?- SM- no vb lof go od fm no regular ctx tdap today nl cbc gct 07/16/22 -?-?-?-?-?-?-?-?-?-?-?-?- 30w 1d 194 lb 4 oz 122/76 Nega tive -?-?-?-?-?-?-?-?-?-?-?-?- Negative 145 30 -?-?-?-?-?-?-?-?-?-?-?-?- JV- no lof, vagi nal bleeding or dec fm. start NSTs weekly starting 32 weeks. pt aware and will schedule 07/30/22 -?-?-?-?-?-?-?-?-?-?-?-?- 32w 1d 192 lb 110/64 Negative -?-?-?-?-?-?-?-?-?-?-?-?- Negative 150 -?-?-?-?-?-?-?-?-?-?-?-?- JV- nst reative. growth scan today. got vasectomy. 08/13/22 -?-?-?-?-?-?-?-?-?-?-?-?- 34w 1d 195 lb 102/84 Negative -?-?-?-?-?-?-?-?-?-?-?-?- Negative 150 -?-?-?-?-?-?-?-?-?-?-?-?- SM- no vb lof go od fm n oreuglar ctx 08/18/22 -?-?-?-?-?-?-?-?-?-?-?-?- 34w 6d 196 lb 6 oz 120/70 Nega tive -?-?-?-?-?-?-?-?-?-?-?-?- Negative 150 -?-?-?-?-?-?-?-?-?-?-?-?- LC- reactive NST . good fm. no lof,vb,ctx. growth scan at 36 weeks. LC- reactive NST. good fm. n o lof,vb,ctx. growth scan at 36 weeks. desires tdap next week. LC- reactive NST. good fm. n o lof,vb,ctx. growth scan at 36 weeks. desires tdap next week.heparin order placed, aware will NOT start until 36 weeks and will d/c lovenox when starts heparin. 08/27/22 -?-?-?-?-?-?-?-?-?-?-?-?- 36w 1d 198 lb 2 oz 106/73 Nega tive -?-?-?-?-?-?-?-?-?-?-?-?- Negative 150 36 Cephalic 2 -?-?-?-?-?-?-?-?-?-?-?-?- 50 -2 JV- nst re active. GBS today. no lof, vaginal bleeding, or dec fm. 09/03/22 -?-?-?-?-?-?-?-?-?-?-?-?- 37w 1d 197 lb 108/74 Negative -?-?-?--?-?-?-?-?-?-?-?-?- Negative 145 37 Cephalic 2 -?-?-?-?-?-?-?-?-?-?-?-?- 60 -2 JV- reacti ve nst. cervix is thinning out more and anticipate will be able to be induced with givens + Pit. 09/10/22 -?-?-?-?-?-?-?-?-?-?-?-?- 38w 1d 199 lb 120/84 -?-?-?-?-?-?-?-?-?-?-?-?- 140 38 Cephalic 3 -?-?-?-?-?-?-?-?--?-?-?-?- 60 -1 SM- no vb log good fm no regular ctx SM- no vb lof good fm no reg ular ctx plan IOL ROS Constitutional Constitutional: Denies change in weight, fatigue, fever(s), headache(s), poor appetite or weakness Eyes Eyes: Denies blurry vision, change in vision, seeing flashes or spots in vision ENT HEENT: Denies dizziness, headache(s), loss taste/smell or sore throat Cardiovascular Cardiovascular: Denies chest pain, dizziness, dyspnea, irregular heart rhythm, leg edema, palpitations, rapid heart rate or vomiting Respiratory/Chest Respiratory/Chest: Denies chest tightness, cough, dyspnea or breast pain Gastrointestinal Gastrointestinal: Denies abdominal pain, anorexia, constipation, cramping, diarrhea, hemorrhoids, vomiting or weight changes Genitourinary Genitourinary: Denies dysuria, flank pain, genital lesions, genital pain, urinary frequency or urinary urgency Musculoskeletal Musculoskeletal: Denies back pain, difficulty walking, joint pain, limited range of motion, muscle cramps or numbness Integumentary Integumentary: Denies lesions or unusual bruising Neurologic Neurologic: Denies abnormal movements, abnormal speech, dizziness, numbness, seizure-like activity or syncope Psychiatric Psychiatric: Denies anxiety, behavioral changes, change in appetite, change in libido, cognitive impairment, confusion, depression, difficulty concentrating, hallucinations or suicidal thoughts Endocrine Endocrinology: Denies excessive sweating, polydipsia or polyuria Hematologic/Lymphatic Hematologic/Lymphatic: Denies easy bleeding, easy bruising or lymphadenopathy Allergic/Immunologic Allergic/Immunologic: Denies itchy eyes, lip swelling, seasonal rhinorrhea, rhinitis, throat swelling, tongue swelling, eczemia, wheezing or asthma Physical Exam Const alert, oriented x3, no apparent distress and healthy appearing General Appearance: cooperative; Negative for anxious HEENT normocephalic Face and Sinus: normal facial exam Eyes EOMs intact bilaterally and no scleral icterus General Eye: normal appearance of both eyes Neck full ROM and supple Lymph Lymphatic: no lymphadenopathy noted Chest Chest: abnormal inspection of the chest Resp normal respiratory effort Effort and Inspection: able to speak in complete sentences Cardio regular rate GI soft to palpation and non-tender Inspection: gravid Palpation: soft; Negative for tender external exam normal Amniotic Fluid: ROM+plus Back/Spine no CVA tenderness Extremity normal to inspection, full ROM and no clubbing, cyanosis or edema General Extremity: Negative for calf tenderness or edema Skin Lesions: no lesions Rashes: no rashes Psych mental status grossly normal Assessment & Plan (1) Sterilization: COMMENT: plan BS if RLTCS (2) Antiphospholipid antibody syndrome: COMMENT: lovenox and baby asa. plan growth US q 4 weeks,08/02 2007g 53.7% weekly NSTs at 32 weeks delivery at 39 (3) Rubella non-immune status, antepartum: COMMENT: MMR pp (4) History of section: COMMENT: patient has h/o vaginal delivery then cs for breech, desires . schedule for RLTCS and BS if no labor and cervix not favorable for IOL at 39 weeks. 09/16 with JV @ 7:30am (5) History of labor: COMMENT: pt delivered first baby at 34 weeks spontaneously. She took wei shots and 2nd baby was 38 weeks along before she went into labor but was breech and olig so had section. (6) : QUALIFIERS: Weeks of gestation: 38 weeks Qualified Code(s): Z3A.38 - 38 weeks gestation of COMMENT: GBS neg. anatomy nl, nipt low risk (7) Supervision of normal : COMMENT: PRR , ALVAREZ 09/23/22 boyOctavio SHERRY Metz [place] : Melvin PLAN: Plan Patient presents IAL, plan expectant management for , pitocin. Pain management: plans epidural. GBS negative . Management of any complications: see above - last dose of heparin was 9 am today I have reviewed the [facility] and made any clinically relevant updates.
[2022-09-14] MEDS: LACTATED RINGERS 500 ML 999 ML IV (21:35)
[2022-09-15] VITALS (49 sets, daily range): BP systolic 108–128; BP diastolic 57–78; PULSE 73–113; RESP 16–18; TEMP 36.2–37.3; O2SAT 90–100
[2022-09-15] MEDS: LACTATED RINGERS 500 ML 999 ML IV ×2 (03:23→05:44)
[2022-09-15] MEDS: fentaNYL-bupivacaine (epidural) 100 ML BAG EPIDURAL (04:20)
[2022-09-15] MEDS: Lactated Ringers 1,000 ML 200 ML IV (05:45)
--- NOTE | 2022-09-15 06:12 | PN_ITS ---
Progress Note pt is sitting up in bed eating jello. She recently had her epidural dosed and states that she is feeling well. Currently she is on max pit and MVUs are 180's. She has made some minimal cervical change from 4.5 to 5 (from 2 am to current) current tracing: FHT: Moderate variability reactive no decelerations category I tracing currently, however reviewing the strip at 4:30 to current there have been some minor variables, a late decel and nursing reports that She has had some bloody show that contained at least [address]: q3-4 min Contractions reviewed tracing abnormalities since last note: currently improved and cat 1 A/P: TOLAC plan to keep a close eye on tracing. internal monitors are in and epidural is placed. I have explained to the patient that we will not be going over max pit dose due to risk of uterine rupture if no cervical waste/materials exchange specialist the next few hours, more bleeding, or decels will need to proceed to repeat section
[2022-09-15] MEDS: Oxytocin 10 UNITS/ML Vial IM (07:01)
[2022-09-15] MEDS: Oxytocin 15 Units/NS 250ml 15 UNITS/250 ML IV.SOLN 83 UNITS IV (07:02)
[2022-09-15] MEDS: Methylergonovine 0.2 MG/ML Ampul IM (07:08)
--- NOTE | 2022-09-15 07:13 | EX.PCM.OBRPT ---
Assessment & Plan (1) Sterilization: COMMENT: plan BS if RLTCS (2) Antiphospholipid antibody syndrome: COMMENT: lovenox and baby asa. plan growth US q 4 weeks,08/02 2007g 53.7% weekly NSTs at 32 weeks delivery at 39 (3) Rubella non-immune status, antepartum: COMMENT: MMR pp (4) History of section: COMMENT: patient has h/o vaginal delivery then cs for breech, desires . schedule for RLTCS and BS if no labor and cervix not favorable for IOL at 39 weeks. 09/16 with JV @ 7:30am (5) History of labor: COMMENT: pt delivered first baby at 34 weeks spontaneously. She took wei shots and 2nd baby was 38 weeks along before she went into labor but was breech and olig so had section. (6) : QUALIFIERS: Weeks of gestation: 38 weeks Qualified Code(s): Z3A.38 - 38 weeks gestation of COMMENT: GBS neg. anatomy nl, nipt low risk (7) Supervision of normal : COMMENT: PRR , ALVAREZ 09/23/22 Octavio armijo [place] : Melvin Maternal Data Information ALVAREZ Calculator Estimated Delivery Date Method Current WG Current Estimate 09/23/22 Ultrasound #1 38w 6d Other Estimates 10/01/22 LMP (Certain) 37w 5d Final ALVAREZ: 09/23/22 Final ALVAREZ Source: US <20 weeks Gestational age: 38 weeks 6 day Vaginal Delivery Maternal Presentation Maternal Presentation: Spontaneous Rupture of Membranes Type of Induction: Pitocin Operative Information Date of Procedure: 09/15/22 Pre-Operative Diagnosis: @ 38 weeks 6 days, srom, prior section, desires TOLAC Post-Operative Diagnosis: @ 38 weeks 6 days, srom, prior section, desires TOLAC Surgery / Procedure Performed: Spontaneous Vaginal Delivery Type of Anesthesia: Epidural Anesthesiologist: Hector Miller Drain: Benz to straight drain Estimated Blood Loss: 350cc Findings Description of Procedure: Patient began pushing and delivered the head in the VINAYAK presentation. The head was delivered atraumatically and a loose nuchal cord ?1 was identified and easily reduced over the infant's head. The anterior and posterior shoulders delivered without complication followed by the rest of the and the infant was placed on the maternal abdomen. Delayed cord clamping was employed for approximately 60 seconds. Cord was clamped and cut and gentle traction was applied to the cord and the placenta delivered spontaneously immediately following it was noted to be intact with three-vessel cord. The perineum and vagina were inspected and noted to have a 1st degree laceration, repaired with a 2-0 vicryl suture. EBL was 350cc. Patient and infant tolerated delivery well. Presentation: Vertex Amniotic Membrane Rupture Type: Spontaneous Time of Membrane Rupture: 10 am 09/14/22 Amniotic Fluid Description: Clear Placental Delivery Description: Spontaneous Placenta Disposition: [facility] Cord Vessel Description: 3 Vessels Cord Entanglement: Around neck x 1, loose Nuchal Cord Compression: Without compression A Gender: Male (1 minute): 7 (5 minute): 9 Delayed Cord Clamping: Yes Post Vaginal Delivery Medications Given After Delivery: IV Pitocin Laceration: 1st degree Multi Select Codes Urinary/Genital Urinary/Genital CPT Codes: 66021 Vaginal Delivery [facility]
[2022-09-15] MEDS: Enoxaparin 40 MG/0.4 ML Syringe SC (15:16)
[2022-09-15] MEDS: Acetaminophen 500 MG Tablet 1000 MG PO (16:19)
[2022-09-15] MEDS: Ibuprofen 600 MG Tablet PO (21:18)
[2022-09-15] MEDS: Sertraline 50 MG Tablet PO (22:39)
[2022-09-16] VITALS (8 sets, daily range): BP systolic 106–125; BP diastolic 65–86; PULSE 74–99; RESP 15–16; TEMP 36.1–36.5; O2SAT 95–100
--- NOTE | 2022-09-16 07:53 | PCM.PN.OB ---
Subjective Subjective Patient doing well without complaints. Tolerating PO. Ambulating and voiding without difficulty. Feeding well. Denies chest pain, shortness of breath, calf pain/swelling, fevers, chills, lightheadedness. Objective Data Objective Data Vital Signs: Vital Signs Temp Pulse Resp BP Pulse Ox O2 Del Method 97 F L 75 16 113/73 98 Room Air 09/16/22 04:12 09/16/22 04:12 09/16/22 04:12 09/16/22 04:12 09/16/22 04:12 09/16/22 04:12 Oxygen Delivery Method Room Air Weight: 195 lb 1.745 oz Body Mass Index (BMI) 34.5 Intake & Output: Intake and Output for Last 24 Hours 09/14/22 09/15/22 09/16/22 23:59 23:59 23:59 Intake Total 732.77 / 732.77 2627.26 / 2627.26 Output Total 900 / 900 Balance 732.77 / 732.77 1727.26 / 1727.26 Lab / Micro Data Result Diagrams: 09/14/22 16:40 Physical Exam Const alert and oriented x3 HEENT normocephalic Eyes PERRL Neck full ROM Resp normal respiratory effort GI soft to palpation GI Narrative: FF below U Assessment & Plan (1) Vaginal delivery: COMMENT: 10/16/21 FAYE Cunningham (2) Antiphospholipid antibody syndrome: COMMENT: lovenox pp (3) Rubella non-immune status, antepartum: COMMENT: MMR pp (4) History of section: PLAN: Plan s/p SVBAC PPD # 1 1. routine post delivery care 2. breast feeding- support given 3. rh positive 4. rubella nonimmune 5. lovenox pp 6. home today
[2022-09-16] MEDS: Enoxaparin 40 MG/0.4 ML Syringe SC (09:58)
--- NOTE | 2022-09-16 12:57 | NURSING ---
This RN educated patient that a 6 week follow up OB visit with [place] is expected. This was not noted in the discharge packet but was touched on by this RN. This RN educated that patient should also watch for signs of fever and infection, as well as no intercourse for at least 6 weeks and nothing in the vagina for 6 weeks.
== END 2022-09-16 13:10 | disposition home or self-care (01) | DRG 806 ==
LOC: WPOUT 16:02 → WP 16:02
PROVIDERS: Admitting Provider Obstetrics & Gynecology; PCP Nurse Practitioner Family; Visit Provider Obstetrics & Gynecology
DX: O76 Abnormality in fetal heart rate and rhythm complicating labor and delivery (principal); Z37.0 Single live birth; O99.12 Other diseases of the blood and blood-forming organs and certain disorders involving the immune mechanism complicating childbirth; D68.61 Antiphospholipid syndrome; O34.211 Maternal care for low transverse scar from previous cesarean delivery; O42.92 Full-term premature rupture of membranes, unspecified as to length of time between rupture and onset of labor; O69.81X0 Labor and delivery complicated by cord around neck, without compression, not applicable or unspecified; O70.0 First degree perineal laceration during delivery; Z3A.38 38 weeks gestation of pregnancy; Z79.01 Long term (current) use of anticoagulants; Z79.82 Long term (current) use of aspirin; Z87.59 Personal history of other complications of pregnancy, childbirth and the puerperium; Z87.891 Personal history of nicotine dependence
CPT/HCPCS: 59025; 59050; 84112; 85025; 86850; 86900; 86901; 99218; J7120; G0378